=== PATIENT | female | born 1935 | race Hispanic/Latino ===

== ENCOUNTER 2017-03-16 18:03 | Inpatient (IN) | payer MEDICARE, OTHER ==
[2017-03-16 18:04] VITALS: BMI 24.4
[2017-03-16] MEDS ORDERED: Nitroglycerin 2% Ointment Foilpak UD TOP ONE (18:09)
[2017-03-16] MEDS ORDERED: Metoprolol 1 mg/ml Inj IVP ONE ×2 (18:09→18:30)
--- NOTE | 2017-03-16 18:29 | CT ---
PROCEDURE: CT HEAD WITHOUT CONTRAST. HISTORY: Code Stroke. Possible CVA COMPARISON: 01/23/2015. TECHNIQUE: Axial computed tomography images were obtained through the head/brain without intravenous contrast. Radiation dose: Total exam DLP = 317.14 mGy-cm. This CT exam was performed using one or more of the following dose reduction techniques: Automated exposure control, adjustment of the mA and/or kV according to patient size, and/or use of iterative reconstruction technique. FINDINGS: HEMORRHAGE: Left temporal hemorrhage. The hemorrhagic component measure approximately 4.2 cm. Adjacent subarachnoid hemorrhage. Modest effacement of cortical sulci in the vicinity of the hemorrhage. No midline shift. BRAIN: Acute hemorrhagic process represents a new finding compared to the prior CT 01/23/2015. VENTRICLES: No evidence of midline shift. 3rd and 4th ventricles, lateral ventricles are unremarkable. CALVARIUM: Unremarkable. PARANASAL SINUSES: Unremarkable as visualized. No significant inflammatory changes. MASTOID AIR CELLS: Unremarkable as visualized. No inflammatory changes. OTHER FINDINGS: None. IMPRESSION: Acute left temporal lobe hemorrhage and adjacent subarachnoid hemorrhage. Code stroke protocol: Study completed 18:23. Results conveyed verbally at 18:25. Findings discussed directly with attending physician in the emergency department Dr. Munson Interpretation finalized and available for review 18:27. March 16, 2017.
--- NOTE | 2017-03-16 18:51 | C.PDOC ---
History Of Present Illness 81 y/o female brought to ED by EMS for sudden change of mental status and right facial droop at 5:15 PM, patient arrives to ER at 6:00 PM. Patient with PMHx of atrial fibrillation. Patient was asked to stopped blood thinner 2 days ago due to nose bleeds and rectal bleeding. Otherwise, denies extremity weakness or numbness, headache, chest pain, shortness of breath, nausea, vomiting, fever, chills. Patient noted to be hypertensive and tachycardic in the field as per EMS. Time Seen by Provider: 03/16/17 18:08 Chief Complaint (Nursing): Weakness/Neurological Deficit History Per: Patient History/Exam Limitations: no limitations Onset/Duration Of Symptoms: Sudden Onset (@ 17:15) Current Symptoms Are (Timing): Still Present Fall Associated With With Symptoms: No Recent travel outside of the [place]: No Past Medical History Reviewed: Historical Data, Nursing Documentation, Vital Signs Vital Signs: Last Vital Signs Temp 98.1 F 03/16/17 18:15 Pulse 61 03/16/17 20:25 Resp 17 03/16/17 20:25 BP 139/75 03/16/17 20:25 Pulse Ox 100 03/16/17 20:25 - Medical History PMH: Arthritis, Asthma, Atrial Fibrillation, Cardia Arrhythmia (A-FIB), COPD, Deep Vein Thrombosis (Right Leg), Fractures (L Hip ORIF 2013), HTN, Hypercholesterolemia, Osteoporosis Denies: Chronic Kidney Disease - [facility] Procedures ENDO RECTUM POLYPECTOMY (02/04/15) ENDOSC POLYPECTOMY OF LG INTEST (02/04/15) OPEN REDUC-INT FIX FEMUR (08/17/14) SUTURE OF LIP LACERATION (08/17/14) TETANUS TOXOID ADMINIST (08/17/14) Family History: States: Unknown Family Hx - Social History Hx Tobacco Use: No Hx Alcohol Use: No Hx Substance Use: No - Immunization History Hx Tetanus Toxoid Vaccination: Yes Hx Influenza Vaccination: Yes Hx Pneumococcal Vaccination: Yes Review Of Systems Except As Marked, All Systems Reviewed And Found Negative. Constitutional: Negative for: Fever, Chills Cardiovascular: Negative for: Chest Pain, Palpitations Respiratory: Negative for: Cough, Shortness of Breath, Wheezing Gastrointestinal: Negative for: Nausea, Vomiting Neurological: Positive for: Weakness (left facial droop), Confusion. Negative for: Headache Physical Exam - Physical Exam Appears: Non-toxic, Confused, Other (disoriented, nonsensical speech, few words) Skin: Warm, Dry Head: Atraumatic, Normacephalic Eye(s): bilateral: Normal Inspection Chest: Symmetrical Cardiovascular: Rhythm Regular Respiratory: Normal Breath Sounds, No Rales, No Rhonchi, No Wheezing Gastrointestinal/Abdominal: Soft, No Tenderness Back: Normal Inspection Extremity: Normal ROM, Other (moving all extremities purposefully ) Other Neurological Findings: Facial Palsy (right facial droop) Extremity: Right: No Drift, Left: No Drift, Upper: No Drift, Lower: No Drift ED Course And Treatment - Laboratory Results Result Diagrams: 03/16/17 18:51 03/16/17 18:51 Lab Interpretation: Normal (TROP neg, INR 1.2) ECG: Interpreted By [place] ECG Rhythm: Atrial Fibrillation (112) ECG Interpretation: No Changes From Prior, Abnormal Rate From EC O2 Sat by Pulse Oximetry: 98 Pulse Ox Interpretation: Normal - Radiology CXR: Interpreted by [place] CXR Interpretation: Yes: No Acute Disease - CT Scan/US CT Head Code Stroke Other Rad Studies (CT/US): Radiology Report Reviewed CT/US Interpretation: IMPRESSION: Acute left temporal lobe hemorrhage and adjacent subarachnoid hemorrhage. Progress Note: CT Head ordered. CxR, EKG, bloodwork, urinalysis. Treated with nitro paste, cardizem bolus and drip. 18:10 - Paged Dr. Monsalve. 18:30 - Discussed with Dr. Morrell. Case discussed with ICU and PMD Dr. Park. 2030: Dr. Jaramillo, ICU, @ bedside, approves of treatment. diagnosis and Code status d/w family @ bedside- INR form completed. Reevaluation Time: 20:35 Reassessment Condition: Improved (during bose placement, pt fighting off nurses with normal verbage and coordinate purposeful movement of both arms and legs.) Critical Care Time - Critical Care Note Total Time (in mins): 90 Documented critical care: time excludes all time spent performing seperately billable procedures. NIHSS Stroke Scale - Date/Time Evaluation Performed Date Performed: 03/16/17 Time Performed: 18:00 - How Severe is the Stoke Level of Consciousness: 1=Drowsy LOC to Questions: 2=Neither correct LOC to commands: 2=Neither correct Best Gaze: 0=Normal Visual: 0=No visual loss Facial: 2=Partial (lower face paralysis) (R facial droop) Motor Arm - Left: 0=No drift Motor Arm - Right: 0=No drift Motor Leg - Left: 0=No drift Motor Leg - Right: 0=No drift Limb Ataxia: 0=Absent Sensory: 0=Normal Best Language: 3=Mute Dysarthia: 2=Severe, near unintelligible or worse Extinction & Inattention (Neglect): 0=Normal, no object Score: 12 Severity Of Stroke: 5-15= Moderate Stroke rTPA Inclusion/Exclusion - Refusal of Treatment Patient Refused Treatment: No - Inclusion Criteria for Altepase Patient is 18 years or Older: Yes The Clinical Diagnosis of Ischemic Stroke That is Causing a Potentially Disabling Neurological Deficit: Yes Time of Onset is Well Established to be Less Than 270 Minute Before Treatment Would Begin: Yes Risk/Benefit Discussed With Patient/Family Member Present: Yes - Exclusion Criteria for Altepase Uncontrolled Hypertension at Time of Treatment (Systolic BP above 185 or Diastolic BP above 110 mmHg): Yes Active Internal Bleeding: No Known Bleeding Diathesis Including but Not Limited to: Platelets Below 100,000/ mm,PTT Above 40 sec After Heparin Use, Current Use of Oral Anitcoagulant With INR Greater Than 1.7 or PT Greater Than 15 secs: Yes Evidence of an Intracranial Hemorrhage: Yes Evidence of Major Acute Infarct With Signs Greater Than 1/3 MCA Territory: No Suspicion of Subarachnoid Hemorrhage on Pretreatment Evaluation Even if CT Head Negative For Hemorrhage: No - Warning to TPA With Conditions Condition: Age Greater Than 75 years (intracranial bleed) Medical Decision Making Medical Decision Making: acute L temporal hemispheric bleed, pt formerly on Coumadin which was d/c'd for epistaxis and lower GI bleed, Daily ASA 81 may offer some platelet dysfunction but plt count normal Disposition Doctor Will See Patient In The: Hospital Counseled Patient/Family Regarding: Studies Performed, Diagnosis - Disposition Disposition: HOSPITALIZED Disposition Time: 20:37 Condition: GUARDED - POA Core Measure Indicators: Code Stroke - Clinical Impression Clinical Impression: Intracranial bleed - Scribe Statement The provider has reviewed the documentation as recorded by the Bertha Sim Provider Scribe Attestation: All medical record entries made by the Bertha were at my direction and personally dictated by me. I have reviewed the chart and agree that the record accurately reflects my personal performance of the history, physical exam, medical decision making, and the department course for this patient. I have also personally directed, reviewed, and agree with the discharge instructions and disposition.
[2017-03-16 18:57] LABS: BASO # 0.1 K/uL (0.0-0.2); BASO % 0.8 % (0.0-2.0); EOS # 0.2 K/uL (0.0-0.7); EOS % 3.4 % (0.0-4.0); HEMATOCRIT 42.7 % (34.0-47.0); LYMPH # 1.4 K/uL (1.0-4.3); LYMPH % 21.3 % (20.0-40.0); MEAN CELL VOLUME 90.3 fL (81.0-99.0); MEAN CORPUSCULAR HEMOGLOBIN 29.6 pg (27.0-31.0); MEAN CORPUSCULAR HGB CONC 32.8 g/dL (33.0-37.0); MEAN PLATELET VOLUME 6.7 fL (7.2-11.7); MONO # 0.7 K/uL (0.0-0.8); NRBC % 0.1 % (0.0-2.0); RED CELL DISTRIBUTION WIDTH 13.7 % (11.5-14.5); WHITE BLOOD COUNT 6.6 K/uL (4.8-10.8)
[2017-03-16 19:05] LABS: CHLORIDE 101 mmol/L (98-107); SODIUM 142 mmol/L (132-148)
[2017-03-16 19:06] LABS: INR 1.2; POTASSIUM 3.4 mmol/L (3.6-5.2)
[2017-03-16 19:07] LABS: CHOLESTEROL 149 mg/dL (0-199)
[2017-03-16 19:08] LABS: ALB/GLOB RATIO 1.4 (1.0-2.1); ALKALINE PHOSPHATASE 83 U/L (38-126); ALT/SGPT 24 U/L (9-52); AST/SGOT 42 U/L (14-36); BILIRUBIN,TOTAL 1.1 mg/dL (0.2-1.3); BLOOD UREA NITROGEN 13 mg/dL (7-17); CALCIUM 9.1 mg/dl (8.6-10.4); CARBON DIOXIDE 26 mmol/L (22-30); GFR AFRICAN-AMERICAN > 60; GLUCOSE,RANDOM 82 mg/dL (65-105); TOTAL PROTEIN 6.8 g/dL (6.3-8.3)
--- NOTE | 2017-03-16 19:11 | CP.PCM.HP ---
History of Present Illness - History of Present Illness History of Present Illness: 81 years old with PMH Hypertension AFib Chronic Hypokalemia s/p work up years ago Patient was fine until few hours before admission,s when patient was noted to have changes in mental status- talking differently , family called 911 and brought to ER - iIn ER , ct scan of the head showed left temporal hemorrhage and patient was admitted for further evaluation and management . While in ER_ family signed DNR /DNI as per patient's wish ROS - no recent fever no cough no other complaint Recently- patient was placed on coumadin for AFIB- but due to noted blood in stool, , coumadin was held- PMH AFIB Hypertension COPD Gen Arthritis Chronic HypokalemiaHistry of leg fracture years ago Scoliosis Retinal DEtachment Cholelithiasis meds losartan 100 lasix 20 prn potassium combivent metoprolol 50 bid off warfarin due to bleeding Immunization completed pneumonia social non smoker non ETOH Present on Admission - Present on Admission Any Indicators Present on Admission: No History of DVT/PE: No History of Uncontrolled Diabetes: No Urinary Catheter: No Decubitus Ulcer Present: No Review of Systems - Review of Systems Systems not reviewed;Unavailable: Altered Mental Status - Constitutional Constitutional: Other (as per family ). absent: Chills, Fever, Night Sweats - EENT Eyes: absent: Other Visual Disturbances Ears: absent: Dizziness Nose/Mouth/Throat: absent: Nasal Congestion, Sore Throat - Cardiovascular Cardiovascular: absent: Chest Pain, Pedal Edema - Respiratory Respiratory: absent: Cough, Chest Congestion - Gastrointestinal Gastrointestinal: absent: Abdominal Pain, Hematemesis, Vomiting - Genitourinary Genitourinary: absent: Difficulty Urinating, Hematuria - Integumentary Integumentary: absent: Rash, Sores - Neurological Neurological: Abnormal Speech - Psychiatric Psychiatric: Confusion - Hematologic/Lymphatic Hematologic: Other (weeks ago- rectal blood ) Past Patient History - Infectious Disease Hx of Infectious Diseases: None - Past Medical History & Family History Past Medical History?: Yes - Past Social History Smoking Status: Former Smoker - CARDIAC Hx Atrial Fibrillation: Yes Hx Cardia Arrhythmia: Yes (A-FIB) Hx Hypercholesterolemia: Yes Hx Hypertension: Yes - PULMONARY Hx Asthma: Yes Hx Chronic Obstructive Pulmonary Disease (COPD): Yes - NEUROLOGICAL Hx Neurological Disorder: No HX Cerebrovascular Accident: Yes (01/2015) - HEENT Hx HEENT Problems: No Hx Cataracts: Yes (Rock Lens Implant) - RENAL Hx Chronic Kidney Disease: No - ENDOCRINE/METABOLIC Hx Endocrine Disorders: No - HEMATOLOGICAL/ONCOLOGICAL Hx Blood Disorders: No - INTEGUMENTARY Hx Dermatological Problems: No - MUSCULOSKELETAL/RHEUMATOLOGICAL Hx Arthritis: Yes Hx Fractures: Yes (L Hip ORIF 2013) Hx Osteoporosis: Yes - GASTROINTESTINAL Hx Gastrointestinal Disorders: No Other/Comment: DENIES ANY RECTAL BLEEDING OR ANY SYMPTOMS - GENITOURINARY/GYNECOLOGICAL Hx Genitourinary Disorders: Yes Hx Incontinence: Yes - PSYCHIATRIC Hx Substance Use: No - SURGICAL HISTORY Hx Surgeries: Yes Hx Cataract Extraction: Yes Hx Eye Surgery: Yes (CATARACTS) Hx Hysterectomy: Yes (1979) Hx Open Reduction Internal Fixation: Yes (LEFT HIP REPLACEMENT WITH RODS) Hx Orthopedic Surgery: Yes (L Hip ORIF) Other/Comment: Rock retinal surgery done 2x - ANESTHESIA Hx Anesthesia: Yes Hx Anesthesia Reactions: No Hx Malignant Hyperthermia: No Meds Allergies/Adverse Reactions: Allergies Allergy/AdvReac Type Severity Reaction Status Date / Time azithromycin [From Zithromax] Allergy Verified 03/16/17 18:12 iodine Allergy Verified 03/16/17 18:12 Penicillins Allergy Verified 03/16/17 18:12 Sulfa (Sulfonamide Allergy Verified 03/16/17 18:12 Antibiotics) seafood Allergy Uncoded 03/16/17 18:12 Physical Exam - Constitutional Appears: Non-toxic - Head Exam Head Exam: ATRAUMATIC, NORMOCEPHALIC - Eye Exam Eye Exam: Normal appearance. absent: Periorbital swelling - ENT Exam ENT Exam: Mucous Membranes Moist - Neck Exam Neck exam: Positive for: Full Rom. Negative for: Meningismus - Respiratory Exam Respiratory Exam: Clear to Auscultation Bilateral, NORMAL BREATHING PATTERN - Cardiovascular Exam Cardiovascular Exam: Irregular Rhythm - GI/Abdominal Exam GI & Abdominal Exam: Normal Bowel Sounds, Soft. absent: Distended - Neurological Exam Neurological exam: Altered - Skin Skin Exam: Intact, Normal Color Results - Vital Signs Recent Vital Signs: Last Vital Signs Temp 98.1 F 03/16/17 18:15 Pulse 105 H 03/16/17 18:29 Resp 18 03/16/17 18:29 BP 156/97 H 03/16/17 18:29 Pulse Ox 98 03/16/17 19:02 - Labs Result Diagrams: 03/17/17 06:06 03/17/17 06:06 Assessment & Plan - Assessment and Plan (Free Text) Assessment: Patient with hypertension AFIB admitted for Left temporal hemorrhagic stroke, to ICU, neru/neurosurgeon consultation supportive A fib- medications willnotify her cardio Hypokalemia, for supplementation GI prophylaxis no dvt prophylaxis due to hemorrhagic stroke -
--- NOTE | 2017-03-16 22:06 | CP.PCM.CON ---
History of Present Illness - History of Present Illness History of Present Illness: CCM 81 yo female with hx A-fib /HTN /HLD /DVT /COPD /Osteoporosis /L hip ORIF /to ED after family noted altered MS and R facial droop this afternoon. Pt recently had epistaxis and rectal bleed and coumadin was d/c'd. Pt speech is incomprehensible and unable to give hx. In ED pt in rapid A-fib treated with cardizem and metoprolol. Rate controlled on monitor when seen in ED. CT showed large left temproal bleed and Neurosurgery said no inteervention. ROS- as noted All- PCN /Iodine /Azithromycin Social- ex-tob/ no etoh or drugs Meds- reviewed FH- Unknown PE T- 98.1 P-78 R-17 BP-129/78 Perrl Neck- o jvdlungs- bilat bs Heart-irreg irreg Abd- benign ext- bipedal edema Neuro- moves all ext, RUE weakness,Aphasia, Dysarthria Labs, ekg, [id number] A&P Left Temporal Bleed A-fib HTN HLD COPD Arthritis Hx DVT Osteoporosis Admit to ICU neuro checks Neurology eval Repeat CT Brain as per Neurosurgery cont rate control speech and swallow PT eval SCD's & GI prophylaxis Maintain optimal lytes ECHO Past Patient History - Infectious Disease Hx of Infectious Diseases: None - Past Medical History & Family History Past Medical History?: Yes - Past Social History Smoking Status: Former Smoker - CARDIAC Hx Atrial Fibrillation: Yes Hx Cardia Arrhythmia: Yes (A-FIB) Hx Hypercholesterolemia: Yes Hx Hypertension: Yes - PULMONARY Hx Asthma: Yes Hx Chronic Obstructive Pulmonary Disease (COPD): Yes - NEUROLOGICAL Hx Neurological Disorder: No HX Cerebrovascular Accident: Yes (01/2015) - HEENT Hx HEENT Problems: No Hx Cataracts: Yes (Rock Lens Implant) - RENAL Hx Chronic Kidney Disease: No - ENDOCRINE/METABOLIC Hx Endocrine Disorders: No - HEMATOLOGICAL/ONCOLOGICAL Hx Blood Disorders: No - INTEGUMENTARY Hx Dermatological Problems: No - MUSCULOSKELETAL/RHEUMATOLOGICAL Hx Arthritis: Yes Hx Fractures: Yes (L Hip ORIF 2013) Hx Osteoporosis: Yes - GASTROINTESTINAL Hx Gastrointestinal Disorders: No Other/Comment: DENIES ANY RECTAL BLEEDING OR ANY SYMPTOMS - GENITOURINARY/GYNECOLOGICAL Hx Genitourinary Disorders: Yes Hx Incontinence: Yes - PSYCHIATRIC Hx Substance Use: No - SURGICAL HISTORY Hx Surgeries: Yes Hx Cataract Extraction: Yes Hx Eye Surgery: Yes (CATARACTS) Hx Hysterectomy: Yes (1979) Hx Open Reduction Internal Fixation: Yes (LEFT HIP REPLACEMENT WITH RODS) Hx Orthopedic Surgery: Yes (L Hip ORIF) Other/Comment: Rock retinal surgery done 2x - ANESTHESIA Hx Anesthesia: Yes Hx Anesthesia Reactions: No Hx Malignant Hyperthermia: No Meds Allergies/Adverse Reactions: Allergies Allergy/AdvReac Type Severity Reaction Status Date / Time azithromycin [From Zithromax] Allergy Verified 03/16/17 18:12 iodine Allergy Verified 03/16/17 18:12 Penicillins Allergy Verified 03/16/17 18:12 Sulfa (Sulfonamide Allergy Verified 03/16/17 18:12 Antibiotics) seafood Allergy Uncoded 03/16/17 18:12 - Medications Medications: Current Medications Diltiazem HCl 125 mg/ Sodium (Chloride) 125 mls @ 10 mls/hr IV .[id number] EMILIE PRN Reason: 10 MG/HR Last Admin: 03/16/17 21:07 Dose: 10 mls/hr Results - Vital Signs Recent Vital Signs: Last Vital Signs Temp 98.1 F 03/16/17 18:15 Pulse 78 03/16/17 21:06 Resp 17 03/16/17 21:06 BP 129/78 03/16/17 21:06 Pulse Ox 98 03/16/17 21:56 - Labs Result Diagrams: 03/16/17 18:51 03/16/17 18:51 Labs: Laboratory Results - last 24 hr 03/16/17 03/16/17 19:28 21:02 Digoxin < 0.4 L Blood Type B NEGATIVE Antibody Screen Negative Assessment & Plan (1) Intracranial bleed Status: Acute (2) A-fib Status: Acute (3) Hypertension Status: Chronic (4) COPD (chronic obstructive pulmonary disease) Status: Chronic Priority: Low
--- NOTE | 2017-03-16 23:14 | RAD ---
HISTORY: code stroke COMPARISON: Chest x-ray performed 01/23/15 TECHNIQUE: Chest, one view. FINDINGS: Examination limited by patient obliquity and habitus. LUNGS: No focal consolidation. Scattered probable granulomas. Please note that chest x-ray has limited sensitivity for the detection of pulmonary masses. PLEURA: No significant pleural effusion identified. No definite pneumothorax . CARDIOVASCULAR: Cardiomegaly. OSSEOUS STRUCTURES: Scoliosis. Osseous demineralization. Degenerative changes of the spine and shoulders. VISUALIZED UPPER ABDOMEN: Elevation of the left hemidiaphragm. OTHER FINDINGS: None. IMPRESSION: Cardiomegaly. Evidence of prior granulomatous infection.
[2017-03-16] MEDS ORDERED: Sodium Chloride 0.9% 1,000 ML IV SCH (23:30)
--- NOTE | 2017-03-17 00:23 | CON ---
DATE: 03/16/2017 This patient is a 81-year-old lady with a known history of multi-infarct dementia and atrial fibrilla tion, was on some type of anticoagulant and to be determined by the family. Was brought in with acut e onset of dysarthria. Was found to have an intraparenchymal hemorrhage. Neurosurgical evaluation w as requested. Reviewing the CT scan, there is a rather large, mostly frontal, mildly temporal, intraparenchymal hem atoma. Already has some surrounding edema, which would indicate that it is not very acute. In any c ase, because of her atrophy, there is very minimal mass effect. In any case, the patient has been on anticoagulation. There is obviously no intervention to be done. In any case, I would not advocate evacuating this hematoma as I do not believe her neurological sta tus can be determined. Obviously, with a preexisting history of multi-infarct dementia, previous str okes, and this new dominant frontotemporal hemorrhage, her prognosis for significant recovery is quit e poor. William Morrell MD cc: 131 TT: 03/17/2017 00:22:44 Confirmation # [id number] Dictation # [id number] christian
[2017-03-17] MEDS ORDERED: Phytonadione 10 mg/ml Inj (Adult) IV STA (06:02)
[2017-03-17 06:13] LABS: BASO # 0.1 K/uL (0.0-0.2); BASO % 1.3 % (0.0-2.0); EOS % 0.1 % (0.0-4.0); HEMATOCRIT 42.2 % (34.0-47.0); LYMPH # 0.5 K/uL (1.0-4.3); LYMPH % 6.3 % (20.0-40.0); MEAN CELL VOLUME 90.7 fL (81.0-99.0); MEAN CORPUSCULAR HEMOGLOBIN 29.7 pg (27.0-31.0); MEAN CORPUSCULAR HGB CONC 32.8 g/dL (33.0-37.0); MEAN PLATELET VOLUME 6.6 fL (7.2-11.7); MONO # 0.3 K/uL (0.0-0.8); MONO % 3.9 % (0.0-10.0); PLATELET COUNT 276 K/uL (130-400); RED CELL DISTRIBUTION WIDTH 13.5 % (11.5-14.5); WHITE BLOOD COUNT 8.5 K/uL (4.8-10.8)
[2017-03-17 06:23] LABS: INR 1.3
[2017-03-17 06:26] LABS: CHLORIDE 101 mmol/L (98-107); POTASSIUM 3.4 mmol/L (3.6-5.2); SODIUM 138 mmol/L (132-148)
[2017-03-17 06:28] LABS: AST/SGOT 40 U/L (14-36); BILIRUBIN,TOTAL 1.2 mg/dL (0.2-1.3); CARBON DIOXIDE 25 mmol/L (22-30); GFR AFRICAN-AMERICAN > 60
[2017-03-17 06:29] LABS: ALB/GLOB RATIO 1.4 (1.0-2.1); ALKALINE PHOSPHATASE 79 U/L (38-126); ALT/SGPT 36 U/L (9-52); BLOOD UREA NITROGEN 8 mg/dL (7-17); CALCIUM 8.5 mg/dl (8.6-10.4); GLUCOSE,RANDOM 115 mg/dL (65-105); TOTAL PROTEIN 6.7 g/dL (6.3-8.3)
--- NOTE | 2017-03-17 08:32 | CP.PCM.CON ---
History of Present Illness - History of Present Illness History of Present Illness: stable this am eyes open l gaze pref r facial sever g;lobal dysphasia actually fairly surprising strenth on r f/u ct today prog guarded d/w family at bedside Past Patient History - Infectious Disease Hx of Infectious Diseases: None - Past Medical History & Family History Past Medical History?: Yes - Past Social History Smoking Status: Never Smoked - CARDIAC Hx Atrial Fibrillation: Yes Hx Cardia Arrhythmia: Yes (A-FIB) Hx Hypercholesterolemia: Yes Hx Hypertension: Yes Hx Peripheral Edema: Yes - PULMONARY Hx Asthma: Yes Hx Chronic Obstructive Pulmonary Disease (COPD): Yes - NEUROLOGICAL Hx Neurological Disorder: No HX Cerebrovascular Accident: Yes (01/2015) - HEENT Hx HEENT Problems: No Hx Cataracts: Yes (Rock Lens Implant) - RENAL Hx Chronic Kidney Disease: No - ENDOCRINE/METABOLIC Hx Endocrine Disorders: No - HEMATOLOGICAL/ONCOLOGICAL Hx Blood Disorders: No - INTEGUMENTARY Hx Dermatological Problems: No - MUSCULOSKELETAL/RHEUMATOLOGICAL Hx Falls: Yes - GASTROINTESTINAL Hx Gastrointestinal Disorders: No Other/Comment: DENIES ANY RECTAL BLEEDING OR ANY SYMPTOMS - GENITOURINARY/GYNECOLOGICAL Hx Genitourinary Disorders: Yes Hx Incontinence: Yes - PSYCHIATRIC Hx Substance Use: No - SURGICAL HISTORY Hx Surgeries: Yes Hx Cataract Extraction: Yes Hx Eye Surgery: Yes (CATARACTS) Hx Hysterectomy: Yes (1979) Hx Open Reduction Internal Fixation: Yes (LEFT HIP REPLACEMENT WITH RODS) Hx Orthopedic Surgery: Yes (L Hip ORIF) Other/Comment: Rock retinal surgery done 2x - ANESTHESIA Hx Anesthesia: Yes Hx Anesthesia Reactions: No Hx Malignant Hyperthermia: No Meds Allergies/Adverse Reactions: Allergies Allergy/AdvReac Type Severity Reaction Status Date / Time azithromycin [From Zithromax] Allergy Verified 03/16/17 18:12 iodine Allergy Verified 03/16/17 18:12 Penicillins Allergy Verified 03/16/17 18:12 Sulfa (Sulfonamide Allergy Verified 03/16/17 18:12 Antibiotics) seafood Allergy Uncoded 03/16/17 18:12 - Medications Medications: Current Medications Digoxin (Lanoxin) 0.125 mg IVP Q24H EMILIE Famotidine (Pepcid) 20 mg IVP DAILY EMILIE Diltiazem HCl 125 mg/ Sodium (Chloride) 125 mls @ 10 mls/hr IV .[id number] EMILIE PRN Reason: 10 MG/HR Last Admin: 03/16/17 21:07 Dose: 10 mls/hr Potassium Chloride 10 meq/ (Sodium Chloride) 1,005 mls @ 125 mls/hr IV .[id number] EMILIE Last Admin: 03/17/17 04:30 Dose: 125 mls/hr Results - Vital Signs Recent Vital Signs: Last Vital Signs Temp 98.4 F 03/17/17 00:00 Pulse 89 03/17/17 00:00 Resp 15 03/17/17 00:00 BP 129/76 03/17/17 00:00 Pulse Ox 95 03/17/17 00:00 - Labs Result Diagrams: 03/17/17 06:06 03/17/17 06:06 Labs: Laboratory Results - last 24 hr 03/16/17 03/16/17 03/16/17 19:28 21:02 22:28 WBC RBC Hgb Hct MCV MCH MCHC RDW Plt Count MPV Neut % (Auto) Lymph % (Auto) [place] % (Auto) Eos % (Auto) Baso % (Auto) Neut # Lymph # [place] # Eos # Baso # PT INR APTT Sodium Potassium Chloride Carbon Dioxide Anion Gap BUN Creatinine Est GFR ( Amer) Est GFR (Non-Af Amer) POC Glucose (mg/dL) 131 H Random Glucose Calcium Total Bilirubin AST ALT Alkaline Phosphatase Total Protein Albumin Globulin Albumin/Globulin Ratio Digoxin < 0.4 L Blood Type B NEGATIVE Antibody Screen Negative 03/17/17 03/17/17 03/17/17 06:06 06:06 06:06 WBC 8.5 RBC 4.65 Hgb 13.8 Hct 42.2 MCV 90.7 MCH 29.7 MCHC 32.8 L RDW 13.5 Plt Count 276 MPV 6.6 L Neut % (Auto) 88.4 H Lymph % (Auto) 6.3 L [place] % (Auto) 3.9 Eos % (Auto) 0.1 Baso % (Auto) 1.3 Neut # 7.5 H Lymph # 0.5 L [place] # 0.3 Eos # 0.0 Baso # 0.1 PT 14.1 H INR 1.3 APTT 31 Sodium 138 Potassium 3.4 L Chloride 101 Carbon Dioxide 25 Anion Gap 15 BUN 8 Creatinine 0.4 L Est GFR ( Amer) > 60 Est GFR (Non-Af Amer) > 60 POC Glucose (mg/dL) Random Glucose 115 H Calcium 8.5 L Total Bilirubin 1.2 AST 40 H ALT 36 Alkaline Phosphatase 79 Total Protein 6.7 Albumin 3.9 Globulin 2.7 Albumin/Globulin Ratio 1.4 Digoxin Blood Type Antibody Screen 03/17/17 07:26 WBC RBC Hgb Hct MCV MCH MCHC RDW Plt Count MPV Neut % (Auto) Lymph % (Auto) [place] % (Auto) Eos % (Auto) Baso % (Auto) Neut # Lymph # [place] # Eos # Baso # PT INR APTT Sodium Potassium Chloride Carbon Dioxide Anion Gap BUN Creatinine Est GFR ( Amer) Est GFR (Non-Af Amer) POC Glucose (mg/dL) 112 H Random Glucose Calcium Total Bilirubin AST ALT Alkaline Phosphatase Total Protein Albumin Globulin Albumin/Globulin Ratio Digoxin Blood Type Antibody Screen
[2017-03-17 08:43] LABS: NEUTROPHIL 91 % (50-75); TOTAL CELLS COUNTED 100
--- NOTE | 2017-03-17 09:57 | CT ---
PROCEDURE: CT HEAD WITHOUT CONTRAST. HISTORY: f/u ICB COMPARISON: None available. TECHNIQUE: Axial computed tomography images were obtained through the head/brain without intravenous contrast. Radiation dose: Total exam DLP = 1142.32 mGy-cm. This CT exam was performed using one or more of the following dose reduction techniques: Automated exposure control, adjustment of the mA and/or kV according to patient size, and/or use of iterative reconstruction technique. FINDINGS: HEMORRHAGE: Previously noted large hematoma, the epicenter of which is located in the left temporal lobe extending posteriorly and superiorly into the left parietal operculum and left superior parietal lobe has increased in size measuring approximately 7 cm AP x 4.7 cm trans. The hematoma surrounded by a rim of low-attenuation edema or necrotic brain tissue. Edema also seen extending along the white matter tracts of the left basal ganglia. The hematoma and attendant surrounding edema exert considerable mass effect with compression of the left lateral ventricle and overlying sulcal effacement. The temporal horns also markedly compressed and displaced medially. There is mild [id number] midline shift with septum pellucidum approximately 2.3 cm to the right of midline. BRAIN: Mild pre-existing chronic periventricular white matter ischemic changes are also felt to be present. In addition, there are chronic appearing bilateral basal nuclei lacunar type infarcts. Note made of a few tiny bubbles of air within the region of the right cavernous sinus. VENTRICLES: Unremarkable. No hydrocephalus. CALVARIUM: Unremarkable. PARANASAL SINUSES: Mild mucosal thickening left maxillary antrum and right chamber of the sphenoid sinus MASTOID AIR CELLS: Unremarkable as visualized. No inflammatory changes. OTHER FINDINGS: Again noted is a elliptical shaped radiopaque density abutting the medial aspect left orbit. Patient is status post bilateral cataract surgery. . IMPRESSION: Increase size large left temporal and parietal hematoma as detailed above. In addition, there is marked increased mass effect with compression of the left lateral ventricle particularly the left temporal horn and shift of the septum pellucidum from left to right. Overlying sulcal effacement. See above discussion for additional findings and details.
--- NOTE | 2017-03-17 12:16 | CON ---
DATE: 03/17/2017 LOCATION: The patient is in ICU bed 8. REASON FOR CONSULTATION: Abnormal change in mental status with abnormal CT scan. CHIEF COMPLAINT: The patient was brought in to [facility] by her daughter with a history of new change in mental status with right facial droop since yesterday 5:15 p.m. The patient was brought into [facility] for further evaluation. From neurological point of view, I was called in to evaluate her because of her abnormal workup while she was in the Emergency Room. HISTORY OF PRESENT ILLNESS: The patient is a 81-year-old right-handed female who is known to me from her previous stroke associating with intracerebral bleed secondary to her cardiac arrhythmias. She was stable, been started back on anticoagulation. She was stable for almost a year or so. Recently seen by me, when she was stable from neurologically. She had a followup visit with her primary physician because of rectal bleed as well as a nosebleed. Her Coumadin was on hold because of her symptoms. Yesterday, her daughter noticed her change in mental status with right nasolabial fold flattening, with speech impairment. Immediately she was brought into [facility] for further evaluation. PAST MEDICAL HISTORY: She is hypertensive, stroke, and atrial fibrillation. ALLERGIES: AZITHROMYCIN, IODINE, PENICILLIN, SULFA, AND SEAFOOD. PERSONAL HISTORY: Denies smoking or alcohol use. MEDICATIONS AT HOME: Metoprolol, furosemide, losartan, and digoxin. REVIEW OF SYSTEMS: As per H and P. PHYSICAL EXAMINATION: VITAL SIGNS: Blood pressure 121/88, with mean arterial pressure of 99, respiratory rate is 16, temperature afebrile. Pulse rate runs between 90-110. GENERAL: The patient is examined in the presence of her daughter. She is awake but confused. NECK: Supple. No carotid bruit. HEART: Sounds are regular, but tachycardia. EXTREMITIES: Seems to be weak on her right side. NEUROLOGIC EXAMINATION: MENTAL STATUS EXAMINATION: She is awake. She was not able to recognize me. Good visual cue mostly on her left side. Pupils are reactive to light. Decreased visual threat on her right side. Significant facial asymmetry manifesting as a flattening of the right nasolabial fold. Hearing seems to be intact. Her speech is not understandable presenting with a sensory aphasia, apparently Wernicke's aphasia. Tongue moist. Gag was not able to evaluate. MOTOR: She moves left side more than the right side. Right leg is externally rotated. Tone is slightly increased on the right compared with the left side. DEEP TENDON REFLEXES: Trace on either side. Plantars are upgoing on both sides. SENSORY EXAMINATION: Significantly decreased to pain on the right side to compare with the left side. COORDINATION AND GAIT: Deferred at this time because the patient is not cooperative. CONCLUSION: Upon reviewing her history and neurological examination, the patient is presenting with dominant hemispheric temporal parietal dysfunction, presenting with change in mental status with Wernicke's aphasia, right hemiparesis, with right possible superior quadrantanopsia. Considering her history of anticoagulation due to her cardiac arrhythmia, probably the cause. Considering her age, other possible causes including amyloid angiopathy should be considered. WORKUP: CT of the head reviewed by me showed a 4.6 cm lobar hemorrhage with mild mass effect without any shift noted on her left side. BLOOD WORKUP: WBC 8.5, hemoglobin 13.8, hematocrit 42.2, platelet 276. PT 14.1 , INR 1.3, PTT 31. Sodium 138, potassium 3.4, chloride 101, bicarbonate 25. GFR more than 60, glucose 112, calcium 8.5. AST 40. Triglyceride 89, cholesterol 149, LDL 50, HDL 86 with a digoxin level 0.4. RECOMMENDATIONS: 1. Repeat CT of the head today to assess for progression of the bleed. 2. Head in elevation. Continue Schofield catheterization. 3. Stop all antiplatelet as well as anticoagulation. 4. Sequential RAMONA stockings. 5. Keep the blood pressure mean arterial pressure around 100. When medically stable, the patient definitely needs MRI of the brain. The patient had intracerebral bleed with normal coagulation profile. I think the patient may have amyloid angiopathy. No need any neurosurgical intervention at present. Continue the present management in the ICU. The patient's condition has been discussed with her doctor, and explained her prognosis, of her acute problem, as well as the progression of her issues. Nelson Gaffney MD cc: [id number] TT: 03/17/2017 12:15:27 Confirmation # [id number] Dictation # [id number]
--- NOTE | 2017-03-17 12:29 | CP.CCUPN ---
CCU Subjective - Physician Review Events Since Last Encounter (Free Text): 03/17/17 12:13 patient is alert but not following commands. CCU Objective - Vital Signs / Intake & Output Intake and Output (Last 8hrs): Intake & Output 03/16/17 03/17/17 03/17/17 22:59 06:59 14:59 Intake Total 10 1040 125 Output Total 0 950 350 Balance 10 90 -225 Intake: Intake, IV Amount 10 1040 125 Left Hand 10 1040 125 Right Antecubital 0 Oral 0 0 0 Output: Urine 0 950 350 Urethral (Bose) 0 950 350 Stool 0 0 Other: Voiding Method Indwelling Catheter - Physical Exam Physical Exam Limitations: Positive for: Altered Mental Status Head: Positive for: Atraumatic, Normocephalic Pupils: Positive for: PERRL Mouth: Positive for: Moist Mucous Membranes Respiratory/Chest: Positive for: Clear to Auscultation, Good Air Exchange Cardiovascular: Positive for: Regular Rate and Rhythm Abdomen: Positive for: Normal Bowel Sounds. Negative for: Tenderness, Distention Psychiatric: Positive for: Alert Other physical findings (Free Text): not following commands. Making some purposeful movements. - Medications Active Medications: Active Medications Generic Name Dose Route Start Last Admin Trade Name Freq PRN Reason Stop Dose Admin Digoxin 0.125 mg 03/17/17 18:00 Lanoxin IVP Q24H EMILIE Famotidine 20 mg 03/17/17 10:00 03/17/17 09:49 Pepcid IVP 20 mg DAILY EMILIE Administration Diltiazem HCl 125 mg/ Sodium 125 mls @ 10 mls/hr 03/16/17 21:03 03/16/17 21: 07 Chloride IV 10 mls/hr .[id number] EMILIE Administration 10 MG/HR Potassium Chloride 10 meq/ 1,005 mls @ 125 mls/hr 03/17/17 01:45 03/17/17 04: 30 Sodium Chloride IV 125 mls/hr .Q8H3M EMILIE Administration - Patient Studies Lab Studies: Lab Studies 03/17/17 03/17/17 03/17/17 Range/Units 11:45 07:26 06:06 WBC (4.8-10.8) K/uL RBC (3.80-5.20) Mil/uL Hgb (11.0-16.0) g/dL Hct (34.0-47.0) % MCV (81.0-99.0) fL MCH (27.0-31.0) pg MCHC (33.0-37.0) g/dL RDW (11.5-14.5) % Plt Count (130-400) K/uL MPV (7.2-11.7) fL Neut % (Auto) (50.0-75.0) % Lymph % (Auto) (20.0-40.0) % [place] % (Auto) (0.0-10.0) % Eos % (Auto) (0.0-4.0) % Baso % (Auto) (0.0-2.0) % Neut # (1.8-7.0) K/uL Lymph # (1.0-4.3) K/uL [place] # (0.0-0.8) K/uL Eos # (0.0-0.7) K/uL Baso # (0.0-0.2) K/uL Neutrophils % (Manual) (50-75) % Lymphocytes % (Manual) (20-40) % Monocytes % (Manual) (0-10) % Platelet Estimate (NORMAL) RBC Morphology PT (9.7-12.2) SECONDS INR APTT (21-34) SECONDS Sodium 138 (132-148) mmol/L Potassium 3.4 L (3.6-5.2) mmol/L Chloride 101 (98-107) mmol/L Carbon Dioxide 25 (22-30) mmol/L Anion Gap 15 (10-20) BUN 8 (7-17) mg/dL Creatinine 0.4 L (0.7-1.2) MG/DL Est GFR ( Amer) > 60 Est GFR (Non-Af Amer) > 60 POC Glucose (mg/dL) 100 112 H (65-110) mg/dL Random Glucose 115 H (65-105) mg/dL Calcium 8.5 L (8.6-10.4) mg/dl Total Bilirubin 1.2 (0.2-1.3) mg/dL AST 40 H (14-36) U/L ALT 36 (9-52) U/L Alkaline Phosphatase 79 (38-126) U/L Total Protein 6.7 (6.3-8.3) g/dL Albumin 3.9 (3.5-5.0) g/dL Globulin 2.7 (2.2-3.9) gm/dL Albumin/Globulin Ratio 1.4 (1.0-2.1) Digoxin (0.8-2.0) ng/mL Blood Type Antibody Screen 03/17/17 03/17/17 03/16/17 Range/Units 06:06 06:06 22:28 WBC 8.5 (4.8-10.8) K/uL RBC 4.65 (3.80-5.20) Mil/uL Hgb 13.8 (11.0-16.0) g/dL Hct 42.2 (34.0-47.0) % MCV 90.7 (81.0-99.0) fL MCH 29.7 (27.0-31.0) pg MCHC 32.8 L (33.0-37.0) g/dL RDW 13.5 (11.5-14.5) % Plt Count 276 (130-400) K/uL MPV 6.6 L (7.2-11.7) fL Neut % (Auto) 88.4 H (50.0-75.0) % Lymph % (Auto) 6.3 L (20.0-40.0) % [place] % (Auto) 3.9 (0.0-10.0) % Eos % (Auto) 0.1 (0.0-4.0) % Baso % (Auto) 1.3 (0.0-2.0) % Neut # 7.5 H (1.8-7.0) K/uL Lymph # 0.5 L (1.0-4.3) K/uL [place] # 0.3 (0.0-0.8) K/uL Eos # 0.0 (0.0-0.7) K/uL Baso # 0.1 (0.0-0.2) K/uL Neutrophils % (Manual) 91 H (50-75) % Lymphocytes % (Manual) 7 L (20-40) % Monocytes % (Manual) 2 (0-10) % Platelet Estimate Normal (NORMAL) RBC Morphology Normal PT 14.1 H (9.7-12.2) SECONDS INR 1.3 APTT 31 (21-34) SECONDS Sodium (132-148) mmol/L Potassium (3.6-5.2) mmol/L Chloride (98-107) mmol/L Carbon Dioxide (22-30) mmol/L Anion Gap (10-20) BUN (7-17) mg/dL Creatinine (0.7-1.2) MG/DL Est GFR ( Amer) Est GFR (Non-Af Amer) POC Glucose (mg/dL) 131 H (65-110) mg/dL Random Glucose (65-105) mg/dL Calcium (8.6-10.4) mg/dl Total Bilirubin (0.2-1.3) mg/dL AST (14-36) U/L ALT (9-52) U/L Alkaline Phosphatase (38-126) U/L Total Protein (6.3-8.3) g/dL Albumin (3.5-5.0) g/dL Globulin (2.2-3.9) gm/dL Albumin/Globulin Ratio (1.0-2.1) Digoxin (0.8-2.0) ng/mL Blood Type Antibody Screen 03/16/17 03/16/17 Range/Units 21:02 19:28 WBC (4.8-10.8) K/uL RBC (3.80-5.20) Mil/uL Hgb (11.0-16.0) g/dL Hct (34.0-47.0) % MCV (81.0-99.0) fL MCH (27.0-31.0) pg MCHC (33.0-37.0) g/dL RDW (11.5-14.5) % Plt Count (130-400) K/uL MPV (7.2-11.7) fL Neut % (Auto) (50.0-75.0) % Lymph % (Auto) (20.0-40.0) % [place] % (Auto) (0.0-10.0) % Eos % (Auto) (0.0-4.0) % Baso % (Auto) (0.0-2.0) % Neut # (1.8-7.0) K/uL Lymph # (1.0-4.3) K/uL [place] # (0.0-0.8) K/uL Eos # (0.0-0.7) K/uL Baso # (0.0-0.2) K/uL Neutrophils % (Manual) (50-75) % Lymphocytes % (Manual) (20-40) % Monocytes % (Manual) (0-10) % Platelet Estimate (NORMAL) RBC Morphology PT (9.7-12.2) SECONDS INR APTT (21-34) SECONDS Sodium (132-148) mmol/L Potassium (3.6-5.2) mmol/L Chloride (98-107) mmol/L Carbon Dioxide (22-30) mmol/L Anion Gap (10-20) BUN (7-17) mg/dL Creatinine (0.7-1.2) MG/DL Est GFR ( Amer) Est GFR (Non-Af Amer) POC Glucose (mg/dL) (65-110) mg/dL Random Glucose (65-105) mg/dL Calcium (8.6-10.4) mg/dl Total Bilirubin (0.2-1.3) mg/dL AST (14-36) U/L ALT (9-52) U/L Alkaline Phosphatase (38-126) U/L Total Protein (6.3-8.3) g/dL Albumin (3.5-5.0) g/dL Globulin (2.2-3.9) gm/dL Albumin/Globulin Ratio (1.0-2.1) Digoxin < 0.4 L (0.8-2.0) ng/mL Blood Type B NEGATIVE Antibody Screen Negative Laboratory Results - last 24 hr 03/16/17 03/16/17 03/16/17 19:28 21:02 22:28 WBC RBC Hgb Hct MCV MCH MCHC RDW Plt Count MPV Neut % (Auto) Lymph % (Auto) [place] % (Auto) Eos % (Auto) Baso % (Auto) Neut # Lymph # [place] # Eos # Baso # Neutrophils % (Manual) Lymphocytes % (Manual) Monocytes % (Manual) Platelet Estimate RBC Morphology PT INR APTT Sodium Potassium Chloride Carbon Dioxide Anion Gap BUN Creatinine Est GFR ( Amer) Est GFR (Non-Af Amer) POC Glucose (mg/dL) 131 H Random Glucose Calcium Total Bilirubin AST ALT Alkaline Phosphatase Total Protein Albumin Globulin Albumin/Globulin Ratio Digoxin < 0.4 L Blood Type B NEGATIVE Antibody Screen Negative 03/17/17 03/17/17 03/17/17 06:06 06:06 06:06 WBC 8.5 RBC 4.65 Hgb 13.8 Hct 42.2 MCV 90.7 MCH 29.7 MCHC 32.8 L RDW 13.5 Plt Count 276 MPV 6.6 L Neut % (Auto) 88.4 H Lymph % (Auto) 6.3 L [place] % (Auto) 3.9 Eos % (Auto) 0.1 Baso % (Auto) 1.3 Neut # 7.5 H Lymph # 0.5 L [place] # 0.3 Eos # 0.0 Baso # 0.1 Neutrophils % (Manual) 91 H Lymphocytes % (Manual) 7 L Monocytes % (Manual) 2 Platelet Estimate Normal RBC Morphology Normal PT 14.1 H INR 1.3 APTT 31 Sodium 138 Potassium 3.4 L Chloride 101 Carbon Dioxide 25 Anion Gap 15 BUN 8 Creatinine 0.4 L Est GFR ( Amer) > 60 Est GFR (Non-Af Amer) > 60 POC Glucose (mg/dL) Random Glucose 115 H Calcium 8.5 L Total Bilirubin 1.2 AST 40 H ALT 36 Alkaline Phosphatase 79 Total Protein 6.7 Albumin 3.9 Globulin 2.7 Albumin/Globulin Ratio 1.4 Digoxin Blood Type Antibody Screen 03/17/17 03/17/17 07:26 11:45 WBC RBC Hgb Hct MCV MCH MCHC RDW Plt Count MPV Neut % (Auto) Lymph % (Auto) [place] % (Auto) Eos % (Auto) Baso % (Auto) Neut # Lymph # [place] # Eos # Baso # Neutrophils % (Manual) Lymphocytes % (Manual) Monocytes % (Manual) Platelet Estimate RBC Morphology PT INR APTT Sodium Potassium Chloride Carbon Dioxide Anion Gap BUN Creatinine Est GFR ( Amer) Est GFR (Non-Af Amer) POC Glucose (mg/dL) 112 H 100 Random Glucose Calcium Total Bilirubin AST ALT Alkaline Phosphatase Total Protein Albumin Globulin Albumin/Globulin Ratio Digoxin Blood Type Antibody Screen EKG/Cardiology Studies: Cardiology / EKG Studies 03/16/17 22:30 ELECTROCARDIOGRAM DAILY Comment: Mode Of Transportation: PORTABLE Reason For Exam: a-fib Fingerstick Blood Sugar Results: 79 Review of Systems - Review of Systems Systems not reviewed;Unavailable: Altered Mental Status Assessment/Plan (1) Intracranial bleed Assessment and plan: 81 yo female with hx A-fib, HTN, HLD, DVT, COPD, Osteoporosis, L hip ORIF. presented to ED after family noted altered MS and Right facial droop this afternoon. Pt recently had epistaxis and rectal bleed and coumadin was d/c'd x 1 week. Pt speech is incomprehensible and unable to give hx. In ED pt in rapid A -fib treated with cardizem and metoprolol. Rate controlled on monitor when seen in ED. CT showed large left temporal bleed and Neurosurgery said no intervention. Neuro: Altered mental status secondary to intracerebral hemorrhage. Repeat head CT shows enlarging temporal bleed with edema and slight midline shift. Neurosurgery consult to, do not feel patient is a good candidate for any kind of surgical intervention. Currently using medical treatment with blood pressure control. Pulm: No acute issues, maintaining airway, breathing spontaneously on nasal cannula oxygen. CV: Hemodynamically stable, no need for antihypertensive medications currently. Hem: No coagulopathy, patient was off of Coumadin for 1 week. Renal: No acute issues, urine output within normal limits. Endo: No acute issues GI: Nothing by mouth with altered mental status. ID: No acute issues, patient is high risk for aspiration. DVT proph - no anticoagulation with current bleed, SCDs GI proph - Protonix bose for strict I/O's during acute illness Code status - DNR/DNI Crtical Care Time spent 35 minutes Multi-disciplinary rounds were performed with house staff, nursing, speech therapy, respiratory therapy, pharmacy and nutrition with integrated input from the primary team/attending and other consulting services. The documented time is cumulative and includes review of patient data/exams/labs/chart review and examination of the patient on rounds and throughout the day; time is exclusive of any procedures or teaching time. Current Visit: Yes Status: Acute
[2017-03-17] MEDS: niCARdipine IV 25 MG in Sodium Chloride 0.9% 240 ML IV SCH ×3 (14:44→21:37)
--- NOTE | 2017-03-17 17:01 | CP.PCM.PN ---
Subjective - Date & Time of Evaluation Date of Evaluation: 03/17/17 Time of Evaluation: 04:30 - Subjective Subjective: Patient see- in ICU bed- yue Heck by bedside- Patient was noted to be moving around in bed, with spontaneous movement of left side EU LE but not the right side, patient open eys to my call, utter some words but not understandable. there no active bleeding. Daughter aware of condition, other sister had discussion with neuro and neurosurgeon Objective - Vital Signs/Intake and Output Vital Signs (last 24 hours): Temp Pulse Resp BP Pulse Ox 99.1 F 86 21 131/77 96 03/17/17 16:00 03/17/17 16:00 03/17/17 16:00 03/17/17 16:00 03/17/17 16:00 Intake and Output: 03/17/17 03/17/17 06:59 18:59 Intake Total 1050 1350 Output Total 950 815 Balance 100 535 - Medications Medications: Current Medications Digoxin (Lanoxin) 0.125 mg IVP Q24H EMILIE Famotidine (Pepcid) 20 mg IVP DAILY EMILIE Last Admin: 03/17/17 09:49 Dose: 20 mg Diltiazem HCl 125 mg/ Sodium (Chloride) 125 mls @ 10 mls/hr IV .[id number] EMILIE PRN Reason: 10 MG/HR Last Admin: 03/16/17 21:07 Dose: 10 mls/hr Potassium Chloride 10 meq/ (Sodium Chloride) 1,005 mls @ 125 mls/hr IV .Q8H3M EMILIE Last Admin: 03/17/17 13:24 Dose: 125 mls/hr Nicardipine HCl 25 mg/ Sodium (Chloride) 250 mls @ 50 mls/hr IV .Q5H EMILIE; 5 MG/ HR PRN Reason: Protocol Last Admin: 03/17/17 14:44 Dose: 5 mg/hr, 50 mls/hr - Labs Labs: 03/17/17 06:06 03/17/17 06:06 PT 14.1 SECONDS (9.7-12.2) H 03/17/17 06:06 INR 1.3 03/17/17 06:06 APTT 31 SECONDS (21-34) 03/17/17 06:06 - Constitutional Appears: Other (alterd consiousness , opens eyes to call, but confused,) - Head Exam Head Exam: ATRAUMATIC, NORMOCEPHALIC - Eye Exam Eye Exam: Normal appearance. absent: Nystagmus - ENT Exam ENT Exam: Mucous Membranes Moist - Neck Exam Neck Exam: Full ROM - Respiratory Exam Respiratory Exam: Clear to Ausculation Bilateral, NORMAL BREATHING PATTERN - Cardiovascular Exam Cardiovascular Exam: Irregular Rhythm - GI/Abdominal Exam GI & Abdominal Exam: Soft, Normal Bowel Sounds - Extremities Exam Extremities Exam: absent: Joint Swelling, Pedal Edema - Back Exam Back Exam: absent: rash noted - Neurological Exam Neurological Exam: Altered Neuro motor strength exam: Left Upper Extremity: 5 (as observed by spontaneous movement ), Right Upper Extremity: 0 (limp ), Left Lower Extremity: 5 (as observed by spontaneous movement ), Right Lower Extremity: 0 (limp) - Skin Skin Exam: Intact, Normal Color Assessment and Plan - Assessment and Plan (Free Text) Assessment: Patient with hemorrhagic stroke , with repeat CT scan of with increased side left temporal and parietal hematoma with marked increased mass effect with compression of the left lateral ventricle patient has poor prognosis by history patient wishes DNR/DNI family is aware of condition and plan Supportive care
[2017-03-17] MEDS: Digoxin 500 mcg/2ml (0.5 mg/2ml) Inj IVP SCH (17:22)
--- NOTE | 2017-03-18 06:37 | CP.PCM.CON ---
History of Present Illness - History of Present Illness History of Present Illness: Patient seen and evaluated Admitted with Hemorhagic stroke H/O A Fib and HTN Poor prognosis Patient currently DNR/DNI Past Patient History - Infectious Disease Hx of Infectious Diseases: None - Past Medical History & Family History Past Medical History?: Yes - Past Social History Smoking Status: Former Smoker - CARDIAC Hx Atrial Fibrillation: Yes Hx Cardia Arrhythmia: Yes (A-FIB) Hx Hypercholesterolemia: Yes Hx Hypertension: Yes - PULMONARY Hx Asthma: Yes Hx Chronic Obstructive Pulmonary Disease (COPD): Yes - NEUROLOGICAL Hx Neurological Disorder: No HX Cerebrovascular Accident: Yes (01/2015) - HEENT Hx HEENT Problems: No Hx Cataracts: Yes (Rock Lens Implant) - RENAL Hx Chronic Kidney Disease: No - ENDOCRINE/METABOLIC Hx Endocrine Disorders: No - HEMATOLOGICAL/ONCOLOGICAL Hx Blood Disorders: No - INTEGUMENTARY Hx Dermatological Problems: No - MUSCULOSKELETAL/RHEUMATOLOGICAL Hx Arthritis: Yes Hx Fractures: Yes (L Hip ORIF 2013) Hx Osteoporosis: Yes - GASTROINTESTINAL Hx Gastrointestinal Disorders: No Other/Comment: DENIES ANY RECTAL BLEEDING OR ANY SYMPTOMS - GENITOURINARY/GYNECOLOGICAL Hx Genitourinary Disorders: Yes Hx Incontinence: Yes - PSYCHIATRIC Hx Substance Use: No - SURGICAL HISTORY Hx Surgeries: Yes Hx Cataract Extraction: Yes Hx Eye Surgery: Yes (CATARACTS) Hx Hysterectomy: Yes (1979) Hx Open Reduction Internal Fixation: Yes (LEFT HIP REPLACEMENT WITH RODS) Hx Orthopedic Surgery: Yes (L Hip ORIF) Other/Comment: Rock retinal surgery done 2x - ANESTHESIA Hx Anesthesia: Yes Hx Anesthesia Reactions: No Hx Malignant Hyperthermia: No Meds Allergies/Adverse Reactions: Allergies Allergy/AdvReac Type Severity Reaction Status Date / Time azithromycin [From Zithromax] Allergy Verified 03/16/17 18:12 iodine Allergy Verified 03/16/17 18:12 Penicillins Allergy Verified 03/16/17 18:12 Sulfa (Sulfonamide Allergy Verified 03/16/17 18:12 Antibiotics) seafood Allergy Uncoded 03/16/17 18:12 - Medications Medications: Current Medications Digoxin (Lanoxin) 0.125 mg IVP Q24H [facility] Last Admin: 03/17/17 17:22 Dose: 0.125 mg Famotidine (Pepcid) 20 mg IVP DAILY [facility] Last Admin: 03/17/17 09:49 Dose: 20 mg Potassium Chloride 10 meq/ (Sodium Chloride) 1,005 mls @ 125 mls/hr IV .Q8H3M EMILIE Last Admin: 03/18/17 05:19 Dose: 125 mls/hr Results - Vital Signs Recent Vital Signs: Last Vital Signs Temp 98.7 F 03/18/17 04:00 Pulse 74 03/18/17 06:00 Resp 18 03/18/17 06:00 BP 126/67 03/18/17 06:00 Pulse Ox 100 03/18/17 06:00 - Labs Result Diagrams: 03/17/17 06:06 03/17/17 06:06 Labs: Laboratory Results - last 24 hr 03/17/17 03/17/17 03/17/17 06:06 07:26 11:45 Neutrophils % (Manual) 91 H Lymphocytes % (Manual) 7 L Monocytes % (Manual) 2 Platelet Estimate Normal RBC Morphology Normal POC Glucose (mg/dL) 112 H 100 03/17/17 03/17/17 16:20 21:05 Neutrophils % (Manual) Lymphocytes % (Manual) Monocytes % (Manual) Platelet Estimate RBC Morphology POC Glucose (mg/dL) 116 H 127 H
[2017-03-18 06:57] LABS: BASO % 0.2 % (0.0-2.0); HEMATOCRIT 41.4 % (34.0-47.0); LYMPH # 0.7 K/uL (1.0-4.3); LYMPH % 5.8 % (20.0-40.0); MEAN CELL VOLUME 90.1 fL (81.0-99.0); MEAN CORPUSCULAR HEMOGLOBIN 29.6 pg (27.0-31.0); MEAN CORPUSCULAR HGB CONC 32.8 g/dL (33.0-37.0); MEAN PLATELET VOLUME 6.9 fL (7.2-11.7); MONO # 0.9 K/uL (0.0-0.8); MONO % 8.2 % (0.0-10.0); PLATELET COUNT 288 K/uL (130-400); RED CELL DISTRIBUTION WIDTH 13.4 % (11.5-14.5); WHITE BLOOD COUNT 11.5 K/uL (4.8-10.8)
[2017-03-18 07:10] LABS: CHLORIDE 101 mmol/L (98-107); POTASSIUM 3.2 mmol/L (3.6-5.2); SODIUM 137 mmol/L (132-148)
[2017-03-18 07:12] LABS: ALB/GLOB RATIO 1.4 (1.0-2.1); ALKALINE PHOSPHATASE 70 U/L (38-126); ALT/SGPT 31 U/L (9-52); AST/SGOT 43 U/L (14-36); BILIRUBIN,TOTAL 1.2 mg/dL (0.2-1.3); BLOOD UREA NITROGEN 8 mg/dL (7-17); CARBON DIOXIDE 24 mmol/L (22-30); GFR AFRICAN-AMERICAN > 60; TOTAL PROTEIN 6.3 g/dL (6.3-8.3)
[2017-03-18 07:13] LABS: CALCIUM 8.2 mg/dl (8.6-10.4); GLUCOSE,RANDOM 102 mg/dL (65-105)
[2017-03-18 08:53] LABS: NEUTROPHIL 91 % (50-75); TOTAL CELLS COUNTED 100
[2017-03-18] MEDS ORDERED: Potassium Chloride 20 mEq/15 ml LIQ UD PO ONE (09:15)
[2017-03-18] MEDS ORDERED: (Novolog) Insulin Aspart, Recombinant 100 u/ml 10 ml vial SC SCH ×2 (09:15→12:00)
[2017-03-18 10:18] LABS: RBC URINE 331 /hpf (0-3); URINE BACTERIA OCC (<OCC); URINE BILIRUBIN NEGATIVE (NEGATIVE); URINE BLOOD 3+ (NEGATIVE); URINE COLOR Yellow (YELLOW); URINE GLUCOSE (UA) NORMAL (Normal); URINE KETONE 1+ mg/dL (NEGATIVE); URINE LEUKOCYTE ESTERASE 1+ Leu/uL (Negative); URINE PROTEIN NEGATIVE (NEGATIVE); URINE UROBILINOGEN NORMAL mg/dL (0.2-1.0); WBC URINE 30 /hpf (0-5)
--- NOTE | 2017-03-18 11:04 | CP.PCM.PN ---
Subjective - Date & Time of Evaluation Date of Evaluation: 03/18/17 Time of Evaluation: 11:00 - Subjective Subjective: opens eyes to voice attempts to state name no command follwing L gaze pref actually improved will withdraw rue and le CT yest showed inc size hematoma still mild shift no comprimise of perimesencephalic cistern pt made dnr by family stable rec cont medical care Objective - Vital Signs/Intake and Output Vital Signs (last 24 hours): Temp Pulse Resp BP Pulse Ox 97.8 F 73 18 129/56 L 96 03/18/17 08:00 03/18/17 08:00 03/18/17 08:00 03/18/17 08:00 03/18/17 08:00 Intake and Output: 03/18/17 03/18/17 06:59 18:59 Intake Total 1900 375 Output Total 1260 275 Balance 640 100 - Medications Medications: Current Medications Digoxin (Lanoxin) 0.125 mg IVP Q24H [facility] Last Admin: 03/17/17 17:22 Dose: 0.125 mg Famotidine (Pepcid) 20 mg IVP DAILY [facility] Last Admin: 03/18/17 09:56 Dose: 20 mg Potassium Chloride 10 meq/ (Sodium Chloride) 1,005 mls @ 60 mls/hr IV .[id number] [facility] Insulin Aspart (Novolog) 0 unit SC Q6H [facility] PRN Reason: Protocol - Labs Labs: 03/18/17 06:53 03/18/17 06:53 PT 14.1 SECONDS (9.7-12.2) H 03/17/17 06:06 INR 1.3 03/17/17 06:06 APTT 31 SECONDS (21-34) 03/17/17 06:06
--- NOTE | 2017-03-18 12:27 | CP.PCM.PN ---
Subjective - Date & Time of Evaluation Date of Evaluation: 03/18/17 Time of Evaluation: 00:00 - Subjective Subjective: Patient seen. 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 Objective - Vital Signs/Intake and Output Vital Signs (last 24 hours): Temp Pulse Resp BP Pulse Ox 97.8 F 76 19 142/88 98 03/18/17 08:00 03/18/17 11:00 03/18/17 11:00 03/18/17 11:00 03/18/17 11:00 Intake and Output: 03/18/17 03/18/17 06:59 18:59 Intake Total 1900 375 Output Total 1260 275 Balance 640 100 - Medications Medications: Current Medications Digoxin (Lanoxin) 0.125 mg IVP Q24H [facility] Last Admin: 03/17/17 17:22 Dose: 0.125 mg Famotidine (Pepcid) 20 mg IVP DAILY [facility] Last Admin: 03/18/17 09:56 Dose: 20 mg Potassium Chloride 10 meq/ (Sodium Chloride) 1,005 mls @ 60 mls/hr IV .[id number] [facility] Insulin Aspart (Novolog) 0 unit SC Q6 [facility] PRN Reason: Protocol Last Admin: 03/18/17 12:15 Dose: Not Given - Labs Labs: 03/18/17 06:53 03/18/17 06:53 PT 14.1 SECONDS (9.7-12.2) H 03/17/17 06:06 INR 1.3 03/17/17 06:06 APTT 31 SECONDS (21-34) 03/17/17 06:06 - Constitutional Appears: Other ( with response to call, mumbles,,) - Head Exam Head Exam: ATRAUMATIC, NORMOCEPHALIC - Eye Exam Eye Exam: absent: Nystagmus - ENT Exam ENT Exam: Mucous Membranes Moist - Respiratory Exam Respiratory Exam: Clear to Ausculation Bilateral, NORMAL BREATHING PATTERN - Cardiovascular Exam Cardiovascular Exam: Irregular Rhythm - GI/Abdominal Exam GI & Abdominal Exam: Soft. absent: Distended - Extremities Exam Extremities Exam: absent: Joint Swelling, Pedal Edema - Neurological Exam Neurological Exam: Altered Assessment and Plan - Assessment and Plan (Free Text) Assessment: Patient with HYpertension history of TIA more than 10 years ago, with AFIB- despite off coumadin- had Intracerebral bleed/hematoma, that worsened, with altered consciousness, discussion with family and staff supportive care
--- NOTE | 2017-03-18 13:21 | CP.CCUPN ---
CCU Subjective - Physician Review Events Since Last Encounter (Free Text): 03/18/17 13:18 Patient is more alert today, following commands. CCU Objective - Vital Signs / Intake & Output Vital Signs (Last 4 hours): Vital Signs Pulse Resp BP Pulse Ox 03/18/17 11:00 76 19 142/88 98 03/18/17 10:00 83 20 138/93 H 95 Intake and Output (Last 8hrs): Intake & Output 03/17/17 03/18/17 03/18/17 22:59 06:59 14:59 Intake Total 1600 1000 375 Output Total 655 875 275 Balance 945 125 100 Weight 125 lb 6 oz Intake: IV 250 Intake, IV Amount 1350 1000 375 Left Hand 500 Lt hand #2 200 Right Antecubital 500 1000 125 Right Hand 250 Rt AC #2 150 0 Output: Urine 655 875 275 Urethral (Bose) 655 875 275 - Physical Exam Head: Positive for: Atraumatic, Normocephalic Pupils: Positive for: PERRL Mouth: Positive for: Moist Mucous Membranes Respiratory/Chest: Positive for: Clear to Auscultation, Good Air Exchange Cardiovascular: Positive for: Regular Rate and Rhythm Abdomen: Positive for: Normal Bowel Sounds. Negative for: Tenderness, Distention Neurological: Positive for: Other (right sided hemiparesis) Psychiatric: Positive for: Alert - Medications Active Medications: Active Medications Generic Name Dose Route Start Last Admin Trade Name Freq PRN Reason Stop Dose Admin Digoxin 0.125 mg 03/17/17 18:00 03/17/17 17:22 Lanoxin IVP 0.125 mg Q24H [facility] Administration Famotidine 20 mg 03/17/17 10:00 03/18/17 09:56 Pepcid IVP 20 mg DAILY [facility] Administration Potassium Chloride 10 meq/ 1,005 mls @ 60 mls/hr 03/18/17 09:11 Sodium Chloride IV .[id number] [facility] Insulin Aspart 0 unit 03/18/17 12:00 03/18/17 12:15 Novolog SC Not Given Q6 [facility] Protocol - Patient Studies Lab Studies: Lab Studies 03/18/17 03/18/17 03/18/17 Range/Units 11:42 09:59 07:22 WBC (4.8-10.8) K/uL RBC (3.80-5.20) Mil/uL Hgb (11.0-16.0) g/dL Hct (34.0-47.0) % MCV (81.0-99.0) fL MCH (27.0-31.0) pg MCHC (33.0-37.0) g/dL RDW (11.5-14.5) % Plt Count (130-400) K/uL MPV (7.2-11.7) fL Neut % (Auto) (50.0-75.0) % Lymph % (Auto) (20.0-40.0) % [place] % (Auto) (0.0-10.0) % Eos % (Auto) (0.0-4.0) % Baso % (Auto) (0.0-2.0) % Neut # (1.8-7.0) K/uL Lymph # (1.0-4.3) K/uL [place] # (0.0-0.8) K/uL Eos # (0.0-0.7) K/uL Baso # (0.0-0.2) K/uL Neutrophils % (Manual) (50-75) % Lymphocytes % (Manual) (20-40) % Monocytes % (Manual) (0-10) % Platelet Estimate (NORMAL) RBC Morphology Sodium (132-148) mmol/L Potassium (3.6-5.2) mmol/L Chloride (98-107) mmol/L Carbon Dioxide (22-30) mmol/L Anion Gap (10-20) BUN (7-17) mg/dL Creatinine (0.7-1.2) MG/DL Est GFR ( Amer) Est GFR (Non-Af Amer) POC Glucose (mg/dL) 113 H 111 H (65-110) mg/dL Random Glucose (65-105) mg/dL Calcium (8.6-10.4) mg/dl Total Bilirubin (0.2-1.3) mg/dL AST (14-36) U/L ALT (9-52) U/L Alkaline Phosphatase (38-126) U/L Total Protein (6.3-8.3) g/dL Albumin (3.5-5.0) g/dL Globulin (2.2-3.9) gm/dL Albumin/Globulin Ratio (1.0-2.1) Urine Color Yellow (YELLOW) Urine Clarity Hazy (Clear) Urine pH 6.0 (5.0-8.0) Ur Specific [place] 1.010 (1.003-1.030) Urine Protein Negative (NEGATIVE) mg/dL Urine Glucose (UA) Normal (Normal) mg/dL Urine Ketones 1+ H (NEGATIVE) mg/dL Urine Blood 3+ H (NEGATIVE) Urine Nitrate Negative (NEGATIVE) Urine Bilirubin Negative (NEGATIVE) Urine Urobilinogen Normal (0.2-1.0) mg/dL Ur Leukocyte Esterase 1+ H (Negative) [place]/uL Urine WBC (Auto) 30 H (0-5) /hpf Urine RBC (Auto) 331 H (0-3) /hpf Ur Squamous Epith Cells < 1 (0-5) /hpf Amorphous Sediment Rare H (<OCC) /ul Urine Bacteria Occ H (<OCC) 03/18/17 03/18/17 03/17/17 Range/Units 06:53 06:53 21:05 WBC 11.5 H (4.8-10.8) K/uL RBC 4.59 (3.80-5.20) Mil/uL Hgb 13.6 (11.0-16.0) g/dL Hct 41.4 (34.0-47.0) % MCV 90.1 (81.0-99.0) fL MCH 29.6 (27.0-31.0) pg MCHC 32.8 L (33.0-37.0) g/dL RDW 13.4 (11.5-14.5) % Plt Count 288 (130-400) K/uL MPV 6.9 L (7.2-11.7) fL Neut % (Auto) 85.8 H (50.0-75.0) % Lymph % (Auto) 5.8 L (20.0-40.0) % [place] % (Auto) 8.2 (0.0-10.0) % Eos % (Auto) 0.0 (0.0-4.0) % Baso % (Auto) 0.2 (0.0-2.0) % Neut # 9.9 H (1.8-7.0) K/uL Lymph # 0.7 L (1.0-4.3) K/uL [place] # 0.9 H (0.0-0.8) K/uL Eos # 0.0 (0.0-0.7) K/uL Baso # 0.0 (0.0-0.2) K/uL Neutrophils % (Manual) 91 H (50-75) % Lymphocytes % (Manual) 7 L (20-40) % Monocytes % (Manual) 2 (0-10) % Platelet Estimate Normal (NORMAL) RBC Morphology Normal Sodium 137 (132-148) mmol/L Potassium 3.2 L (3.6-5.2) mmol/L Chloride 101 (98-107) mmol/L Carbon Dioxide 24 (22-30) mmol/L Anion Gap 15 (10-20) BUN 8 (7-17) mg/dL Creatinine 0.4 L (0.7-1.2) MG/DL Est GFR ( Amer) > 60 Est GFR (Non-Af Amer) > 60 POC Glucose (mg/dL) 127 H (65-110) mg/dL Random Glucose 102 (65-105) mg/dL Calcium 8.2 L (8.6-10.4) mg/dl Total Bilirubin 1.2 (0.2-1.3) mg/dL AST 43 H (14-36) U/L ALT 31 (9-52) U/L Alkaline Phosphatase 70 (38-126) U/L Total Protein 6.3 (6.3-8.3) g/dL Albumin 3.7 (3.5-5.0) g/dL Globulin 2.6 (2.2-3.9) gm/dL Albumin/Globulin Ratio 1.4 (1.0-2.1) Urine Color (YELLOW) Urine Clarity (Clear) Urine pH (5.0-8.0) Ur Specific [place] (1.003-1.030) Urine Protein (NEGATIVE) mg/dL Urine Glucose (UA) (Normal) mg/dL Urine Ketones (NEGATIVE) mg/dL Urine Blood (NEGATIVE) Urine Nitrate (NEGATIVE) Urine Bilirubin (NEGATIVE) Urine Urobilinogen (0.2-1.0) mg/dL Ur Leukocyte Esterase (Negative) [place]/uL Urine WBC (Auto) (0-5) /hpf Urine RBC (Auto) (0-3) /hpf Ur Squamous Epith Cells (0-5) /hpf Amorphous Sediment (<OCC) /ul Urine Bacteria (<OCC) 03/17/17 Range/Units 16:20 WBC (4.8-10.8) K/uL RBC (3.80-5.20) Mil/uL Hgb (11.0-16.0) g/dL Hct (34.0-47.0) % MCV (81.0-99.0) fL MCH (27.0-31.0) pg MCHC (33.0-37.0) g/dL RDW (11.5-14.5) % Plt Count (130-400) K/uL MPV (7.2-11.7) fL Neut % (Auto) (50.0-75.0) % Lymph % (Auto) (20.0-40.0) % [place] % (Auto) (0.0-10.0) % Eos % (Auto) (0.0-4.0) % Baso % (Auto) (0.0-2.0) % Neut # (1.8-7.0) K/uL Lymph # (1.0-4.3) K/uL [place] # (0.0-0.8) K/uL Eos # (0.0-0.7) K/uL Baso # (0.0-0.2) K/uL Neutrophils % (Manual) (50-75) % Lymphocytes % (Manual) (20-40) % Monocytes % (Manual) (0-10) % Platelet Estimate (NORMAL) RBC Morphology Sodium (132-148) mmol/L Potassium (3.6-5.2) mmol/L Chloride (98-107) mmol/L Carbon Dioxide (22-30) mmol/L Anion Gap (10-20) BUN (7-17) mg/dL Creatinine (0.7-1.2) MG/DL Est GFR ( Amer) Est GFR (Non-Af Amer) POC Glucose (mg/dL) 116 H (65-110) mg/dL Random Glucose (65-105) mg/dL Calcium (8.6-10.4) mg/dl Total Bilirubin (0.2-1.3) mg/dL AST (14-36) U/L ALT (9-52) U/L Alkaline Phosphatase (38-126) U/L Total Protein (6.3-8.3) g/dL Albumin (3.5-5.0) g/dL Globulin (2.2-3.9) gm/dL Albumin/Globulin Ratio (1.0-2.1) Urine Color (YELLOW) Urine Clarity (Clear) Urine pH (5.0-8.0) Ur Specific [place] (1.003-1.030) Urine Protein (NEGATIVE) mg/dL Urine Glucose (UA) (Normal) mg/dL Urine Ketones (NEGATIVE) mg/dL Urine Blood (NEGATIVE) Urine Nitrate (NEGATIVE) Urine Bilirubin (NEGATIVE) Urine Urobilinogen (0.2-1.0) mg/dL Ur Leukocyte Esterase (Negative) [place]/uL Urine WBC (Auto) (0-5) /hpf Urine RBC (Auto) (0-3) /hpf Ur Squamous Epith Cells (0-5) /hpf Amorphous Sediment (<OCC) /ul Urine Bacteria (<OCC) Laboratory Results - last 24 hr 03/17/17 03/17/17 03/18/17 16:20 21:05 06:53 WBC 11.5 H RBC 4.59 Hgb 13.6 Hct 41.4 MCV 90.1 MCH 29.6 MCHC 32.8 L RDW 13.4 Plt Count 288 MPV 6.9 L Neut % (Auto) 85.8 H Lymph % (Auto) 5.8 L [place] % (Auto) 8.2 Eos % (Auto) 0.0 Baso % (Auto) 0.2 Neut # 9.9 H Lymph # 0.7 L [place] # 0.9 H Eos # 0.0 Baso # 0.0 Neutrophils % (Manual) 91 H Lymphocytes % (Manual) 7 L Monocytes % (Manual) 2 Platelet Estimate Normal RBC Morphology Normal Sodium Potassium Chloride Carbon Dioxide Anion Gap BUN Creatinine Est GFR ( Amer) Est GFR (Non-Af Amer) POC Glucose (mg/dL) 116 H 127 H Random Glucose Calcium Total Bilirubin AST ALT Alkaline Phosphatase Total Protein Albumin Globulin Albumin/Globulin Ratio Urine Color Urine Clarity Urine pH Ur Specific [place] Urine Protein Urine Glucose (UA) Urine Ketones Urine Blood Urine Nitrate Urine Bilirubin Urine Urobilinogen Ur Leukocyte Esterase Urine WBC (Auto) Urine RBC (Auto) Ur Squamous Epith Cells Amorphous Sediment Urine Bacteria 03/18/17 03/18/17 03/18/17 06:53 07:22 09:59 WBC RBC Hgb Hct MCV MCH MCHC RDW Plt Count MPV Neut % (Auto) Lymph % (Auto) [place] % (Auto) Eos % (Auto) Baso % (Auto) Neut # Lymph # [place] # Eos # Baso # Neutrophils % (Manual) Lymphocytes % (Manual) Monocytes % (Manual) Platelet Estimate RBC Morphology Sodium 137 Potassium 3.2 L Chloride 101 Carbon Dioxide 24 Anion Gap 15 BUN 8 Creatinine 0.4 L Est GFR ( Amer) > 60 Est GFR (Non-Af Amer) > 60 POC Glucose (mg/dL) 111 H Random Glucose 102 Calcium 8.2 L Total Bilirubin 1.2 AST 43 H ALT 31 Alkaline Phosphatase 70 Total Protein 6.3 Albumin 3.7 Globulin 2.6 Albumin/Globulin Ratio 1.4 Urine Color Yellow Urine Clarity Hazy Urine pH 6.0 Ur Specific [place] 1.010 Urine Protein Negative Urine Glucose (UA) Normal Urine Ketones 1+ H Urine Blood 3+ H Urine Nitrate Negative Urine Bilirubin Negative Urine Urobilinogen Normal Ur Leukocyte Esterase 1+ H Urine WBC (Auto) 30 H Urine RBC (Auto) 331 H Ur Squamous Epith Cells < 1 Amorphous Sediment Rare H Urine Bacteria Occ H 03/18/17 11:42 WBC RBC Hgb Hct MCV MCH MCHC RDW Plt Count MPV Neut % (Auto) Lymph % (Auto) [place] % (Auto) Eos % (Auto) Baso % (Auto) Neut # Lymph # [place] # Eos # Baso # Neutrophils % (Manual) Lymphocytes % (Manual) Monocytes % (Manual) Platelet Estimate RBC Morphology Sodium Potassium Chloride Carbon Dioxide Anion Gap BUN Creatinine Est GFR ( Amer) Est GFR (Non-Af Amer) POC Glucose (mg/dL) 113 H Random Glucose Calcium Total Bilirubin AST ALT Alkaline Phosphatase Total Protein Albumin Globulin Albumin/Globulin Ratio Urine Color Urine Clarity Urine pH Ur Specific [place] Urine Protein Urine Glucose (UA) Urine Ketones Urine Blood Urine Nitrate Urine Bilirubin Urine Urobilinogen Ur Leukocyte Esterase Urine WBC (Auto) Urine RBC (Auto) Ur Squamous Epith Cells Amorphous Sediment Urine Bacteria Fingerstick Blood Sugar Results: 111 Review of Systems - Review of Systems Systems not reviewed;Unavailable: Altered Mental Status Assessment/Plan (1) Intracranial bleed Assessment and plan: 81 yo female with hx A-fib, HTN, HLD, DVT, COPD, Osteoporosis, L hip ORIF. presented to ED after family noted altered MS and Right facial droop this afternoon. Pt recently had epistaxis and rectal bleed and coumadin was d/c'd x 1 week. Pt speech is incomprehensible and unable to give hx. In ED pt in rapid A -fib treated with cardizem and metoprolol. Rate controlled on monitor when seen in ED. CT showed large left temporal bleed and Neurosurgery said no intervention. Neuro: Altered mental status secondary to intracerebral hemorrhage. Repeat head CT shows enlarging temporal bleed with edema and slight midline shift. Neurosurgery consult to, do not feel patient is a good candidate for any kind of surgical intervention. Currently using medical treatment with blood pressure control. Pulm: No acute issues, maintaining airway, breathing spontaneously on nasal cannula oxygen. CV: Hemodynamically stable, patient was intermittently on cardene drip for blood pressure control. Hem: No coagulopathy, patient was off of Coumadin for 1 week. Renal: No acute issues, urine output within normal limits. Endo: No acute issues GI: Nothing by mouth with altered mental status. drop NGT to start tube feeds, isosource@20, goal TBD. ID: No acute issues, patient is high risk for aspiration. DVT proph - no anticoagulation with current bleed, SCDs GI proph - Protonix bose for strict I/O's during acute illness Code status - DNR/DNI Crtical Care Time spent 35 minutes Multi-disciplinary rounds were performed with house staff, nursing, speech therapy, respiratory therapy, pharmacy and nutrition with integrated input from the primary team/attending and other consulting services. The documented time is cumulative and includes review of patient data/exams/labs/chart review and examination of the patient on rounds and throughout the day; time is exclusive of any procedures or teaching time. Current Visit: Yes Status: Acute
[2017-03-18] MEDS: Digoxin 500 mcg/2ml (0.5 mg/2ml) Inj IVP SCH (17:19)
[2017-03-19 06:50] LABS: CHLORIDE 99 mmol/L (98-107); POTASSIUM 3.3 mmol/L (3.6-5.2); SODIUM 135 mmol/L (132-148)
[2017-03-19 06:52] LABS: ALKALINE PHOSPHATASE 84 U/L (38-126); AST/SGOT 34 U/L (14-36); BILIRUBIN,TOTAL 0.9 mg/dL (0.2-1.3); CARBON DIOXIDE 27 mmol/L (22-30); GFR AFRICAN-AMERICAN > 60
[2017-03-19 06:53] LABS: ALB/GLOB RATIO 1.2 (1.0-2.1); ALT/SGPT 25 U/L (9-52); BLOOD UREA NITROGEN 12 mg/dL (7-17); GLUCOSE,RANDOM 140 mg/dL (65-105); TOTAL PROTEIN 6.6 g/dL (6.3-8.3)
[2017-03-19 06:54] LABS: CALCIUM 8.1 mg/dl (8.6-10.4)
[2017-03-19 06:55] LABS: BASO % 0.3 % (0.0-2.0); EOS % 0.1 % (0.0-4.0); HEMATOCRIT 44.2 % (34.0-47.0); LYMPH # 0.8 K/uL (1.0-4.3); LYMPH % 6.2 % (20.0-40.0); MEAN CELL VOLUME 88.4 fL (81.0-99.0); MEAN CORPUSCULAR HEMOGLOBIN 29.8 pg (27.0-31.0); MEAN CORPUSCULAR HGB CONC 33.7 g/dL (33.0-37.0); MONO # 1.5 K/uL (0.0-0.8); MONO % 11.8 % (0.0-10.0); NRBC % 0.1 % (0.0-2.0); PLATELET COUNT 335 K/uL (130-400); RED CELL DISTRIBUTION WIDTH 13.2 % (11.5-14.5); WHITE BLOOD COUNT 12.7 K/uL (4.8-10.8)
--- NOTE | 2017-03-19 08:51 | CP.PCM.PN ---
Subjective - Date & Time of Evaluation Date of Evaluation: 03/19/17 Time of Evaluation: 08:50 - Subjective Subjective: Patient seen- neurologically worsened, less active- will have repat CT scan today family aware of condition and plan signed DNR DNI Objective - Vital Signs/Intake and Output Vital Signs (last 24 hours): Temp Pulse Resp BP Pulse Ox 98.1 F 64 17 139/87 100 03/19/17 04:00 03/19/17 06:00 03/19/17 06:00 03/19/17 06:00 03/19/17 06:00 Intake and Output: 03/19/17 03/19/17 06:59 18:59 Intake Total 1140 Output Total 1900 Balance -760 - Medications Medications: Current Medications Acetaminophen (Tylenol 325mg Tab) 650 mg PO Q6 PRN PRN Reason: Fever >100.4 F Last Admin: 03/18/17 16:50 Dose: 650 mg Digoxin (Lanoxin) 0.125 mg IVP Q24H [facility] Last Admin: 03/18/17 17:19 Dose: 0.125 mg Famotidine (Pepcid) 20 mg IVP DAILY [facility] Last Admin: 03/18/17 09:56 Dose: 20 mg Potassium Chloride 20 meq/ (Sodium Chloride) 1,010 mls @ 60 mls/hr IV .[id number] [facility] - Labs Labs: 03/19/17 06:32 03/19/17 06:33 PT 14.1 SECONDS (9.7-12.2) H 03/17/17 06:06 INR 1.3 03/17/17 06:06 APTT 31 SECONDS (21-34) 03/17/17 06:06 - Constitutional Appears: Non-toxic - Head Exam Head Exam: ATRAUMATIC, NORMOCEPHALIC - Eye Exam Eye Exam: absent: Nystagmus - ENT Exam ENT Exam: Mucous Membranes Moist - Neck Exam Neck Exam: absent: Meningismus - Respiratory Exam Respiratory Exam: Clear to Ausculation Bilateral, NORMAL BREATHING PATTERN - Cardiovascular Exam Cardiovascular Exam: Irregular Rhythm - GI/Abdominal Exam GI & Abdominal Exam: Soft. absent: Distended - Back Exam Back Exam: rash noted (sacral redness) - Neurological Exam Neurological Exam: Alert, Altered Neuro motor strength exam: Right Upper Extremity: 0, Right Lower Extremity: 0 - Skin Skin Exam: Normal Color. absent: Rash Assessment and Plan - Assessment and Plan (Free Text) Assessment: Patient with worsening Hemorrhagic stroke, Atrial Fibrillation, with Hypokalemia , continue supportive care Potassium supplementation Nutrition Family aware of condition, patient wishes DNR as discussed with family
[2017-03-19 09:11] LABS: NEUTROPHIL 85 % (50-75); TOTAL CELLS COUNTED 100
[2017-03-19] MEDS ORDERED: Potassium Chloride 20 mEq ER Tab PO ONE (10:00)
[2017-03-19] MEDS ORDERED: Albuterol-Ipratrop 3 mg / 0.5 (3 ml) UD INH STA (10:26)
[2017-03-19] MEDS ORDERED: Albuterol-Ipratrop 3 mg / 0.5 (3 ml) UD INH PRN (10:27)
--- NOTE | 2017-03-19 10:28 | CP.CCUPN ---
<Jeremy Rubio - Last Filed: 03/19/17 12:15> CCU Subjective - Physician Review Subjective (Free Text): 03/19/17 10:32 Pt seen and examined at bedside. Nursing reports NAEO. Pt opens eyes to speech and will follow speaker with eyes. She is presently unable to follow commands, and will respond 'yes' to every question. Right upper extremity remains flaccid on exam. ROS unable to be accurately completed due to pt status. Critical Care Time Spent (in minutes): 40 CCU Objective - Vital Signs / Intake & Output Vital Signs (Last 4 hours): Vital Signs Temp Pulse Resp BP Pulse Ox 03/19/17 09:00 82 18 135/78 97 03/19/17 08:00 98.1 F 79 20 139/84 98 03/19/17 07:00 85 18 137/82 97 Intake and Output (Last 8hrs): Intake & Output 03/18/17 03/19/17 03/19/17 22:59 06:59 14:59 Intake Total 780 780 380 Output Total 1550 1400 325 Balance -770 -620 55 Weight 125 lb 8 oz Intake: Intake, IV Amount 480 480 180 Right Hand 480 480 180 Oral 80 Tube Feeding 200 300 120 Other 100 Output: Urine 1550 1400 325 Urethral (Bose) 1550 1400 325 Other: # Bowel Movements 0 - Physical Exam Head: Positive for: Atraumatic, Normocephalic Pupils: Positive for: PERRL Mouth: Positive for: Moist Mucous Membranes Respiratory/Chest: Positive for: Clear to Auscultation, Good Air Exchange Cardiovascular: Positive for: Regular Rate and Rhythm Abdomen: Positive for: Normal Bowel Sounds. Negative for: Tenderness, Distention Upper Extremity: Negative for: Edema Lower Extremity: Negative for: Edema Neurological: Positive for: Other (RUE flaccid) Skin: Positive for: Warm, Dry Psychiatric: Positive for: Alert. Negative for: Oriented x 3, Normal Concentration - Medications Active Medications: Active Medications Generic Name Dose Route Start Last Admin Trade Name Freq PRN Reason Stop Dose Admin Acetaminophen 650 mg 03/18/17 16:13 03/18/17 16:50 Tylenol 325mg Tab PO 650 mg Q6 PRN Administration Fever >100.4 F Digoxin 0.125 mg 03/17/17 18:00 03/18/17 17:19 Lanoxin IVP 0.125 mg Q24H EMILIE Administration Famotidine 20 mg 03/17/17 10:00 03/18/17 09:56 Pepcid IVP 20 mg DAILY EMILIE Administration Potassium Chloride 20 meq/ 1,010 mls @ 60 mls/hr 03/19/17 08:44 Sodium Chloride IV .[id number] EMILIE - Patient Studies Lab Studies: Microbiology Studies 03/16/17 22:19 MRSA Culture (Admit) - Final Naris MRSA NOT DETECTED Lab Studies 03/19/17 03/19/17 03/19/17 Range/Units 06:33 06:32 06:32 WBC 12.7 H (4.8-10.8) K/uL RBC 5.00 (3.80-5.20) Mil/uL Hgb 14.9 (11.0-16.0) g/dL Hct 44.2 (34.0-47.0) % MCV 88.4 (81.0-99.0) fL MCH 29.8 (27.0-31.0) pg MCHC 33.7 (33.0-37.0) g/dL RDW 13.2 (11.5-14.5) % Plt Count 335 (130-400) K/uL MPV 7.0 L (7.2-11.7) fL Neut % (Auto) 81.6 H (50.0-75.0) % Lymph % (Auto) 6.2 L (20.0-40.0) % [place] % (Auto) 11.8 H (0.0-10.0) % Eos % (Auto) 0.1 (0.0-4.0) % Baso % (Auto) 0.3 (0.0-2.0) % Neut # 10.3 H (1.8-7.0) K/uL Lymph # 0.8 L (1.0-4.3) K/uL [place] # 1.5 H (0.0-0.8) K/uL Eos # 0.0 (0.0-0.7) K/uL Baso # 0.0 (0.0-0.2) K/uL Neutrophils % (Manual) 85 H (50-75) % Lymphocytes % (Manual) 7 L (20-40) % Monocytes % (Manual) 8 (0-10) % Platelet Estimate Normal (NORMAL) RBC Morphology Normal Sodium 135 (132-148) mmol/L Potassium 3.3 L (3.6-5.2) mmol/L Chloride 99 (98-107) mmol/L Carbon Dioxide 27 (22-30) mmol/L Anion Gap 12 (10-20) BUN 12 (7-17) mg/dL Creatinine 0.4 L (0.7-1.2) MG/DL Est GFR ( Amer) > 60 Est GFR (Non-Af Amer) > 60 POC Glucose (mg/dL) (65-110) mg/dL Random Glucose 140 H (65-105) mg/dL Hemoglobin A1c 5.5 (4.2-6.5) % Calcium 8.1 L (8.6-10.4) mg/dl Total Bilirubin 0.9 (0.2-1.3) mg/dL AST 34 (14-36) U/L ALT 25 (9-52) U/L Alkaline Phosphatase 84 (38-126) U/L Total Protein 6.6 (6.3-8.3) g/dL Albumin 3.5 (3.5-5.0) g/dL Globulin 3.1 (2.2-3.9) gm/dL Albumin/Globulin Ratio 1.2 (1.0-2.1) 03/18/17 Range/Units 11:42 WBC (4.8-10.8) K/uL RBC (3.80-5.20) Mil/uL Hgb (11.0-16.0) g/dL Hct (34.0-47.0) % MCV (81.0-99.0) fL MCH (27.0-31.0) pg MCHC (33.0-37.0) g/dL RDW (11.5-14.5) % Plt Count (130-400) K/uL MPV (7.2-11.7) fL Neut % (Auto) (50.0-75.0) % Lymph % (Auto) (20.0-40.0) % [place] % (Auto) (0.0-10.0) % Eos % (Auto) (0.0-4.0) % Baso % (Auto) (0.0-2.0) % Neut # (1.8-7.0) K/uL Lymph # (1.0-4.3) K/uL [place] # (0.0-0.8) K/uL Eos # (0.0-0.7) K/uL Baso # (0.0-0.2) K/uL Neutrophils % (Manual) (50-75) % Lymphocytes % (Manual) (20-40) % Monocytes % (Manual) (0-10) % Platelet Estimate (NORMAL) RBC Morphology Sodium (132-148) mmol/L Potassium (3.6-5.2) mmol/L Chloride (98-107) mmol/L Carbon Dioxide (22-30) mmol/L Anion Gap (10-20) BUN (7-17) mg/dL Creatinine (0.7-1.2) MG/DL Est GFR ( Amer) Est GFR (Non-Af Amer) POC Glucose (mg/dL) 113 H (65-110) mg/dL Random Glucose (65-105) mg/dL Hemoglobin A1c (4.2-6.5) % Calcium (8.6-10.4) mg/dl Total Bilirubin (0.2-1.3) mg/dL AST (14-36) U/L ALT (9-52) U/L Alkaline Phosphatase (38-126) U/L Total Protein (6.3-8.3) g/dL Albumin (3.5-5.0) g/dL Globulin (2.2-3.9) gm/dL Albumin/Globulin Ratio (1.0-2.1) Laboratory Results - last 24 hr 03/18/17 03/19/17 03/19/17 11:42 06:32 06:32 WBC 12.7 H RBC 5.00 Hgb 14.9 Hct 44.2 MCV 88.4 MCH 29.8 MCHC 33.7 RDW 13.2 Plt Count 335 MPV 7.0 L Neut % (Auto) 81.6 H Lymph % (Auto) 6.2 L [place] % (Auto) 11.8 H Eos % (Auto) 0.1 Baso % (Auto) 0.3 Neut # 10.3 H Lymph # 0.8 L [place] # 1.5 H Eos # 0.0 Baso # 0.0 Neutrophils % (Manual) 85 H Lymphocytes % (Manual) 7 L Monocytes % (Manual) 8 Platelet Estimate Normal RBC Morphology Normal Sodium Potassium Chloride Carbon Dioxide Anion Gap BUN Creatinine Est GFR ( Amer) Est GFR (Non-Af Amer) POC Glucose (mg/dL) 113 H Random Glucose Hemoglobin A1c 5.5 Calcium Total Bilirubin AST ALT Alkaline Phosphatase Total Protein Albumin Globulin Albumin/Globulin Ratio 03/19/17 06:33 WBC RBC Hgb Hct MCV MCH MCHC RDW Plt Count MPV Neut % (Auto) Lymph % (Auto) [place] % (Auto) Eos % (Auto) Baso % (Auto) Neut # Lymph # [place] # Eos # Baso # Neutrophils % (Manual) Lymphocytes % (Manual) Monocytes % (Manual) Platelet Estimate RBC Morphology Sodium 135 Potassium 3.3 L Chloride 99 Carbon Dioxide 27 Anion Gap 12 BUN 12 Creatinine 0.4 L Est GFR ( Amer) > 60 Est GFR (Non-Af Amer) > 60 POC Glucose (mg/dL) Random Glucose 140 H Hemoglobin A1c Calcium 8.1 L Total Bilirubin 0.9 AST 34 ALT 25 Alkaline Phosphatase 84 Total Protein 6.6 Albumin 3.5 Globulin 3.1 Albumin/Globulin Ratio 1.2 Fingerstick Blood Sugar Results: 111 Review of Systems - Review of Systems Systems not reviewed;Unavailable: Altered Mental Status Assessment/Plan - Assessment and Plan (Free Text) Assessment: 81 yo female with hx A-fib, HTN, HLD, DVT, COPD, Osteoporosis, L hip ORIF. presented to ED after family noted altered MS and Right facial droop this afternoon. Pt recently had epistaxis and rectal bleed and coumadin was d/c'd x 1 week. Pt speech is incomprehensible and unable to give hx. In ED pt in rapid A -fib treated with cardizem and metoprolol. Rate controlled on monitor when seen in ED. CT showed large left temporal bleed and Neurosurgery said no intervention. Plan: Pt Status: Admit to ICU, DNR/DNI Neuro: Altered mental status - secondary to intracerebral hemorrhage - CT Head (03/16/17): CODE STROKE: Acute left temporal lobe hemorrhage and adjacent subarachnoid hemorrhage. (see full report) - Repeat CT Head (03/17/17): Increased size of large left temporal and parietal hematoma. Marked increase of mass effect with compression of left lateral ventricle particularly the left temporal horn and shift of septum pellucidum from left to right. (see full report) - Repeat CT Head (03/19/17): f/u report Neurosurgery consult: Dr. Morrell/Tenzin, help appreciated - Patient is NOT a good candidate for any kind of surgical intervention. - Continue supportive care Neuro Consult: Dr. Gaffney, help appreciated - Elevate head, continue bose - stop anticoagulation, antiplatelet - MAP around 100 - When stable MRI Brain Pulm: No acute issues, maintaining airway, breathing spontaneously on nasal cannula oxygen. O2 sat: 98% on 3 L CV: Hemodynamically stable, patient was intermittently on cardene drip for blood pressure control. Cardiology consult: Dr. Ferguson, help appreciated - f/u reccs Hx of Afib - Continue Home Digoxin 0.125mg IV Daily -CHADs2-Vasc2: 6 pts (Criteria: >75: 2pts, Sex: Female +1 pt, HTN hx +1pt, Stroke +2pts) - Anticoagulation C/I due to current bleed -HAS-BLED: 4pts (Criteria: Stroke Hx +1pt, Age >65 +1pt, Medication usage predisposing to bleeding +1pt) - total: 3pts - consider alternative to anticoagulation Hypokalemia 3.3 on AM labs, repleted - KCl 20 meq in NS @ 60cc/hr IV ENDO: Hgb A1c: 5.5 Hem: Pt on Coumadin at home, but had stopped one week prior due to nose/rectal bleeding No coagulopathy at present Renal/: Urine output within normal limits. bose for strict I/O's during acute illness GI: NGT to start tube feeds - isosource@20, goal 40. Integumentary: sacral ulcer: Stage 1 Wound care consult - f/u reccs ID: Leukocytosis: 12.7 today, from 11.5 yesterday - Left shift, with no bands CXR (03/16/17): Cardiomegaly. Evidence of prior granulomatous infection. (see full report) Prophylaxis: DVT proph - no anticoagulation with current bleed, SCDs GI proph - Pepcid 20mg IV Daily <Godfrey Rowell - Last Filed: 03/19/17 18:52> CCU Objective - Vital Signs / Intake & Output Vital Signs (Last 4 hours): Vital Signs Temp Pulse Resp BP Pulse Ox 03/19/17 17:00 74 20 161/101 H 98 05/01/17 16:00 98.4 F 76 18 139/84 97 03/19/17 15:00 70 16 142/86 98 Intake and Output (Last 8hrs): Intake & Output 03/19/17 03/19/17 03/19/17 06:59 14:59 22:59 Intake Total 780 980 330 Output Total 1400 620 140 Balance -620 360 190 Weight 125 lb 8 oz Intake: Intake, IV Amount 480 480 180 Right Hand 480 480 180 Oral 180 30 Tube Feeding 300 320 120 Output: Urine 1400 620 140 Urethral (Bose) 1400 620 140 Other: # Bowel Movements 0 0 - Medications Active Medications: Active Medications Generic Name Dose Route Start Last Admin Trade Name Freq PRN Reason Stop Dose Admin Acetaminophen 650 mg 03/18/17 16:13 03/18/17 16:50 Tylenol 325mg Tab PO 650 mg Q6 PRN Administration Fever >100.4 F Digoxin 0.125 mg 03/17/17 18:00 03/19/17 18:12 Lanoxin IVP 0.125 mg Q24H EMILIE Administration Famotidine 20 mg 03/17/17 10:00 03/19/17 10:33 Pepcid IVP 20 mg DAILY EMILIE Administration Potassium Chloride 20 meq/ 1,010 mls @ 60 mls/hr 03/19/17 08:44 03/19/17 10: 28 Sodium Chloride IV 60 mls/hr .[id number] EMILIE Administration - Patient Studies Lab Studies: Lab Studies 03/19/17 03/19/17 03/19/17 Range/Units 06:33 06:32 06:32 WBC 12.7 H (4.8-10.8) K/uL RBC 5.00 (3.80-5.20) Mil/uL Hgb 14.9 (11.0-16.0) g/dL Hct 44.2 (34.0-47.0) % MCV 88.4 (81.0-99.0) fL MCH 29.8 (27.0-31.0) pg MCHC 33.7 (33.0-37.0) g/dL RDW 13.2 (11.5-14.5) % Plt Count 335 (130-400) K/uL MPV 7.0 L (7.2-11.7) fL Neut % (Auto) 81.6 H (50.0-75.0) % Lymph % (Auto) 6.2 L (20.0-40.0) % [place] % (Auto) 11.8 H (0.0-10.0) % Eos % (Auto) 0.1 (0.0-4.0) % Baso % (Auto) 0.3 (0.0-2.0) % Neut # 10.3 H (1.8-7.0) K/uL Lymph # 0.8 L (1.0-4.3) K/uL [place] # 1.5 H (0.0-0.8) K/uL Eos # 0.0 (0.0-0.7) K/uL Baso # 0.0 (0.0-0.2) K/uL Neutrophils % (Manual) 85 H (50-75) % Lymphocytes % (Manual) 7 L (20-40) % Monocytes % (Manual) 8 (0-10) % Platelet Estimate Normal (NORMAL) RBC Morphology Normal Sodium 135 (132-148) mmol/L Potassium 3.3 L (3.6-5.2) mmol/L Chloride 99 (98-107) mmol/L Carbon Dioxide 27 (22-30) mmol/L Anion Gap 12 (10-20) BUN 12 (7-17) mg/dL Creatinine 0.4 L (0.7-1.2) MG/DL Est GFR ( Amer) > 60 Est GFR (Non-Af Amer) > 60 Random Glucose 140 H (65-105) mg/dL Hemoglobin A1c 5.5 (4.2-6.5) % Calcium 8.1 L (8.6-10.4) mg/dl Total Bilirubin 0.9 (0.2-1.3) mg/dL AST 34 (14-36) U/L ALT 25 (9-52) U/L Alkaline Phosphatase 84 (38-126) U/L Total Protein 6.6 (6.3-8.3) g/dL Albumin 3.5 (3.5-5.0) g/dL Globulin 3.1 (2.2-3.9) gm/dL Albumin/Globulin Ratio 1.2 (1.0-2.1) Laboratory Results - last 24 hr 03/19/17 03/19/1703/19/17 06:32 06:32 06:33 WBC 12.7 H RBC 5.00 Hgb 14.9 Hct 44.2 MCV 88.4 MCH 29.8 MCHC 33.7 RDW 13.2 Plt Count 335 MPV 7.0 L Neut % (Auto) 81.6 H Lymph % (Auto) 6.2 L [place] % (Auto) 11.8 H Eos % (Auto) 0.1 Baso % (Auto) 0.3 Neut # 10.3 H Lymph # 0.8 L [place] # 1.5 H Eos # 0.0 Baso # 0.0 Neutrophils % (Manual) 85 H Lymphocytes % (Manual) 7 L Monocytes % (Manual) 8 Platelet Estimate Normal RBC Morphology Normal Sodium 135 Potassium 3.3 L Chloride 99 Carbon Dioxide 27 Anion Gap 12 BUN 12 Creatinine 0.4 L Est GFR ( Amer) > 60 Est GFR (Non-Af Amer) > 60 Random Glucose 140 H Hemoglobin A1c 5.5 Calcium 8.1 L Total Bilirubin 0.9 AST 34 ALT 25 Alkaline Phosphatase 84 Total Protein 6.6 Albumin 3.5 Globulin 3.1 Albumin/Globulin Ratio 1.2 Attending/Attestation - Attestation I have personally seen and examined this patient.: Yes I have fully participated in the care of the patient.: Yes I have reviewed all pertinent clinical information: Yes Notes (Text): 03/19/17 18:51 Patient seen and examined in the intensive care unit. Case discussed with staff in the morning rounds. Repeat CAT scan showed worsening midline shift Started on mannitol Seen by neurology Patient is DNR/DNI
[2017-03-19] MEDS ORDERED: Potassium Chloride 20 mEq/15 ml LIQ UD PO ONE (10:35)
--- NOTE | 2017-03-19 11:37 | CP.PCM.PN ---
Subjective - Date & Time of Evaluation Date of Evaluation: 03/19/17 Time of Evaluation: 11:35 - Subjective Subjective: CLINICALLY UNCHANGES MOANS TO PAIN LOCALIZE WITH LEFT SPACTIC WITH RIGHT PUPILS LARGE AND RECTIVE ct UNCHANGED FROM 03/17 STABLE NEUROLOGICALLY CONT SUPPORTICE CARE Objective - Vital Signs/Intake and Output Vital Signs (last 24 hours): Temp Pulse Resp BP Pulse Ox 98.1 F 75 18 150/84 97 03/19/17 08:00 03/19/17 11:00 03/19/17 11:00 03/19/17 11:00 03/19/17 11:00 Intake and Output: 03/19/17 03/19/17 06:59 18:59 Intake Total 1140 630 Output Total 1900 440 Balance -760 190 - Medications Medications: Current Medications Acetaminophen (Tylenol 325mg Tab) 650 mg PO Q6 PRN PRN Reason: Fever >100.4 F Last Admin: 03/18/17 16:50 Dose: 650 mg Digoxin (Lanoxin) 0.125 mg IVP Q24H [facility] Last Admin: 03/18/17 17:19 Dose: 0.125 mg Famotidine (Pepcid) 20 mg IVP DAILY [facility] Last Admin: 03/19/17 10:33 Dose: 20 mg Potassium Chloride 20 meq/ (Sodium Chloride) 1,010 mls @ 60 mls/hr IV .[id number] EMILIE Last Admin: 03/19/17 10:28 Dose: 60 mls/hr - Labs Labs: 03/19/17 06:32 03/19/17 06:33 PT 14.1 SECONDS (9.7-12.2) H 03/17/17 06:06 INR 1.3 03/17/17 06:06 APTT 31 SECONDS (21-34) 03/17/17 06:06
--- NOTE | 2017-03-19 13:11 | CT ---
PROCEDURE: CT HEAD WITHOUT CONTRAST. HISTORY: FOLLOW UP FOR ICH COMPARISON: Comparison is made to the previous study dated 03/17/2017 TECHNIQUE: Axial computed tomography images were obtained through the head/brain without intravenous contrast. Radiation dose: Total exam DLP = 981.8 mGy-cm. This CT exam was performed using one or more of the following dose reduction techniques: Automated exposure control, adjustment of the mA and/or kV according to patient size, and/or use of iterative reconstruction technique. FINDINGS: HEMORRHAGE: Again seen is large intraparenchymal heterogeneous hematoma at the left temporal and parietal lobe. BRAIN: Again seen is surrounding edema around the intraparenchymal hemorrhage in the left brain. The whole more itchy and the surrounding edema again resulting in moderate mass effect on the left lateral ventricle and approximately 8 millimeter [id number] midline shift. There is partial effacement of the left basilar cistern. Overlying effacement of the sulci in the left brain is also again noted. The surrounding edema and the mass effect have increased compared to the previous exam. VENTRICLES: There is almost complete assessment of the left lateral ventricle. CALVARIUM: Unremarkable. PARANASAL SINUSES: Mucosal thickening and air-fluid level seen in the left maxillary sinus. MASTOID AIR CELLS: Unremarkable as visualized. No inflammatory changes. OTHER FINDINGS: None. IMPRESSION: Re- demonstration of large heterogeneous intraparenchymal hemorrhage at the left temporal and parietal lobe. Interval further worsening of surrounding edema and mass effect as well as [id number] midline shift compared to the previous exam. Effacement of the left basilar cistern. Findings are concern for subfalcine and mild transtentorial herniation. Diffuse effacement of the sulci at the left brain.
[2017-03-19] MEDS ORDERED: Mannitol 12.5 gm/50 ml Inj IV ONE (15:25)
[2017-03-19] MEDS: Digoxin 500 mcg/2ml (0.5 mg/2ml) Inj IVP SCH (18:12)
--- NOTE | 2017-03-19 20:33 | PN ---
DATE: 03/19/2017 NEUROLOGICAL PROBLEM: Cerebral bleed affecting dominant left temporal lobe. NEUROLOGICAL EXAMINATION: The patient is awake, good visual contact. Speech, Wernicke aphasia which is not changed. Right hem iplegia. Plantars are upgoing on the right side. Spontaneous movement on the left side. She does n ot follow any commands at present. VITAL SIGNS: Pulse rate 85 irregular. Blood pressure 137/80, mean arterial pressure 100, respirator y rate 18. RECOMMENDATIONS: The patient is recommended to have a CT of the head. This could be followed for pr evious intracerebral bleed. Continue present management. Further recommendation will be given following the results of the CAT s can findings. Continue the present management. Nelson Gaffney MD cc: [id number] TT: 03/19/2017 20:32:32 Confirmation # [id number] Dictation # [id number] tianna
--- NOTE | 2017-03-20 00:14 | CP.PCM.PN ---
Subjective - Date & Time of Evaluation Date of Evaluation: 03/19/17 Time of Evaluation: 09:15 - Subjective Subjective: Patient seen and evaluated Hemorrhagic CVA Supportive care Objective - Vital Signs/Intake and Output Vital Signs (last 24 hours): Temp Pulse Resp BP Pulse Ox 98.9 F 79 18 152/95 H 100 03/19/17 20:00 03/19/17 23:40 03/19/17 23:40 03/19/17 23:11 03/19/17 23:40 Intake and Output: 03/19/17 03/20/17 18:59 06:59 Intake Total 1460 100 Output Total 1000 50 Balance 460 50 - Medications Medications: Current Medications Acetaminophen (Tylenol 325mg Tab) 650 mg PO Q6 PRN PRN Reason: Fever >100.4 F Last Admin: 03/18/17 16:50 Dose: 650 mg Digoxin (Lanoxin) 0.125 mg IVP Q24H [facility] Last Admin: 03/19/17 18:12 Dose: 0.125 mg Famotidine (Pepcid) 20 mg IVP DAILY [facility] Last Admin: 03/19/17 10:33 Dose: 20 mg Potassium Chloride 20 meq/ (Sodium Chloride) 1,010 mls @ 60 mls/hr IV .[id number] [facility] Last Admin: 03/19/17 10:28 Dose: 60 mls/hr - Labs Labs: 03/19/17 06:32 03/19/17 06:33 PT 14.1 SECONDS (9.7-12.2) H 03/17/17 06:06 INR 1.3 03/17/17 06:06 APTT 31 SECONDS (21-34) 03/17/17 06:06
[2017-03-20 06:43] LABS: BASO # 0.1 K/uL (0.0-0.2); BASO % 0.7 % (0.0-2.0); EOS % 0.1 % (0.0-4.0); HEMATOCRIT 44.9 % (34.0-47.0); LYMPH # 1.1 K/uL (1.0-4.3); LYMPH % 9.2 % (20.0-40.0); MEAN CELL VOLUME 90.1 fL (81.0-99.0); MEAN CORPUSCULAR HEMOGLOBIN 30.3 pg (27.0-31.0); MEAN CORPUSCULAR HGB CONC 33.6 g/dL (33.0-37.0); MEAN PLATELET VOLUME 6.9 fL (7.2-11.7); MONO # 1.4 K/uL (0.0-0.8); MONO % 11.5 % (0.0-10.0); PLATELET COUNT 301 K/uL (130-400); RED CELL DISTRIBUTION WIDTH 13.4 % (11.5-14.5); WHITE BLOOD COUNT 12.1 K/uL (4.8-10.8)
[2017-03-20 06:46] LABS: CHLORIDE 102 mmol/L (98-107)
[2017-03-20 06:47] LABS: POTASSIUM 4.1 mmol/L (3.6-5.2); SODIUM 139 mmol/L (132-148)
[2017-03-20 06:49] LABS: ALB/GLOB RATIO 1.2 (1.0-2.1); ALKALINE PHOSPHATASE 72 U/L (38-126); ALT/SGPT 30 U/L (9-52); AST/SGOT 38 U/L (14-36); BILIRUBIN,TOTAL 0.9 mg/dL (0.2-1.3); BLOOD UREA NITROGEN 13 mg/dL (7-17); CARBON DIOXIDE 28 mmol/L (22-30); GFR AFRICAN-AMERICAN > 60; TOTAL PROTEIN 6.5 g/dL (6.3-8.3)
[2017-03-20 06:50] LABS: CALCIUM 8.6 mg/dl (8.6-10.4); GLUCOSE,RANDOM 112 mg/dL (65-105); PHOSPHOROUS 2.3 mg/dL (2.5-4.5)
--- NOTE | 2017-03-20 07:19 | CP.PCM.PN ---
<Onesimo Payan - Last Filed: 03/20/17 18:26> Subjective - Date & Time of Evaluation Date of Evaluation: 03/20/17 Time of Evaluation: 07:13 - Subjective Subjective: Cardiology Progress Note Dr. Kelly (covering for Dr. Ferguson) Patient seen and examined at the bedside. No acute distress. No acute events overnight. Nursing staff reports no issues. The patient remains at baseline per discussion with the nursing staff and critical care team. Patient remains unable to follow commands. ROS unable to be obtained at this time. Objective - Vital Signs/Intake and Output Vital Signs (last 24 hours): Temp Pulse Resp BP Pulse Ox 98.4 F 94 H 15 133/84 99 03/20/17 04:00 03/20/17 05:20 03/20/17 05:20 03/20/17 05:14 03/20/17 05:20 Intake and Output: 03/20/17 03/20/17 06:59 18:59 Intake Total 860 Output Total 550 Balance 310 - Medications Medications: Current Medications Acetaminophen (Tylenol 325mg Tab) 650 mg PO Q6 PRN PRN Reason: Fever >100.4 F Last Admin: 03/18/17 16:50 Dose: 650 mg Digoxin (Lanoxin) 0.125 mg IVP Q24H [facility] Last Admin: 03/19/17 18:12 Dose: 0.125 mg Famotidine (Pepcid) 20 mg IVP DAILY [facility] Last Admin: 03/19/17 10:33 Dose: 20 mg Potassium Chloride 20 meq/ (Sodium Chloride) 1,010 mls @ 60 mls/hr IV .[id number] [facility] Last Admin: 03/20/17 06:12 Dose: 60 mls/hr - Labs Labs: 03/20/17 06:29 03/20/17 06:29 PT 14.1 SECONDS (9.7-12.2) H 03/17/17 06:06 INR 1.3 03/17/17 06:06 APTT 31 SECONDS (21-34) 03/17/17 06:06 - Constitutional Appears: Chronically Ill - Head Exam Head Exam: ATRAUMATIC, NORMAL INSPECTION, NORMOCEPHALIC - Eye Exam Eye Exam: absent: Nystagmus - ENT Exam ENT Exam: Mucous Membranes Moist, Normal Exam - Neck Exam Neck Exam: Normal Inspection - Respiratory Exam Respiratory Exam: Clear to Ausculation Bilateral, NORMAL BREATHING PATTERN. absent: Rales, Rhonchi, Wheezes, Stridor - Cardiovascular Exam Cardiovascular Exam: Tachycardia, Irregular Rhythm (irregularly), +S1, +S2. absent: Diastolic murmur, REGULAR RHYTHM, RRR, Murmur - GI/Abdominal Exam GI & Abdominal Exam: Soft, Normal Bowel Sounds. absent: Guarding, Rigid, Tenderness - Extremities Exam Extremities Exam: Normal Inspection - Neurological Exam Neurological Exam: Altered Neuro motor strength exam: Left Upper Extremity: 5, Right Upper Extremity: 0, Left Lower Extremity: 5, Right Lower Extremity: 0 - Skin Skin Exam: Dry, Intact, Normal Color, Warm Assessment and Plan (1) Hemorrhagic stroke Assessment & Plan: continue supportive care and medical management per ICU team Anticoagulation contraindicated 2/2 to worsening intracranial hemorrhage 03/19/17 CT Head- Re- demonstration of large heterogeneous intraparenchymal hemorrhage at the left temporal and parietal lobe. Interval further worsening of surrounding edema and mass effect as well as [id number] midline shift compared to the previous exam. Effacement of the left basilar cistern. Findings are concern for subfalcine and mild transtentorial herniation. Diffuse effacement of the sulci at the left brain. Status: Acute (2) A-fib Assessment & Plan: HAS-BLED: 3 (high risk for anticoagulation) [id number]: Score 8 hold anticoagulation 2/2 to hemorrhagic stroke continue rate control with digoxin 0.125mg IV daily 03/16/17 EKG- A-fib with RVR (112bpm), occasional PVC, normal QRS duration, prolonged QTc, left axis deviation, non specific ST/T wave changes 01/23/15 Echo- normal systolif (EF- 74%) and diastolic function, mild mitral regurgitation Status: Chronic <Juan Pablo Kelly A - Last Filed: 04/30/17 04:50> Objective - Vital Signs/Intake and Output Vital Signs (last 24 hours): Temp Pulse Resp BP Pulse Ox 98.4 F 90 20 126/77 97 03/29/17 15:41 03/29/17 15:41 03/29/17 15:41 03/29/17 15:41 03/29/17 15:41 - Labs Labs: 03/29/17 14:13 03/29/17 14:13 PT 14.8 SECONDS (9.7-12.2) H 03/27/17 11:54 INR 1.3 03/27/17 11:54 APTT 31 SECONDS (21-34) 03/17/17 06:06 Assessment and Plan (1) Hip fracture, left Status: Acute (2) Intracranial bleed Status: Acute Attending/Attestation - Attestation I have personally seen and examined this patient.: Yes I have fully participated in the care of the patient.: Yes I have reviewed all pertinent clinical information, including history, physical exam and plan: Yes Notes (Text): 04/30/17 04:50 continue digoxin
--- NOTE | 2017-03-20 07:36 | PN ---
DATE: 03/20/2017 TIME OF EVALUATION: 7:15 a.m. NEUROLOGICAL PROBLEM: Dominant hemispheric lobar hemorrhage manifesting with Wernicke's aphasia, rig ht hemiparesis and right homonymous hemianopsia. Repeat CT of the head showed increased swelling with shift left to the right ventricular effacement n oted. There is no new bleed noted . The patient was given IV mannitol yesterday with FFP yesterday after discussing with the rubber trimmer. The patient responsive to her name. Good visual cue on her left side. Eye movements are normal. No pupillary asymmetry. Speech Wernicke's aphasia. She was able to copy the signs. At times, she nod ded her head appropriately. She is on NG tube feeding. Motor examination: Dense right hemiplegia. Plantars are upgoing on the right. RECOMMENDATIONS: Continue the present management, keep the mean blood pressure around 100, aspiratio n precaution should be watched. Keep the head elevation. The patient should have an electroencephal ogram to assess the electrical activities of the brain, not to miss convulsive process. The patient seems to be improving neurologically. The patient will be followed closely with you. Nelson Gaffney MD cc: [id number] TT: 03/20/2017 07:36:10 Confirmation # [id number] Dictation # [id number] tn
[2017-03-20 08:37] LABS: BASOPHIL 1 % (0-2); NEUTROPHIL 75 % (50-75); TOTAL CELLS COUNTED 100
[2017-03-20] MEDS ORDERED: POLYETHYLENE GLYCOL 3350 17 GM/Dose PACKET PO ONE (08:45)
--- NOTE | 2017-03-20 08:51 | CP.CCUPN ---
<Jeremy Rubio - Last Filed: 03/20/17 14:16> CCU Subjective - Physician Review Subjective (Free Text): 03/20/17 10:32 Pt seen and examined at bedside. Nursing reports NAEO. Pt opens eyes to speech and will follow speaker with eyes. She is presently following simple commands, and will respond to her name, but will only nod yes when asked questions. Right upper extremity remains flaccid on exam. Pt receiving EEG this AM. ROS unable to be accurately completed due to pt status. Critical Care Time Spent (in minutes): 45 CCU Objective - Vital Signs / Intake & Output Vital Signs (Last 4 hours): Vital Signs Pulse Resp BP Pulse Ox 03/20/17 06:50 79 20 99 03/20/17 06:40 81 18 99 03/20/17 06:30 76 18 100 03/20/17 06:20 74 18 100 03/20/17 06:14 76 18 151/97 H 99 03/20/17 06:10 87 18 99 03/20/17 06:00 80 21 99 03/20/17 05:40 102 H 15 96 03/20/17 05:30 97 H 22 97 03/20/17 05:20 94 H 15 99 03/20/17 05:14 84 19 133/84 99 03/20/17 05:10 80 18 98 03/20/17 05:00 88 22 98 Intake and Output (Last 8hrs): Intake & Output 03/19/17 03/20/17 03/20/17 22:59 06:59 14:59 Intake Total 1040 800 100 Output Total 445 550 40 Balance 595 250 60 Weight 137 lb 12.8 oz Intake: Intake, IV Amount 470 480 60 Right Hand 470 480 60 Oral 30 Tube Feeding 320 320 40 Blood Product 220 Output: Urine 445 550 40 Urethral (Bose) 445 550 40 Other: # Bowel Movements 0 0 0 - Physical Exam Head: Positive for: Atraumatic, Normocephalic Pupils: Positive for: PERRL Mouth: Positive for: Moist Mucous Membranes Respiratory/Chest: Positive for: Clear to Auscultation, Good Air Exchange Cardiovascular: Positive for: Regular Rate and Rhythm Abdomen: Positive for: Normal Bowel Sounds. Negative for: Tenderness, Distention Upper Extremity: Positive for: Other (Flaccid RUE). Negative for: Edema Lower Extremity: Positive for: Other (Plantar upgoing on right). Negative for: Edema Neurological: Positive for: Other (RUE flaccid, able to follow commands, aphasia , weak RLE). Negative for: CN II-XII Intact, Speech Normal Skin: Positive for: Warm, Dry Psychiatric: Positive for: Alert. Negative for: Oriented x 3, Normal Concentration - Medications Active Medications: Active Medications Generic Name Dose Route Start Last Admin Trade Name Freq PRN Reason Stop Dose Admin Acetaminophen 650 mg 03/18/17 16:13 03/18/17 16:50 Tylenol 325mg Tab PO 650 mg Q6 PRN Administration Fever >100.4 F Digoxin 0.125 mg 03/17/17 18:00 03/19/17 18:12 Lanoxin IVP 0.125 mg Q24H EMILIE Administration Famotidine 20 mg 03/17/17 10:00 03/19/17 10:33 Pepcid IVP 20 mg DAILY EMILIE Administration Potassium Chloride 20 meq/ 1,010 mls @ 60 mls/hr 03/19/17 08:44 03/20/17 06: 12 Sodium Chloride IV 60 mls/hr .[id number] EMILIE Administration - Patient Studies Lab Studies: Lab Studies 03/20/17 03/20/17 03/19/17 Range/Units 06:29 06:29 06:32 WBC 12.1 H (4.8-10.8) K/uL RBC 4.98 (3.80-5.20) Mil/uL Hgb 15.1 (11.0-16.0) g/dL Hct 44.9 (34.0-47.0) % MCV 90.1 (81.0-99.0) fL MCH 30.3 (27.0-31.0) pg MCHC 33.6 (33.0-37.0) g/dL RDW 13.4 (11.5-14.5) % Plt Count 301 (130-400) K/uL MPV 6.9 L (7.2-11.7) fL Neut % (Auto) 78.5 H (50.0-75.0) % Lymph % (Auto) 9.2 L (20.0-40.0) % Thayer % (Auto) 11.5 H (0.0-10.0) % Eos % (Auto) 0.1 (0.0-4.0) % Baso % (Auto) 0.7 (0.0-2.0) % Neut # 9.5 H (1.8-7.0) K/uL Lymph # 1.1 (1.0-4.3) K/uL Thayer # 1.4 H (0.0-0.8) K/uL Eos # 0.0 (0.0-0.7) K/uL Baso # 0.1 (0.0-0.2) K/uL Neutrophils % (Manual) 75 85 H (50-75) % Lymphocytes % (Manual) 8 L 7 L (20-40) % Monocytes % (Manual) 16 H 8 (0-10) % Basophils % (Manual) 1 (0-2) % Platelet Estimate Normal Normal (NORMAL) RBC Morphology Normal Normal Sodium 139 (132-148) mmol/L Potassium 4.1 (3.6-5.2) mmol/L Chloride 102 (98-107) mmol/L Carbon Dioxide 28 (22-30) mmol/L Anion Gap 13 (10-20) BUN 13 (7-17) mg/dL Creatinine 0.4 L (0.7-1.2) MG/DL Est GFR ( Amer) > 60 Est GFR (Non-Af Amer) > 60 Random Glucose 112 H (65-105) mg/dL Calcium 8.6 (8.6-10.4) mg/dl Phosphorus 2.3 L (2.5-4.5) mg/dL Magnesium 2.0 (1.6-2.3) mg/dL Total Bilirubin 0.9 (0.2-1.3) mg/dL AST 38 H (14-36) U/L ALT 30 (9-52) U/L Alkaline Phosphatase 72 (38-126) U/L Total Protein 6.5 (6.3-8.3) g/dL Albumin 3.6 (3.5-5.0) g/dL Globulin 2.9 (2.2-3.9) gm/dL Albumin/Globulin Ratio 1.2 (1.0-2.1) Laboratory Results - last 24 hr 03/19/17 03/20/17 03/20/17 06:32 06:29 06:29 WBC 12.1 H RBC 4.98 Hgb 15.1 Hct 44.9 MCV 90.1 MCH 30.3 MCHC 33.6 RDW 13.4 Plt Count 301 MPV 6.9 L Neut % (Auto) 78.5 H Lymph % (Auto) 9.2 L Thayer % (Auto) 11.5 H Eos % (Auto) 0.1 Baso % (Auto) 0.7 Neut # 9.5 H Lymph # 1.1 Thayer # 1.4 H Eos # 0.0 Baso # 0.1 Neutrophils % (Manual) 85 H 75 Lymphocytes % (Manual) 7 L 8 L Monocytes % (Manual) 8 16 H Basophils % (Manual) 1 Platelet Estimate Normal Normal RBC Morphology Normal Normal Sodium 139 Potassium 4.1 Chloride 102 Carbon Dioxide 28 Anion Gap 13 BUN 13 Creatinine 0.4 L Est GFR ( Amer) > 60 Est GFR (Non-Af Amer) > 60 Random Glucose 112 H Calcium 8.6 Phosphorus 2.3 L Magnesium 2.0 Total Bilirubin 0.9 AST 38 H ALT 30 Alkaline Phosphatase 72 Total Protein 6.5 Albumin 3.6 Globulin 2.9 Albumin/Globulin Ratio 1.2 Fingerstick Blood Sugar Results: 111 Review of Systems - Review of Systems Systems not reviewed;Unavailable: Altered Mental Status Assessment/Plan - Assessment and Plan (Free Text) Assessment: 81 yo female with hx A-fib, HTN, HLD, DVT, COPD, Osteoporosis, L hip ORIF. presented to ED after family noted altered MS and Right facial droop this afternoon. Pt recently had epistaxis and rectal bleed and coumadin was d/c'd x 1 week. Pt speech is incomprehensible and unable to give hx. In ED pt in rapid A -fib treated with cardizem and metoprolol. Rate controlled on monitor when seen in ED. CT showed large left temporal bleed and Neurosurgery said no intervention. Plan: Pt Status: Admit to ICU, DNR/DNI Neuro: Altered mental status - secondary to intracerebral hemorrhage - CT Head (03/16/17): CODE STROKE: Acute left temporal lobe hemorrhage and adjacent subarachnoid hemorrhage. (see full report) - Repeat CT Head (03/17/17): Increased size of large left temporal and parietal hematoma. Marked increase of mass effect with compression of left lateral ventricle particularly the left temporal horn and shift of septum pellucidum from left to right. (see full report) - Repeat CT Head #2 (03/19/17): Redemonstration of large heterogenous intraparenchymal hemorrhage at left temporal and parietal lobe. Worsening of surrounding edema and mass effect as well as left to right midline shift compared to previous exam. Effacement of left basilar cistern. Concerning findings for subfalcine and mild transtentorial herniation. (see full report) Neurosurgery consult: Dr. Morrell/Tenzin, deb appreciated - Patient is NOT a good candidate for any kind of surgical intervention. - Continue supportive care Neuro Consult: Dr. Gaffney, help appreciated - After results of CT Head #2, give FFP and Mannitol once - stop anticoagulation, antiplatelet - MAP around 100 - When stable MRI Brain - f/u EEG Pulm: No acute issues, maintaining airway, breathing spontaneously on nasal cannula oxygen. O2 sat: 98% on 3 L CV: Hemodynamically stable, patient was intermittently on cardene drip for blood pressure control. Cardiology consult: Dr. Ferguson, deb appreciated - f/u ECHO Hx of Afib - Continue Home Digoxin 0.125mg IV Daily -CHADs2-Vasc2: 6 pts (Criteria: >75: 2pts, Sex: Female +1 pt, HTN hx +1pt, Stroke +2pts) - Anticoagulation C/I due to current bleed -HAS-BLED: 3pts (Criteria: Stroke Hx +1pt, Age >65 +1pt, Medication usage predisposing to bleeding +1pt) - total: 3pts - consider alternative to anticoagulation Hypokalemia - Resolved 4.1 on AM labs - KCl 20 meq in NS @ 60cc/hr IV ENDO: Hgb A1c: 5.5 Hem: Pt on Coumadin at home, but had stopped one week prior due to nose/rectal bleeding No coagulopathy at present Renal/: Urine output within normal limits. bose for strict I/O's during acute illness Hypophosphatemia - 2.3 on AM labs - Neutraphos GI: NGT to start tube feeds - isosource@20, goal 40 Constipation - per family, no BM x 5 days - Miralax ONCE MSKLTL: - RUE flaccid - US Venous Doppler B/l LE: negative b/l - f/u PT eval Integumentary: sacral ulcers: Stage 1, Stage 2 Wound care consult - Aloe vesta 3x daily to entire sacral region - reposition frequently ID: Leukocytosis: 12.1 today, from 12.7 yesterday - Left shift improving, with no bands CXR (03/16/17): Cardiomegaly. Evidence of prior granulomatous infection. (see full report) Prophylaxis: DVT proph - no anticoagulation with current bleed, SCDs GI proph - Pepcid 20mg IV Daily <Fatimah Hermosillo - Last Filed: 03/20/17 19:12> CCU Objective - Vital Signs / Intake & Output Vital Signs (Last 4 hours): Vital Signs Temp Pulse Resp BP Pulse Ox 03/20/17 18:15 92 H 22 131/84 99 03/20/17 18:10 81 21 100 03/20/17 18:00 85 21 100 03/20/17 17:50 87 24 100 03/20/17 17:40 80 21 100 03/20/17 17:30 72 17 100 03/20/17 17:20 74 18 100 03/20/17 17:14 82 20 125/83 100 03/20/17 17:10 85 17 98 03/20/17 17:00 82 20 99 03/20/17 16:50 98 H 24 99 03/20/17 16:40 102 H 25 H 99 03/20/17 16:30 83 20 99 03/20/17 16:20 87 23 99 03/20/17 16:14 96 H 24 130/85 99 03/20/17 16:10 100 H 25 H 98 03/20/17 16:00 98 F 79 20 100 03/20/17 15:50 85 21 100 03/20/17 15:40 82 22 100 03/20/17 15:30 83 22 100 03/20/17 15:20 87 20 100 03/20/17 15:14 67 19 131/92 H 99 Intake and Output (Last 8hrs): Intake & Output 03/20/17 03/20/17 03/20/17 06:59 14:59 22:59 Intake Total 800 960 400 Output Total 550 545 230 Balance 250 415 170 Weight 137 lb 12.8 oz Intake: Intake, IV Amount 480 600 240 Right Hand 480 600 240 Tube Feeding 320 360 160 Output: Urine 550 545 230 Urethral (Bose) 550 545 230 Other: # Bowel Movements 0 0 - Medications Active Medications: Active Medications Generic Name Dose Route Start Last Admin Trade Name Freq PRN Reason Stop Dose Admin Acetaminophen 650 mg 03/18/17 16:13 03/18/17 16:50 Tylenol 325mg Tab PO 650 mg Q6 PRN Administration Fever >100.4 F Digoxin 0.125 mg 03/17/17 18:00 03/20/17 17:19 Lanoxin IVP 0.125 mg Q24H EMILIE Administration Famotidine 20 mg 03/17/17 10:00 03/20/17 09:31 Pepcid IVP 20 mg DAILY EMILIE Administration Potassium Chloride 10 meq/ 1,005 mls @ 60 mls/hr 03/20/17 18:56 Sodium Chloride IV .[id number] EMILIE Potassium Phos/Sodium Phos 1 pkt 03/20/17 15:45 03/20/17 17:18 Neutra-Phos PO 1 pkt Q8 EMILIE Administration - Patient Studies Lab Studies: Lab Studies 03/20/17 03/20/17 Range/Units 06:29 06:29 WBC 12.1 H (4.8-10.8) K/uL RBC 4.98 (3.80-5.20) Mil/uL Hgb 15.1 (11.0-16.0) g/dL Hct 44.9 (34.0-47.0) % MCV 90.1 (81.0-99.0) fL MCH 30.3 (27.0-31.0) pg MCHC 33.6 (33.0-37.0) g/dL RDW 13.4 (11.5-14.5) % Plt Count 301 (130-400) K/uL MPV 6.9 L (7.2-11.7) fL Neut % (Auto) 78.5 H (50.0-75.0) % Lymph % (Auto) 9.2 L (20.0-40.0) % Thayer % (Auto) 11.5 H (0.0-10.0) % Eos % (Auto) 0.1 (0.0-4.0) % Baso % (Auto) 0.7 (0.0-2.0) % Neut # 9.5 H (1.8-7.0) K/uL Lymph # 1.1 (1.0-4.3) K/uL Thayer # 1.4 H (0.0-0.8) K/uL Eos # 0.0 (0.0-0.7) K/uL Baso # 0.1 (0.0-0.2) K/uL Neutrophils % (Manual) 75 (50-75) % Lymphocytes % (Manual) 8 L (20-40) % Monocytes % (Manual) 16 H (0-10) % Basophils % (Manual) 1 (0-2) % Platelet Estimate Normal (NORMAL) RBC Morphology Normal Sodium 139 (132-148) mmol/L Potassium 4.1 (3.6-5.2) mmol/L Chloride 102 (98-107) mmol/L Carbon Dioxide 28 (22-30) mmol/L Anion Gap 13 (10-20) BUN 13 (7-17) mg/dL Creatinine 0.4 L (0.7-1.2) MG/DL Est GFR ( Amer) > 60 Est GFR (Non-Af Amer) > 60 Random Glucose 112 H (65-105) mg/dL Calcium 8.6 (8.6-10.4) mg/dl Phosphorus 2.3 L (2.5-4.5) mg/dL Magnesium 2.0 (1.6-2.3) mg/dL Total Bilirubin 0.9 (0.2-1.3) mg/dL AST 38 H (14-36) U/L ALT 30 (9-52) U/L Alkaline Phosphatase 72 (38-126) U/L Total Protein 6.5 (6.3-8.3) g/dL Albumin 3.6 (3.5-5.0) g/dL Globulin 2.9 (2.2-3.9) gm/dL Albumin/Globulin Ratio 1.2 (1.0-2.1) Laboratory Results - last 24 hr 03/20/17 03/20/17 06:29 06:29 WBC 12.1 H RBC 4.98 Hgb 15.1 Hct 44.9 MCV 90.1 MCH 30.3 MCHC 33.6 RDW 13.4 Plt Count 301 MPV 6.9 L Neut % (Auto) 78.5 H Lymph % (Auto) 9.2 L Thayer % (Auto) 11.5 H Eos % (Auto) 0.1 Baso % (Auto) 0.7 Neut # 9.5 H Lymph # 1.1 Thayer # 1.4 H Eos # 0.0 Baso # 0.1 Neutrophils % (Manual) 75 Lymphocytes % (Manual) 8 L Monocytes % (Manual) 16 H Basophils % (Manual) 1 Platelet Estimate Normal RBC Morphology Normal Sodium 139 Potassium 4.1 Chloride 102 Carbon Dioxide 28 Anion Gap 13 BUN 13 Creatinine 0.4 L Est GFR ( Amer) > 60 Est GFR (Non-Af Amer) > 60 Random Glucose 112 H Calcium 8.6 Phosphorus 2.3 L Magnesium 2.0 Total Bilirubin 0.9 AST 38 H ALT 30 Alkaline Phosphatase 72 Total Protein 6.5 Albumin 3.6 Globulin 2.9 Albumin/Globulin Ratio 1.2 Attending/Attestation - Attestation I have personally seen and examined this patient.: Yes I have fully participated in the care of the patient.: Yes I have reviewed all pertinent clinical information: Yes Notes (Text): 03/20/17 19:12 Problems and assessment discussed during the rounds. Clinically patient is stable. Patient is DNR continue current treatment
--- NOTE | 2017-03-20 14:01 | VASCLAB ---
PROCEDURE: Lower Extremity Venous Duplex Exam. HISTORY: Leg swelling PRIORS: None. TECHNIQUE: Bilateral common femoral, femoral, popliteal and posterior tibial, peroneal and great saphenous veins were evaluated. Flow was assessed with color Doppler, compressibility, assessment of phasic flow and augmentation response. Report prepared by GABRIELA Fernandez, RVT FINDINGS: RIGHT: 1. Common Femoral Vein: 1.1. Compressibility - Fully compressible: Thrombus - None : Flow - Phasic: Augmentation -Normal: Reflux - None. 2. Femoral Vein: 2.1. Compressibility - Fully compressible: Thrombus - None : Flow - Phasic: Augmentation -Normal: Reflux - None. 3. Popliteal Vein: 3.1. Compressibility - Fully compressible: Thrombus - None : Flow - Phasic: Augmentation -Normal: Reflux - None. 4. Posterior Tibial Vein: 4.1. Compressibility - Fully compressible: Thrombus - None: Flow - Phasic: Augmentation -Normal: Reflux - None. 5. Peroneal Vein: 5.1. Compressibility - Fully compressible: Thrombus - None: Flow - Phasic: Augmentation -Normal: Reflux - None. 6. Great Saphenous Vein: 6.1. Compressibility - Fully compressible: Thrombus - None: Flow - Phasic: Augmentation - Normal: Reflux - None. LEFT: 1. Common Femoral Vein: 1.1. Compressibility - Fully compressible: Thrombus - None: Flow - Phasic: Augmentation -Normal: Reflux - None. 2. Femoral Vein: 2.1. Compressibility - Fully compressible: Thrombus - None: Flow - Phasic: Augmentation -Normal: Reflux - None. 3. Popliteal Vein: 3.1. Compressibility - Fully compressible: Thrombus - None : Flow - Phasic: Augmentation -Normal: Reflux - None. 4. Posterior Tibial Vein: 4.1. Compressibility - Fully compressible: Thrombus - None: Flow - Phasic: Augmentation -Normal: Reflux - None. 5. Peroneal Vein: 5.1. Compressibility - Fully compressible: Thrombus - None: Flow - Phasic: Augmentation -Normal: Reflux - None. 6. Great Saphenous Vein: 6.1. Compressibility - Fully compressible: Thrombus - None: Flow - Phasic: Augmentation - Normal: Reflux - None. OTHER FINDINGS: Right: None significant. Left: None significant. IMPRESSION: Right: No evidence of deep or superficial vein thrombosis of the right lower extremity. Normal valve function noted of the right side. Left: No evidence of deep or superficial vein thrombosis of the left lower extremity. Normal valve function noted of the left side.
[2017-03-20] MEDS: Potassium & Sodium Phosphate PO SCH ×2 (17:18→21:21)
[2017-03-20] MEDS: Digoxin 500 mcg/2ml (0.5 mg/2ml) Inj IVP SCH (17:19)
--- NOTE | 2017-03-20 19:03 | CP.PCM.PN ---
Subjective - Date & Time of Evaluation Date of Evaluation: 03/20/17 Time of Evaluation: 04:30 - Subjective Subjective: Patient seen- daughter by bedside, update taken from nurse ic= in charge- patient is more awake , , non verbal, does not follow command, turnes head and opens eys with call, with episodic movement noted on left side, right extremeties are limp Objective - Vital Signs/Intake and Output Vital Signs (last 24 hours): Temp Pulse Resp BP Pulse Ox 98 F 92 H 22 131/84 99 03/20/17 16:00 03/20/17 18:15 03/20/17 18:15 03/20/17 18:15 03/20/17 18:15 Intake and Output: 03/20/17 03/21/17 18:59 06:59 Intake Total 1360 Output Total 775 Balance 585 - Medications Medications: Current Medications Acetaminophen (Tylenol 325mg Tab) 650 mg PO Q6 PRN PRN Reason: Fever >100.4 F Last Admin: 03/18/17 16:50 Dose: 650 mg Digoxin (Lanoxin) 0.125 mg IVP Q24H PENDING [facility] TO [facility] Last Admin: 03/20/17 17:19 Dose: 0.125 mg Famotidine (Pepcid) 20 mg IVP DAILY [facility] TO [facility] Last Admin: 03/20/17 09:31 Dose: 20 mg Potassium Chloride 10 meq/ (Sodium Chloride) 1,005 mls @ 60 mls/hr IV .[id number] PENDING SALE TO [facility] Potassium Phos/Sodium Phos (Neutra-Phos) 1 pkt PO Q8 PEND[facility] S[facility] TO [facility] Last Admin: 03/20/17 17:18 Dose: 1 pkt - Labs Labs: 03/20/17 06:29 03/20/17 06:29 PT 14.1 SECONDS (9.7-12.2) H 03/17/17 06:06 INR 1.3 03/17/17 06:06 APTT 31 SECONDS (21-34) 03/17/17 06:06 - Constitutional Appears: Non-toxic, No Acute Distress, Confused - Head Exam Head Exam: ATRAUMATIC, NORMOCEPHALIC - Eye Exam Eye Exam: Normal appearance. absent: Nystagmus, Periorbital swelling - ENT Exam ENT Exam: Mucous Membranes Moist - Respiratory Exam Respiratory Exam: Clear to Ausculation Bilateral, NORMAL BREATHING PATTERN - Cardiovascular Exam Cardiovascular Exam: Irregular Rhythm - GI/Abdominal Exam GI & Abdominal Exam: Soft. absent: Distended - Extremities Exam Extremities Exam: absent: Joint Swelling, Pedal Edema - Back Exam Back Exam: rash noted (tiny sacral redness) - Neurological Exam Neurological Exam: Altered (awake, but is non verbal, does not follow command but turns head and opens eyes with call,) - Skin Skin Exam: Normal Color. absent: Rash Assessment and Plan - Assessment and Plan (Free Text) Assessment: Patient with AFIB- Hypertensison Chronic HYpokalemia, on monitoring for Cerebral hemorrhage, with slight improvement on wakefullness, repeat CT head with midline shift , guarded conditon, supportive care daughter Maria R aware of condition and plan Potassium improved, will keep supplementation, (history of Chronic Hypokalemia,
[2017-03-21] MEDS: Potassium & Sodium Phosphate PO SCH ×3 (06:30→21:41)
[2017-03-21 06:40] LABS: BASO # 0.1 K/uL (0.0-0.2); BASO % 0.6 % (0.0-2.0); EOS % 0.3 % (0.0-4.0); HEMATOCRIT 43.1 % (34.0-47.0); LYMPH # 0.7 K/uL (1.0-4.3); LYMPH % 5.4 % (20.0-40.0); MEAN CELL VOLUME 89.4 fL (81.0-99.0); MEAN CORPUSCULAR HGB CONC 33.6 g/dL (33.0-37.0); MONO # 1.2 K/uL (0.0-0.8); MONO % 9.5 % (0.0-10.0); PLATELET COUNT 303 K/uL (130-400); RED CELL DISTRIBUTION WIDTH 13.3 % (11.5-14.5); WHITE BLOOD COUNT 12.2 K/uL (4.8-10.8)
[2017-03-21 06:56] LABS: CHLORIDE 100 mmol/L (98-107); POTASSIUM 3.9 mmol/L (3.6-5.2); SODIUM 136 mmol/L (132-148)
[2017-03-21 06:58] LABS: GFR AFRICAN-AMERICAN > 60
[2017-03-21 06:59] LABS: ALB/GLOB RATIO 1.2 (1.0-2.1); ALKALINE PHOSPHATASE 73 U/L (38-126); ALT/SGPT 32 U/L (9-52); AST/SGOT 38 U/L (14-36); BLOOD UREA NITROGEN 14 mg/dL (7-17); CARBON DIOXIDE 28 mmol/L (22-30); GLUCOSE,RANDOM 117 mg/dL (65-105); TOTAL PROTEIN 6.4 g/dL (6.3-8.3)
[2017-03-21 07:00] LABS: CALCIUM 8.6 mg/dl (8.6-10.4)
--- NOTE | 2017-03-21 07:38 | PN ---
DATE: 03/21/2017 TIME OF EVALUATION: 7:19 a.m. NEUROLOGICAL PROBLEM: Status post dominant hemispheric temporal lobe hemorrhage manifesting with Wer nicke aphasia, right hemiplegia with homonymous hemianopsia of the right side. The patient's mental status is somewhat improved, is awake, good eye contact, mumbling her voice. Sh e tried to follow copying sign. Spontaneous movement on the left side, the examination which is unch anged to compare with yesterday's exam. RECOMMENDATIONS: 1. The patient did have an electroencephalogram that will be reviewed by me. 2. We will repeat CT of the head without contrast to assess the intracerebral bleed. For prison management, the patient can be benefited on giving her PEG to improve her nutritional st atus. If medically stable, the patient can be moved out of the unit if no progression of the bleed i n the head. The patient will be followed closely with you. Nelson Gaffney MD cc: [id number] TT: 03/21/2017 07:37:37 Confirmation # [id number] Dictation # [id number] tn
--- NOTE | 2017-03-21 08:04 | CP.CCUPN ---
<Jeremy Rubio - Last Filed: 03/21/17 11:31> CCU Subjective - Physician Review Subjective (Free Text): 03/21/17 08:04 Pt seen and examined at bedside. Nursing reports NAEO. Exam is same as yesterday , presently following simple commands, and will respond to her name, but will only nod yes when asked questions. Right upper extremity remains flaccid, with limited strength noted in RLE, on exam. ROS unable to be accurately completed due to pt status. Critical Care Time Spent (in minutes): 45 CCU Objective - Vital Signs / Intake & Output Vital Signs (Last 4 hours): Vital Signs Pulse Resp BP Pulse Ox 03/21/17 07:00 97 H 26 H 99 03/21/17 06:50 91 H 21 99 03/21/17 06:40 93 H 21 99 03/21/17 06:30 90 20 100 03/21/17 06:20 92 H 22 99 03/21/17 06:10 91 H 22 98 03/21/17 06:05 90 25 H 163/94 H 98 03/21/17 06:00 97 H 25 H 99 03/21/17 05:50 85 24 98 03/21/17 05:14 140/101 H 03/21/17 05:09 104 H 24 139/93 H 98 03/21/17 05:00 103 H 23 98 03/21/17 04:31 101 H 20 98 Intake and Output (Last 8hrs): Intake & Output 03/20/17 03/21/17 03/21/17 22:59 06:59 14:59 Intake Total 1000 900 100 Output Total 380 450 45 Balance 620 450 55 Weight 135 lb 12.8 oz Intake: Intake, IV Amount 480 480 60 Right Hand 480 480 60 Tube Feeding 320 320 40 Other 200 100 Output: Urine 380 450 45 Urethral (Bose) 380 450 45 Other: # Bowel Movements 0 0 0 - Physical Exam Head: Positive for: Atraumatic, Normocephalic Pupils: Positive for: PERRL Mouth: Positive for: Moist Mucous Membranes Respiratory/Chest: Positive for: Clear to Auscultation, Good Air Exchange Cardiovascular: Positive for: Irregular Rhythm Abdomen: Positive for: Normal Bowel Sounds. Negative for: Tenderness, Distention Upper Extremity: Positive for: Other (Flaccid RUE). Negative for: Edema Lower Extremity: Positive for: Capillary Refill < 2 s, Other (Plantar upgoing on right). Negative for: Edema Neurological: Positive for: Other (RUE flaccid, able to follow commands, aphasia , weak RLE). Negative for: GCS=15, CN II-XII Intact, Speech Normal Skin: Positive for: Warm, Dry Psychiatric: Positive for: Alert. Negative for: Oriented x 3, Normal Concentration - Medications Active Medications: Active Medications Generic Name Dose Route Start Last Admin Trade Name Freq PRN Reason Stop Dose Admin Acetaminophen 650 mg 03/18/17 16:13 03/18/17 16:50 Tylenol 325mg Tab PO 650 mg Q6 PRN Administration Fever >100.4 F Digoxin 0.125 mg 03/17/17 18:00 03/20/17 17:19 Lanoxin IVP 0.125 mg Q24H EMILIE Administration Famotidine 20 mg 03/17/17 10:00 03/20/17 09:31 Pepcid IVP 20 mg DAILY EMILIE Administration Potassium Chloride 10 meq/ 1,005 mls @ 60 mls/hr 03/20/17 18:56 03/20/17 21: 21 Sodium Chloride IV 60 mls/hr .[id number] EMILIE Administration Potassium Phos/Sodium Phos 1 pkt 03/20/17 15:45 03/21/17 06:30 Neutra-Phos PO 1 pkt Q8 EMILIE Administration - Patient Studies Lab Studies: Lab Studies 03/21/17 03/21/17 03/20/17 Range/Units 06:27 06:24 06:29 WBC 12.2 H (4.8-10.8) K/uL RBC 4.82 (3.80-5.20) Mil/uL Hgb 14.5 (11.0-16.0) g/dL Hct 43.1 (34.0-47.0) % MCV 89.4 (81.0-99.0) fL MCH 30.0 (27.0-31.0) pg MCHC 33.6 (33.0-37.0) g/dL RDW 13.3 (11.5-14.5) % Plt Count 303 (130-400) K/uL MPV 7.0 L (7.2-11.7) fL Neut % (Auto) 84.2 H (50.0-75.0) % Lymph % (Auto) 5.4 L (20.0-40.0) % [place] % (Auto) 9.5 (0.0-10.0) % Eos % (Auto) 0.3 (0.0-4.0) % Baso % (Auto) 0.6 (0.0-2.0) % Neut # 10.3 H (1.8-7.0) K/uL Lymph # 0.7 L (1.0-4.3) K/uL [place] # 1.2 H (0.0-0.8) K/uL Eos # 0.0 (0.0-0.7) K/uL Baso # 0.1 (0.0-0.2) K/uL Neutrophils % (Manual) 75 (50-75) % Lymphocytes % (Manual) 8 L (20-40) % Monocytes % (Manual) 16 H (0-10) % Basophils % (Manual) 1 (0-2) % Platelet Estimate Normal (NORMAL) RBC Morphology Normal Sodium 136 (132-148) mmol/L Potassium 3.9 (3.6-5.2) mmol/L Chloride 100 (98-107) mmol/L Carbon Dioxide 28 (22-30) mmol/L Anion Gap 13 (10-20) BUN 14 (7-17) mg/dL Creatinine 0.4 L (0.7-1.2) MG/DL Est GFR ( Amer) > 60 Est GFR (Non-Af Amer) > 60 Random Glucose 117 H (65-105) mg/dL Calcium 8.6 (8.6-10.4) mg/dl Phosphorus 4.0 (2.5-4.5) mg/dL Magnesium 2.0 (1.6-2.3) mg/dL Total Bilirubin 1.0 (0.2-1.3) mg/dL AST 38 H (14-36) U/L ALT 32 (9-52) U/L Alkaline Phosphatase 73 (38-126) U/L Total Protein 6.4 (6.3-8.3) g/dL Albumin 3.5 (3.5-5.0) g/dL Globulin 2.9 (2.2-3.9) gm/dL Albumin/Globulin Ratio 1.2 (1.0-2.1) Laboratory Results - last 24 hr 03/20/17 03/21/17 03/21/17 06:29 06:24 06:27 WBC 12.2 H RBC 4.82 Hgb 14.5 Hct 43.1 MCV 89.4 MCH 30.0 MCHC 33.6 RDW 13.3 Plt Count 303 MPV 7.0 L Neut % (Auto) 84.2 H Lymph % (Auto) 5.4 L [place] % (Auto) 9.5 Eos % (Auto) 0.3 Baso % (Auto) 0.6 Neut # 10.3 H Lymph # 0.7 L [place] # 1.2 H Eos # 0.0 Baso # 0.1 Neutrophils % (Manual) 75 Lymphocytes % (Manual) 8 L Monocytes % (Manual) 16 H Basophils % (Manual) 1 Platelet Estimate Normal RBC Morphology Normal Sodium 136 Potassium 3.9 Chloride 100 Carbon Dioxide 28 Anion Gap 13 BUN 14 Creatinine 0.4 L Est GFR ( Amer) > 60 Est GFR (Non-Af Amer) > 60 Random Glucose 117 H Calcium 8.6 Phosphorus 4.0 Magnesium 2.0 Total Bilirubin 1.0 AST 38 H ALT 32 Alkaline Phosphatase 73 Total Protein 6.4 Albumin 3.5 Globulin 2.9 Albumin/Globulin Ratio 1.2 Fingerstick Blood Sugar Results: 111 Review of Systems - Review of Systems Systems not reviewed;Unavailable: Altered Mental Status Assessment/Plan - Assessment and Plan (Free Text) Assessment: 81 yo female with hx A-fib, HTN, HLD, DVT, COPD, Osteoporosis, L hip ORIF. presented to ED after family noted altered MS and Right facial droop this afternoon. Pt recently had epistaxis and rectal bleed and coumadin was d/c'd x 1 week. Pt speech is incomprehensible and unable to give hx. In ED pt in rapid A -fib treated with cardizem and metoprolol. CT showed large left temporal bleed , with repeat showing worsening midline shift. Neurosurgery said no intervention. Plan: Pt Status: Transfer pt to med/surg, DNR/DNI Neuro: Altered mental status - secondary to intracerebral hemorrhage - CT Head (03/16/17): CODE STROKE: Acute left temporal lobe hemorrhage and adjacent subarachnoid hemorrhage. (see full report) - Repeat CT Head (03/17/17): Increased size of large left temporal and parietal hematoma. Marked increase of mass effect with compression of left lateral ventricle particularly the left temporal horn and shift of septum pellucidum from left to right. (see full report) - Repeat CT Head #2 (03/19/17): Redemonstration of large heterogenous intraparenchymal hemorrhage at left temporal and parietal lobe. Worsening of surrounding edema and mass effect as well as left to right midline shift compared to previous exam. Effacement of left basilar cistern. Concerning findings for subfalcine and mild transtentorial herniation. (see full report) Neurosurgery consult: Dr. Morrell/Tenzin, help appreciated - Patient is NOT a good candidate for any kind of surgical intervention. - Continue supportive care Neuro Consult: Dr. Gaffney, help appreciated - After results of CT Head #2, gave FFP and Mannitol once - MAP around 100 - Recommend PEG tube placement for long-term nutrition - f/u EEG, Repeat CT Head - Transfer pt to med/surg Pulm: No acute issues, maintaining airway, breathing spontaneously on nasal cannula oxygen. O2 sat: 98% on 3 L CV: Hemodynamically stable, patient was intermittently on cardene drip for blood pressure control. Cardiology consult: Dr. Ferguson, help appreciated - f/u ECHO Hx of Afib - Continue Home Digoxin 0.125mg IV Daily -CHADs2-Vasc2: 6 pts (Criteria: >75: 2pts, Sex: Female +1 pt, HTN hx +1pt, Stroke +2pts) - Anticoagulation C/I due to current bleed -HAS-BLED: 3pts (Criteria: Stroke Hx +1pt, Age >65 +1pt, Medication usage predisposing to bleeding +1pt) - total: 3pts - consider alternative to anticoagulation Hypokalemia - Resolved, 3.9 on AM labs - KCl 20 meq in NS @ 60cc/hr IV ENDO: Hgb A1c: 5.5 Hem: Pt on Coumadin at home, but had stopped one week prior due to nose/rectal bleeding No coagulopathy at present Renal/: Urine output within normal limits. bose for strict I/O's during acute illness Hypophosphatemia - Resolved, 4 on AM labs - Continue Neutraphos GI: NGT to start tube feeds - isosource@20, goal 40 Constipation - per family, no BM x 5 days - Miralax ONCE MSKLTL: - RUE flaccid, - US Venous Doppler B/l LE: negative b/l - f/u PT eval Integumentary: sacral ulcers: Stage 1, Stage 2 Wound care consult - Aloe vesta 3x daily to entire sacral region - reposition frequently ID: Leukocytosis: 12.1 today, from 12.7 yesterday - Left shift improving, with no bands CXR (03/16/17): Cardiomegaly. Evidence of prior granulomatous infection. (see full report) Prophylaxis: DVT proph - no anticoagulation with current bleed, SCDs GI proph - Pepcid 20mg IV Daily <Godfrey Rowell S - Last Filed: 03/21/17 18:25> CCU Subjective - Physician Review Critical Care Time Spent (in minutes): 30 CCU Objective - Vital Signs / Intake & Output Vital Signs (Last 4 hours): Vital Signs Temp Pulse Resp BP Pulse Ox 03/21/17 17:20 95 H 27 H 97 03/21/17 17:10 95 H 28 H 97 03/21/17 17:04 92 H 26 H 136/81 98 03/21/17 17:00 97 H 26 H 97 03/21/17 16:50 103 H 26 H 97 03/21/17 16:40 94 H 27 H 97 03/21/17 16:30 88 23 98 03/21/17 16:20 94 H 24 98 03/21/17 16:10 99 H 24 98 03/21/17 16:04 96 H 25 H 146/86 98 03/21/17 16:00 98.8 F 93 H 27 H 98 03/21/17 15:50 81 22 99 03/21/17 15:40 90 27 H 98 03/21/17 15:30 82 20 98 03/21/17 15:20 80 20 98 03/21/17 15:10 80 22 98 03/21/17 15:04 81 22 152/89 H 98 03/21/17 15:00 88 20 97 03/21/17 14:50 83 21 98 03/21/17 14:40 99 H 25 H 98 03/21/17 14:30 118 H 33 H 97 Intake and Output (Last 8hrs): Intake & Output 03/21/17 03/21/17 03/21/17 06:59 14:59 22:59 Intake Total 900 850 300 Output Total 450 620 140 Balance 450 230 160 Weight 135 lb 12.8 oz Intake: Intake, IV Amount 480 480 180 Right Hand 480 480 180 Tube Feeding 320 320 120 Other 100 50 Output: Urine 450 620 140 Urethral (Bose) 450 620 140 Other: # Bowel Movements 0 0 0 - Medications Active Medications: Active Medications Generic Name Dose Route Start Last Admin Trade Name Freq PRN Reason Stop Dose Admin Acetaminophen 650 mg 03/18/17 16:13 03/18/17 16:50 Tylenol 325mg Tab PO 650 mg Q6 PRN Administration Fever >100.4 F Digoxin 0.125 mg 03/17/17 18:00 03/21/17 17:06 Lanoxin IVP 0.125 mg Q24H EMILIE Administration Famotidine 20 mg 03/17/17 10:00 03/21/17 09:50 Pepcid IVP 20 mg DAILY EMILIE Administration Potassium Chloride 10 meq/ 1,005 mls @ 60 mls/hr 03/20/17 18:56 03/21/17 15: 07 Sodium Chloride IV 60 mls/hr .[id number] EMILIE Administration Potassium Phos/Sodium Phos 1 pkt 03/20/17 15:45 03/21/17 13:14 Neutra-Phos PO 1 pkt Q8 EMILIE Administration - Patient Studies Lab Studies: Lab Studies 03/21/17 03/21/17 03/21/17 Range/Units 08:48 06:27 06:24 WBC 12.2 H (4.8-10.8) K/uL RBC 4.82 (3.80-5.20) Mil/uL Hgb 14.5 (11.0-16.0) g/dL Hct 43.1 (34.0-47.0) % MCV 89.4 (81.0-99.0) fL MCH 30.0 (27.0-31.0) pg MCHC 33.6 (33.0-37.0) g/dL RDW 13.3 (11.5-14.5) % Plt Count 303 (130-400) K/uL MPV 7.0 L (7.2-11.7) fL Neut % (Auto) 84.2 H (50.0-75.0) % Lymph % (Auto) 5.4 L (20.0-40.0) % [place] % (Auto) 9.5 (0.0-10.0) % Eos % (Auto) 0.3 (0.0-4.0) % Baso % (Auto) 0.6 (0.0-2.0) % Neut # 10.3 H (1.8-7.0) K/uL Lymph # 0.7 L (1.0-4.3) K/uL [place] # 1.2 H (0.0-0.8) K/uL Eos # 0.0 (0.0-0.7) K/uL Baso # 0.1 (0.0-0.2) K/uL Neutrophils % (Manual) 84 H (50-75) % Lymphocytes % (Manual) 7 L (20-40) % Monocytes % (Manual) 8 (0-10) % Eosinophils % (Manual) 1 (0-4) % Platelet Estimate Normal (NORMAL) RBC Morphology Normal Sodium 136 (132-148) mmol/L Potassium 3.9 (3.6-5.2) mmol/L Chloride 100 (98-107) mmol/L Carbon Dioxide 28 (22-30) mmol/L Anion Gap 13 (10-20) BUN 14 (7-17) mg/dL Creatinine 0.4 L (0.7-1.2) MG/DL Est GFR ( Amer) > 60 Est GFR (Non-Af Amer) > 60 Random Glucose 117 H (65-105) mg/dL Calcium 8.6 (8.6-10.4) mg/dl Phosphorus 4.0 (2.5-4.5) mg/dL Magnesium 2.0 (1.6-2.3) mg/dL Total Bilirubin 1.0 (0.2-1.3) mg/dL AST 38 H (14-36) U/L ALT 32 (9-52) U/L Alkaline Phosphatase 73 (38-126) U/L Total Protein 6.4 (6.3-8.3) g/dL Albumin 3.5 (3.5-5.0) g/dL Globulin 2.9 (2.2-3.9) gm/dL Albumin/Globulin Ratio 1.2 (1.0-2.1) Urine Color Yellow (YELLOW) Urine Clarity Hazy (Clear) Urine pH 7.0 (5.0-8.0) Ur Specific [place] 1.017 (1.003-1.030) Urine Protein Negative (NEGATIVE) mg/dL Urine Glucose (UA) Normal (Normal) mg/dL Urine Ketones Negative (NEGATIVE) mg/dL Urine Blood 1+ H (NEGATIVE) Urine Nitrate Negative (NEGATIVE) Urine Bilirubin Negative (NEGATIVE) Urine Urobilinogen 4.0 H (0.2-1.0) mg/dL Ur Leukocyte Esterase Trace (Negative) [place]/uL Urine WBC (Auto) 9 H (0-5) /hpf Urine RBC (Auto) 35 H (0-3) /hpf Amorphous Sediment Rare H (<OCC) /ul Urine Bacteria Occ H (<OCC) Laboratory Results - last 24 hr 03/21/17 03/21/17 03/21/17 06:24 06:27 08:48 WBC 12.2 H RBC 4.82 Hgb 14.5 Hct 43.1 MCV 89.4 MCH 30.0 MCHC 33.6 RDW 13.3 Plt Count 303 MPV 7.0 L Neut % (Auto) 84.2 H Lymph % (Auto) 5.4 L [place] % (Auto) 9.5 Eos % (Auto) 0.3 Baso % (Auto) 0.6 Neut # 10.3 H Lymph # 0.7 L [place] # 1.2 H Eos # 0.0 Baso # 0.1 Neutrophils % (Manual) 84 H Lymphocytes % (Manual) 7 L Monocytes % (Manual) 8 Eosinophils % (Manual) 1 Platelet Estimate Normal RBC Morphology Normal Sodium 136 Potassium 3.9 Chloride 100 Carbon Dioxide 28 Anion Gap 13 BUN 14 Creatinine 0.4 L Est GFR ( Amer) > 60 Est GFR (Non-Af Amer) > 60 Random Glucose 117 H Calcium 8.6 Phosphorus 4.0 Magnesium 2.0 Total Bilirubin 1.0 AST 38 H ALT 32 Alkaline Phosphatase 73 Total Protein 6.4 Albumin 3.5 Globulin 2.9 Albumin/Globulin Ratio 1.2 Urine Color Yellow Urine Clarity Hazy Urine pH 7.0 Ur Specific [place] 1.017 Urine Protein Negative Urine Glucose (UA) Normal Urine Ketones Negative Urine Blood 1+ H Urine Nitrate Negative Urine Bilirubin Negative Urine Urobilinogen 4.0 H Ur Leukocyte Esterase Trace Urine WBC (Auto) 9 H Urine RBC (Auto) 35 H Amorphous Sediment Rare H Urine Bacteria Occ H Attending/Attestation - Attestation I have personally seen and examined this patient.: Yes I have fully participated in the care of the patient.: Yes I have reviewed all pertinent clinical information: Yes Notes (Text): 03/21/17 18:24 Patient seen and examined in the intensive care unit. Case discussed with house staff in the morning rounds. No change in mental status and repeat CAT scan of the head noted Case discussed with neurology No neurosurgical intervention Transfer to floor patient DNR/DNI
[2017-03-21 08:55] LABS: EOSINOPHIL 1 % (0-4); NEUTROPHIL 84 % (50-75); TOTAL CELLS COUNTED 100
--- NOTE | 2017-03-21 09:01 | CARD ---
APPROVED REPORT EKG Measurement Heart [id number] <Conclusion> Atrial fibrillation with rapid ventricular response with premature ventricular or aberrantly conducted complexes Left axis deviation Nonspecific ST and T wave abnormality Abnormal ECG
[2017-03-21 09:03] LABS: RBC URINE 35 /hpf (0-3); URINE BACTERIA OCC (<OCC); URINE BILIRUBIN NEGATIVE (NEGATIVE); URINE BLOOD 1+ (NEGATIVE); URINE COLOR Yellow (YELLOW); URINE GLUCOSE (UA) NORMAL (Normal); URINE KETONE NEGATIVE (NEGATIVE); URINE LEUKOCYTE ESTERASE TRACE Leu/uL (Negative); URINE PROTEIN NEGATIVE (NEGATIVE); WBC URINE 9 /hpf (0-5)
--- NOTE | 2017-03-21 10:17 | CP.PCM.PN ---
<Onesimo Payan - Last Filed: 03/21/17 10:15> Subjective - Date & Time of Evaluation Date of Evaluation: 03/21/17 Time of Evaluation: 10:15 - Subjective Subjective: Cardiology Progress Note Dr. Kelly (covering for Dr. Ferguson) Patient seen and examined at the bedside. No acute distress. No acute events overnight. Nursing staff reports no issues. The patient remains at baseline per discussion with the nursing staff and critical care team. No interval change from prior examination. EEG preformed at bedside yesterday 03/19/17. Patient remains unable to follow commands. ROS unable to be obtained at this time. Objective - Vital Signs/Intake and Output Vital Signs (last 24 hours): Temp Pulse Resp BP Pulse Ox 98 F 86 24 139/87 98 03/21/17 08:00 03/21/17 08:40 03/21/17 08:40 03/21/17 08:04 03/21/17 08:40 Intake and Output: 03/21/17 03/21/17 06:59 18:59 Intake Total 1500 200 Output Total 600 195 Balance 900 5 - Medications Medications: Current Medications Acetaminophen (Tylenol 325mg Tab) 650 mg PO Q6 PRN PRN Reason: Fever >100.4 F Last Admin: 03/18/17 16:50 Dose: 650 mg Digoxin (Lanoxin) 0.125 mg IVP Q24H [facility] Last Admin: 03/20/17 17:19 Dose: 0.125 mg Famotidine (Pepcid) 20 mg IVP DAILY [facility] Last Admin: 03/21/17 09:50 Dose: 20 mg Potassium Chloride 10 meq/ (Sodium Chloride) 1,005 mls @ 60 mls/hr IV .[id number] [facility] Last Admin: 03/20/17 21:21 Dose: 60 mls/hr Potassium Phos/Sodium Phos (Neutra-Phos) 1 pkt PO Q8 [facility] Last Admin: 03/21/17 06:30 Dose: 1 pkt - Labs Labs: 03/21/17 06:24 03/21/17 06:27 PT 14.1 SECONDS (9.7-12.2) H 03/17/17 06:06 INR 1.3 03/17/17 06:06 APTT 31 SECONDS (21-34) 03/17/17 06:06 - Additional Findings Additional findings: - Constitutional Appears: Chronically Ill - Head Exam Head Exam: ATRAUMATIC, NORMAL INSPECTION, NORMOCEPHALIC - Eye Exam Eye Exam: absent: Nystagmus - ENT Exam ENT Exam: Mucous Membranes Moist, Normal Exam - Neck Exam Neck Exam: Normal Inspection - Respiratory Exam Respiratory Exam: Clear to Ausculation Bilateral, NORMAL BREATHING PATTERN. absent: Rales, Rhonchi, Wheezes, Stridor - Cardiovascular Exam Cardiovascular Exam: Tachycardia, Irregular Rhythm (irregularly), +S1, +S2. absent: Diastolic murmur, REGULAR RHYTHM, RRR, Murmur - GI/Abdominal Exam GI & Abdominal Exam: Soft, Normal Bowel Sounds. absent: Guarding, Rigid, Tenderness - Extremities Exam Extremities Exam: Normal Inspection - Neurological Exam Neurological Exam: Altered Neuro motor strength exam: Left Upper Extremity: 5, Right Upper Extremity: 0, Left Lower Extremity: 5, Right Lower Extremity: 0 - Skin Skin Exam: Dry, Intact, Normal Color, Warm Assessment and Plan (1) Hemorrhagic stroke Assessment & Plan: continue supportive care and medical management per ICU team Anticoagulation contraindicated 2/2 to worsening intraparenchymal hemorrhage 03/19/17 CT Head- Re- demonstration of large heterogeneous intraparenchymal hemorrhage at the left temporal and parietal lobe. Interval further worsening of surrounding edema and mass effect as well as [id number] midline shift compared to the previous exam. Effacement of the left basilar cistern. Findings are concern for subfalcine and mild transtentorial herniation. Diffuse effacement of the sulci at the left brain. Status: Acute (2) A-fib Assessment & Plan: HAS-BLED: 3 (high risk for anticoagulation) [id number]: Score 8 hold anticoagulation 2/2 to hemorrhagic stroke continue rate control with digoxin 0.125mg IV daily 03/16/17 EKG- A-fib with RVR (112bpm), occasional PVC, normal QRS duration, prolonged QTc, left axis deviation, non specific ST/T wave changes 01/23/15 Echo- normal systolic (EF- 74%) and diastolic function, mild mitral regurgitation Status: Chronic <Juan Pablo Kelly A - Last Filed: 04/30/17 04:49> Objective - Vital Signs/Intake and Output Vital Signs (last 24 hours): Temp Pulse Resp BP Pulse Ox 98.4 F 90 20 126/77 97 03/29/17 15:41 03/29/17 15:41 03/29/17 15:41 03/29/17 15:41 03/29/17 15:41 - Labs Labs: 03/29/17 14:13 03/29/17 14:13 PT 14.8 SECONDS (9.7-12.2) H 03/27/17 11:54 INR 1.3 03/27/17 11:54 APTT 31 SECONDS (21-34) 03/17/17 06:06 Assessment and Plan (1) Hip fracture, left Status: Acute (2) Intracranial bleed Status: Acute Attending/Attestation - Attestation I have personally seen and examined this patient.: Yes I have fully participated in the care of the patient.: Yes I have reviewed all pertinent clinical information, including history, physical exam and plan: Yes Notes (Text): 04/30/17 04:49 unable to follow commands neuro following
--- NOTE | 2017-03-21 11:51 | CT ---
PROCEDURE: CT HEAD WITHOUT CONTRAST. HISTORY: to assess her ICH COMPARISON: Comparison is made to the previous study dated 03/19/2017 TECHNIQUE: Axial computed tomography images were obtained through the head/brain without intravenous contrast. Radiation dose: Total exam DLP = 784.95 mGy-cm. This CT exam was performed using one or more of the following dose reduction techniques: Automated exposure control, adjustment of the mA and/or kV according to patient size, and/or use of iterative reconstruction technique. FINDINGS: HEMORRHAGE: Again seen is intraparenchymal hemorrhage at the left temporal parietal lobes. No significant interval change in the size of the intraparenchymal hemorrhage since the previous exam. BRAIN: Again seen is surrounding edema around the intraparenchymal hemorrhage at the left brain. There is mass effect and midline shift is again noted measures approximately 9.5 millimeter. No significant interval change otherwise noted since the previous exam. VENTRICLES: There is a small amount of intraventricular hemorrhage at the left lateral ventricle again noted. No significant interval change in the size of the ventricles compared to the previous exam. The possibility of subfalcine herniation is again should be considered. CALVARIUM: Unremarkable. PARANASAL SINUSES: Jdsh-cl-wgyknrrc sinuses mucosal disease more prominent at the right sphenoid sinus is again noted. MASTOID AIR CELLS: Unremarkable as visualized. No inflammatory changes. OTHER FINDINGS: None. IMPRESSION: Stable left brain intraparenchymal hemorrhage surrounding with edema and resulting in mass effect on the lateral ventricles and approximately 9.5 millimeter [id number] midline shift . No significant interval change when compared to the previous exam.
--- NOTE | 2017-03-21 13:31 | CARD ---
APPROVED REPORT EXAM: Two-dimensional and M-mode echocardiogram with Doppler and color Doppler. Other Information Quality : GoodRhythm : NSR INDICATION CVA/TIA Atrial Fibrillation COPD RISK FACTORS Hypertension Hyperlipidemia M-Mode DIMENSIONS RVDd1.50 (2.1-3.2cm)Left Atrium (MM)4.36 (2.5-4.0cm) IVSd0.62 (0.7-1.1cm)Aortic Root2.83 (2.2-3.7cm) LVDd4.03 (4.0-5.6cm)Aortic Cusp Exc.2.02 (1.5-2.0cm) PWd0.78 (0.7-1.1cm)FS (%) 22 % LVDs3.16 (2.0-3.8cm)LVEF (%)45 (>50%) Mitral Valve MV E Hvpfmhvd60.1cm/sMV A Yvueuaed52.4cm/sE/A ratio1.9 TDI E/Lateral E'0.0E/Medial E'0.0 Tricuspid Valve TR Peak Evbzpsdc484sn/sTR Peak Gr.[id number] LEFT VENTRICLE The left ventricle is normal size. There is normal left ventricular wall thickness. visual estimation of The Ejection Fraction is 45-50%. moderately increased la volume index. pt appears to be in a.fib,with dilated la,increased la volume index & pulmonary hypertension is suggestive of moderate degree of lv diastolic dysfunciton. RIGHT VENTRICLE The right ventricle is mildly dilated. Systolic function is mildly reduced. ATRIA The left atrium is moderately dilated. The right atrium is mildly dilated. AORTIC VALVE aortic valve not well seen.appears sclerotic. No aortic regurgitation is present. MITRAL VALVE The mitral valve is normal in structure. Mitral regurgitation is mild. TRICUSPID VALVE The tricuspid valve is normal in structure. There is mild to moderate tricuspid regurgitation. There is mild to moderate tricuspid regurgitation. Right ventricular systolic pressure is estimated at 36 mmHg. There is mild pulmonary hypertension. PULMONIC VALVE The pulmonary valve is normal in structure. There is trace pulmonic valvular regurgitation. GREAT VESSELS The aortic root is normal size. The aortic root displays mild sclerocalcific changes of the aortic root. normal size ivc with poor inspiratory collapse.elevated ra pressures. PERICARDIAL EFFUSION There is no pericardial effusion. <Conclusion> moderately increased la volume index. pt appears to be in a.fib,with dilated la,increased la volume index & pulmonary hypertension is suggestive of moderate degree of lv diastolic dysfunciton. The right ventricle is mildly dilated. The right ventricle is mildly dilated. Systolic function is mildly reduced. The left atrium is moderately dilated. Mitral regurgitation is mild. There is mild to moderate tricuspid regurgitation. normal size ivc with poor inspiratory collapse.elevated ra pressures.
[2017-03-21] MEDS: Digoxin 500 mcg/2ml (0.5 mg/2ml) Inj IVP SCH (17:06)
--- NOTE | 2017-03-21 19:47 | CP.PCM.PN ---
Subjective - Date & Time of Evaluation Date of Evaluation: 03/21/17 Time of Evaluation: 08:30 - Subjective Subjective: Patient seen, in ICU - remained alert,responds to call some spontaneous movement of left side ,but non verbal, confused, but not in distress Objective - Vital Signs/Intake and Output Vital Signs (last 24 hours): Temp Pulse Resp BP Pulse Ox 98.8 F 84 21 130/93 H 99 03/21/17 16:00 03/21/17 19:20 03/21/17 19:20 03/21/17 19:04 03/21/17 19:20 Intake and Output: 03/21/17 03/22/17 18:59 06:59 Intake Total 1300 100 Output Total 830 70 Balance 470 30 - Medications Medications: Current Medications Acetaminophen (Tylenol 325mg Tab) 650 mg PO Q6 PRN PRN Reason: Fever >100.4 F Last Admin: 03/18/17 16:50 Dose: 650 mg Digoxin (Lanoxin) 0.125 mg IVP Q24H [facility] Last Admin: 03/21/17 17:06 Dose: 0.125 mg Famotidine (Pepcid) 20 mg IVP DAILY [facility] Last Admin: 03/21/17 09:50 Dose: 20 mg Potassium Chloride 10 meq/ (Sodium Chloride) 1,005 mls @ 60 mls/hr IV .[id number] [facility] Last Admin: 03/21/17 15:07 Dose: 60 mls/hr Potassium Phos/Sodium Phos (Neutra-Phos) 1 pkt PO Q8 [facility] Last Admin: 03/21/17 13:14 Dose: 1 pkt - Labs Labs: 03/21/17 06:24 03/21/17 06:27 PT 14.1 SECONDS (9.7-12.2) H 03/17/17 06:06 INR 1.3 03/17/17 06:06 APTT 31 SECONDS (21-34) 03/17/17 06:06 - Constitutional Appears: No Acute Distress, Other (responds to call but slow, non verbal, ) - Head Exam Head Exam: ATRAUMATIC, NORMOCEPHALIC - Eye Exam Eye Exam: Normal appearance. absent: Nystagmus - ENT Exam ENT Exam: Mucous Membranes Moist - Neck Exam Neck Exam: absent: Meningismus - Respiratory Exam Respiratory Exam: Clear to Ausculation Bilateral, NORMAL BREATHING PATTERN - Cardiovascular Exam Cardiovascular Exam: Irregular Rhythm - GI/Abdominal Exam GI & Abdominal Exam: Soft, Normal Bowel Sounds - Extremities Exam Extremities Exam: absent: Joint Swelling, Pedal Edema - Back Exam Back Exam: rash noted ( small rectal area) - Neurological Exam Neurological Exam: absent: Oriented x3 (does not follow command ) Neuro motor strength exam: Left Upper Extremity: 5 (spontaneous movement ), Right Upper Extremity: 0, Left Lower Extremity: 5 (spontaneous movement ), Right Lower Extremity: 0 - Skin Skin Exam: Intact (other than the sacral area ), Normal Color Assessment and Plan - Assessment and Plan (Free Text) Assessment: Patient with Hemorrhagic stroke - repeat Ct scan remained the same, but no sign of worsening, clinically patient is turns head to call, episodic movemnet of left extremeties, no distress awake but non verbal, does not follow commands, guarded conditon - family aware- not good candidate for surgery supportive care AFIB- Hypertension Medication ,Monitoring , Urinalysis-persistently abnormal- will try antibiotic ,afebrile, awaiting culture
[2017-03-21] MEDS: Ciprofloxacin 400mg/200ml D5W 400 MG/200 ML BAG IVPB SCH (21:41)
[2017-03-22] MEDS: Potassium & Sodium Phosphate PO SCH ×3 (06:25→22:28)
--- NOTE | 2017-03-22 07:23 | PN ---
DATE: 03/22/2017 NEUROLOGICAL PROBLEM: Dominant hemispheric left temporal lobe hemorrhage manifesting with Wernicke a phasia, right hemiplegia with right homonymous hemianopsia. The patient is more sleepy, arousable on tactile stimuli, forcibly opening the eyelid, pupil reactive to light. Roving conjugate gaze. Good corneal reflex. Spontaneous movement on the left side as no yony before. The rest of the examination is unchanged. Her electroencephalogram was reviewed, showed focal slowing over the dominant hemispheric region, par ticularly over the temporoparietal occipital region. There are no paroxysmal activities noted. The patient is getting IV fluids, no antiplatelets at present. On NG feeding. The patient can be benefited with PEG placement to improve her nutritional status. The patient will be started on modafinil to improve her wakefulness. The patient will be followed cl osely with you. Nelson Gaffney MD cc: [id number] TT: 03/22/2017 07:22:37 Confirmation # [id number] Dictation # [id number] tn
--- NOTE | 2017-03-22 09:23 | EEG ---
DATE: 03/20/2017 This is a 16-channel electroencephalogram of awake and confused adult. The study was performed at th e bedside in the unit. The resting electroencephalogram consists of 20-30 microvolts. Diffuse high theta activities noted a t the right parietooccipital leads. On her left side, the activities were somewhat decreased to form high delta activities noted on her left parietooccipital leads. Later, the study was showing high a mplitude delta activities, which are consistent with drowsiness. The photic stimulation did not evok e driving response noted at 2-20 Hz. IMPRESSION: This is an abnormal electroencephalogram because of persistent slowing throughout the re cord suggestive of bilateral cerebral dysfunction. This is probably secondary to metabolic vascular or degenerative process. Considering the history, the focal slowing over her left parietooccipital l keaton is consistent with a structural intracranial pathology (intracerebral bleed). During the study, no paroxysmal activities are noted. Nelson Gaffney MD cc: [id number] TT: 03/22/2017 09:23:06 Confirmation # [id number] Dictation # [id number] tianna
--- NOTE | 2017-03-22 10:09 | CP.PCM.PN ---
<Onesimo Payan - Last Filed: 03/22/17 10:07> Subjective - Date & Time of Evaluation Date of Evaluation: 03/22/17 Time of Evaluation: 10:07 - Subjective Subjective: Cardiology Progress Note Dr. Kelly (covering for Dr. Ferguson) Patient seen and examined at the bedside. No acute distress. No acute events overnight. Nursing staff reports no issues. The patient remains at baseline. No interval change from prior examination. Patient minimally able to follow commands. Patient is responding, although inappropriate to conversation. ROS unable to be obtained at this time due to AMS. Objective - Vital Signs/Intake and Output Vital Signs (last 24 hours): Temp Pulse Resp BP Pulse Ox 98.4 F 82 20 140/94 H 98 03/22/17 07:00 03/22/17 07:00 03/22/17 07:00 03/22/17 07:00 03/22/17 07:00 Intake and Output: 03/22/17 03/22/17 06:59 18:59 Intake Total 970 420 Output Total 1020 Balance -50 420 - Medications Medications: Current Medications Acetaminophen (Tylenol 325mg Tab) 650 mg PO Q6 PRN PRN Reason: Fever >100.4 F Last Admin: 03/18/17 16:50 Dose: 650 mg Digoxin (Lanoxin) 0.125 mg IVP Q24H [facility] Last Admin: 03/21/17 17:06 Dose: 0.125 mg Famotidine (Pepcid) 20 mg IVP DAILY [facility] Last Admin: 03/22/17 09:56 Dose: 20 mg Potassium Chloride 10 meq/ (Sodium Chloride) 1,005 mls @ 60 mls/hr IV .[id number] [facility] Last Admin: 03/22/17 04:26 Dose: Not Given Ciprofloxacin (Cipro 400mg/200ml Dsw) 400 mg in 200 mls @ 133 mls/hr IVPB DAILY @2200 [facility] Last Admin: 03/21/17 21:41 Dose: 133 mls/hr Modafinil (Provigil) 100 mg PO DAILY [facility] Last Admin: 03/22/17 09:56 Dose: 100 mg Potassium Phos/Sodium Phos (Neutra-Phos) 1 pkt PO Q8 [facility] Last Admin: 03/22/17 06:25 Dose: 1 pkt - Labs Labs: 03/21/17 06:24 03/21/17 06:27 PT 14.1 SECONDS (9.7-12.2) H 03/17/17 06:06 INR 1.3 03/17/17 06:06 APTT 31 SECONDS (21-34) 03/17/17 06:06 - Additional Findings Additional findings: - Constitutional Appears: Chronically Ill - Head Exam Head Exam: ATRAUMATIC, NORMAL INSPECTION, NORMOCEPHALIC - Eye Exam Eye Exam: absent: Nystagmus - ENT Exam ENT Exam: Mucous Membranes Moist, Normal Exam - Neck Exam Neck Exam: Normal Inspection - Respiratory Exam Respiratory Exam: Clear to Ausculation Bilateral, NORMAL BREATHING PATTERN. absent: Rales, Rhonchi, Wheezes, Stridor - Cardiovascular Exam Cardiovascular Exam: Tachycardia, Irregular Rhythm (irregularly), +S1, +S2. absent: Diastolic murmur, REGULAR RHYTHM, RRR, Murmur - GI/Abdominal Exam GI & Abdominal Exam: Soft, Normal Bowel Sounds. absent: Guarding, Rigid, Tenderness - Extremities Exam Extremities Exam: Normal Inspection - Neurological Exam Neurological Exam: Altered Neuro motor strength exam: Left Upper Extremity: 5, Right Upper Extremity: 0, Left Lower Extremity: 5, Right Lower Extremity: 0 - Skin Skin Exam: Dry, Intact, Normal Color, Warm Assessment and Plan (1) Hemorrhagic stroke Assessment & Plan: continue supportive care and medical management per ICU team Anticoagulation contraindicated 2/2 to worsening intraparenchymal hemorrhage 03/19/17 CT Head- Re- demonstration of large heterogeneous intraparenchymal hemorrhage at the left temporal and parietal lobe. Interval further worsening of surrounding edema and mass effect as well as [id number] midline shift compared to the previous exam. Effacement of the left basilar cistern. Findings are concern for subfalcine and mild transtentorial herniation. Diffuse effacement of the sulci at the left brain. Status: Acute (2) A-fib Assessment & Plan: HAS-BLED: 3 (high risk for anticoagulation) [id number]: Score 8 hold anticoagulation 2/2 to hemorrhagic stroke continue rate control with digoxin 0.125mg IV daily 03/16/17 EKG- A-fib with RVR (112bpm), occasional PVC, normal QRS duration, prolonged QTc, left axis deviation, non specific ST/T wave changes 01/23/15 Echo- normal systolic (EF- 74%) and diastolic function, mild mitral regurgitation Status: Chronic <Juan Pablo Kelly - Last Filed: 04/30/17 04:48> Objective - Vital Signs/Intake and Output Vital Signs (last 24 hours): Temp Pulse Resp BP Pulse Ox 98.4 F 90 20 126/77 97 03/29/17 15:41 03/29/17 15:41 03/29/17 15:41 03/29/17 15:41 03/29/17 15:41 - Labs Labs: 03/29/17 14:13 03/29/17 14:13 PT 14.8 SECONDS (9.7-12.2) H 03/27/17 11:54 INR 1.3 03/27/17 11:54 APTT 31 SECONDS (21-34) 03/17/17 06:06 Assessment and Plan (1) Hip fracture, left Status: Acute (2) Intracranial bleed Status: Acute Attending/Attestation - Attestation I have personally seen and examined this patient.: Yes I have fully participated in the care of the patient.: Yes I have reviewed all pertinent clinical information, including history, physical exam and plan: Yes Notes (Text): 04/30/17 04:48 hold a/c due to hemmoragic stroke ams
--- NOTE | 2017-03-22 12:25 | CP.PCM.PN ---
Subjective - Date & Time of Evaluation Date of Evaluation: 03/22/17 Time of Evaluation: 03:00 - Subjective Subjective: Patient seen in the floor, sleeping , arousable, non verbal does not comunicate , not following commands, no interaction but heads turn lef side e with spontaneous movement no acute events Objective - Vital Signs/Intake and Output Vital Signs (last 24 hours): Temp Pulse Resp BP Pulse Ox 98.4 F 82 20 140/94 H 98 03/22/17 07:00 03/22/17 07:00 03/22/17 07:00 03/22/17 07:00 03/22/17 07:00 Intake and Output: 03/22/17 03/22/17 06:59 18:59 Intake Total 970 420 Output Total 1020 Balance -50 420 - Medications Medications: Current Medications Acetaminophen (Tylenol 325mg Tab) 650 mg PO Q6 PRN PRN Reason: Fever >100.4 F Last Admin: 03/18/17 16:50 Dose: 650 mg Digoxin (Lanoxin) 0.125 mg IVP Q24H [facility] Last Admin: 03/21/17 17:06 Dose: 0.125 mg Famotidine (Pepcid) 20 mg IVP DAILY [facility] Last Admin: 03/22/17 09:56 Dose: 20 mg Potassium Chloride 10 meq/ (Sodium Chloride) 1,005 mls @ 60 mls/hr IV .[id number] [facility] Last Admin: 03/22/17 04:26 Dose: Not Given Ciprofloxacin (Cipro 400mg/200ml Dsw) 400 mg in 200 mls @ 133 mls/hr IVPB DAILY @2200 [facility] Last Admin: 03/21/17 21:41 Dose: 133 mls/hr Modafinil (Provigil) 100 mg PO DAILY [facility] Last Admin: 03/22/17 09:56 Dose: 100 mg Potassium Phos/Sodium Phos (Neutra-Phos) 1 pkt PO Q8 [facility] Last Admin: 03/22/17 06:25 Dose: 1 pkt - Labs Labs: 03/21/17 06:24 03/21/17 06:27 PT 14.1 SECONDS (9.7-12.2) H 03/17/17 06:06 INR 1.3 03/17/17 06:06 APTT 31 SECONDS (21-34) 03/17/17 06:06 - Constitutional Appears: Non-toxic - Head Exam Head Exam: ATRAUMATIC, NORMOCEPHALIC - Eye Exam Eye Exam: Normal appearance. absent: Nystagmus - ENT Exam ENT Exam: Mucous Membranes Moist - Neck Exam Neck Exam: absent: Meningismus - Respiratory Exam Respiratory Exam: Clear to Ausculation Bilateral, NORMAL BREATHING PATTERN - Cardiovascular Exam Cardiovascular Exam: Irregular Rhythm - GI/Abdominal Exam GI & Abdominal Exam: Soft. absent: Distended - Back Exam Back Exam: rash noted (sacal area small) - Neurological Exam Neuro motor strength exam: Left Upper Extremity: 0, Left Lower Extremity: 0 Assessment and Plan - Assessment and Plan (Free Text) Assessment: Patient with Intracerebral hemorrhage alert but with altered consciousness, follow up CT stable, Vitals stable- Hypertension monitoring Afib- on meds Nutrition- on NGT GI prophylaxis no dvt med prophylaxis due to ICH scdevice supportive care
[2017-03-22] MEDS: Digoxin 125 mcg (0.125 mg) Tab NG SCH (18:32)
[2017-03-22] MEDS: Ciprofloxacin 400mg/200ml D5W 400 MG/200 ML BAG IVPB SCH (22:27)
[2017-03-23] MEDS: Potassium & Sodium Phosphate PO SCH ×3 (07:34→21:33)
--- NOTE | 2017-03-23 07:45 | PN ---
DATE: 03/23/2017 NEUROLOGICAL PROBLEM: Possible aspiration pneumonia, secondary to her existing neurological illness. PHYSICAL EXAMINATION: VITAL SIGNS: Blood pressure 120/77, mean arterial pressure 91, respiratory rate 20, temperature 98.1 with a pulse rate of 91, regular. NEUROLOGIC: The patient seems to be awake. Responds to visual threat on the left side. Pupils reactive to light equally. Roving conjugate gaze. Good corneal reflex. Constantly coughing. The patient getting NG feeding at this time. The rest of the examination is unchanged. The patient tolerating Provigil, which was given yesterday. Probably, she is awake during the daytime as per the nurse. RECOMMENDATION: Keep the head in elevation to 45 degrees and I would like to do a chest x-ray to rule out aspiration pneumonia. As I requested, patient can be benefited with PEG insertion to improve her nutritional status for long run to avoid aspiration pneumonia near future. Nelson Gaffney MD cc: [id number] TT: 03/23/2017 07:44:30 Confirmation # [id number] Dictation # [id number] MTDD
--- NOTE | 2017-03-23 09:25 | CP.PCM.PN ---
Subjective - Date & Time of Evaluation Date of Evaluation: 03/23/17 Time of Evaluation: 08:30 - Subjective Subjective: Patient seen, in medical floor, bedridden , head up, with slow response to call , does not communicate, not in distress Objective - Vital Signs/Intake and Output Vital Signs (last 24 hours): Temp Pulse Resp BP Pulse Ox 98.8 F 86 20 126/81 97 03/23/17 07:00 03/23/17 07:00 03/23/17 07:00 03/23/17 07:00 03/23/17 07:00 Intake and Output: 03/23/17 03/23/17 06:59 18:59 Intake Total 640 Output Total 350 Balance 290 - Medications Medications: Current Medications Acetaminophen (Tylenol 325mg Tab) 650 mg PO Q6 PRN PRN Reason: Fever >100.4 F Last Admin: 03/22/17 18:32 Dose: 650 mg Digoxin (Lanoxin) 0.125 mg NG DAILY@1800 [facility] Last Admin: 03/22/17 18:32 Dose: 0.125 mg Famotidine (Pepcid) 20 mg IVP DAILY [facility] Last Admin: 03/22/17 09:56 Dose: 20 mg Potassium Chloride 10 meq/ (Sodium Chloride) 1,005 mls @ 60 mls/hr IV .[id number] [facility] Last Admin: 03/22/17 14:31 Dose: 60 mls/hr Ciprofloxacin (Cipro 400mg/200ml Dsw) 400 mg in 200 mls @ 133 mls/hr IVPB DAILY @2200 [facility] Last Admin: 03/22/17 22:27 Dose: 133 mls/hr Modafinil (Provigil) 100 mg PO DAILY [facility] Last Admin: 03/22/17 09:56 Dose: 100 mg Potassium Phos/Sodium Phos (Neutra-Phos) 1 pkt PO Q8 [facility] Last Admin: 03/23/17 07:34 Dose: 1 pkt - Labs Labs: 03/21/17 06:24 03/21/17 06:27 PT 14.1 SECONDS (9.7-12.2) H 03/17/17 06:06 INR 1.3 03/17/17 06:06 APTT 31 SECONDS (21-34) 03/17/17 06:06 - Constitutional Appears: No Acute Distress - Head Exam Head Exam: ATRAUMATIC, NORMOCEPHALIC - Eye Exam Eye Exam: Normal appearance. absent: Nystagmus - ENT Exam ENT Exam: Mucous Membranes Moist (ngt in place ) - Neck Exam Neck Exam: absent: Meningismus - Respiratory Exam Respiratory Exam: Clear to Ausculation Bilateral, NORMAL BREATHING PATTERN - Cardiovascular Exam Cardiovascular Exam: Irregular Rhythm - GI/Abdominal Exam GI & Abdominal Exam: Soft, Normal Bowel Sounds. absent: Distended - Neurological Exam Neurological Exam: Altered, Awake - Psychiatric Exam Psychiatric exam: Flat Affect - Skin Skin Exam: Normal Color Assessment and Plan - Assessment and Plan (Free Text) Assessment: Patient with hemorrhagic stroke,stable with latest CT , awake but has flat affect, non verbal does not follow command, bed ridden, will continue supportive care feeding - return to vendor recommendation noted aspiration precaution out of bed to chair trial PT Afib on digoxin E Coli UTI- on meds continue GI prophylaxis
--- NOTE | 2017-03-23 10:37 | CP.PCM.PN ---
<Onesimo Payan - Last Filed: 03/23/17 10:33> Subjective - Date & Time of Evaluation Date of Evaluation: 03/23/17 Time of Evaluation: 10:33 - Subjective Subjective: Cardiology Progress Note Dr. Kelly (covering for Dr. Ferguson) Patient seen and examined at the bedside. No acute distress. No acute events overnight. Nursing staff reports no issues. The patient remains at baseline. No interval change from prior examination. Patient minimally ability to follow commands. Patient's responses are inappropriate to conversation. ROS unable to be obtained at this time due to AMS. Objective - Vital Signs/Intake and Output Vital Signs (last 24 hours): Temp Pulse Resp BP Pulse Ox 98.8 F 86 20 126/81 97 03/23/17 07:00 03/23/17 07:00 03/23/17 07:00 03/23/17 07:00 03/23/17 07:00 Intake and Output: 03/23/17 03/23/17 06:59 18:59 Intake Total 640 Output Total 350 Balance 290 - Medications Medications: Current Medications Acetaminophen (Tylenol 325mg Tab) 650 mg PO Q6 PRN PRN Reason: Fever >100.4 F Last Admin: 03/22/17 18:32 Dose: 650 mg Digoxin (Lanoxin) 0.125 mg NG DAILY@1800 [facility] Last Admin: 03/22/17 18:32 Dose: 0.125 mg Famotidine (Pepcid) 20 mg IVP DAILY [facility] Last Admin: 03/23/17 09:48 Dose: 20 mg Potassium Chloride 10 meq/ (Sodium Chloride) 1,005 mls @ 60 mls/hr IV .[id number] [facility] Last Admin: 03/22/17 14:31 Dose: 60 mls/hr Ciprofloxacin (Cipro 400mg/200ml Dsw) 400 mg in 200 mls @ 133 mls/hr IVPB DAILY @2200 [facility] Last Admin: 03/22/17 22:27 Dose: 133 mls/hr Modafinil (Provigil) 100 mg PO DAILY [facility] Last Admin: 03/23/17 09:48 Dose: 100 mg Potassium Phos/Sodium Phos (Neutra-Phos) 1 pkt PO Q8 [facility] Last Admin: 03/23/17 07:34 Dose: 1 pkt - Labs Labs: 03/21/17 06:24 05/03/17 06:27 PT 14.1 SECONDS (9.7-12.2) H 03/17/17 06:06 INR 1.3 03/17/17 06:06 APTT 31 SECONDS (21-34) 03/17/17 06:06 - Additional Findings Additional findings: - Constitutional Appears: Chronically Ill - Head Exam Head Exam: ATRAUMATIC, NORMAL INSPECTION, NORMOCEPHALIC - Eye Exam Eye Exam: absent: Nystagmus - ENT Exam ENT Exam: Mucous Membranes Moist, Normal Exam - Neck Exam Neck Exam: Normal Inspection - Respiratory Exam Respiratory Exam: Clear to Ausculation Bilateral, NORMAL BREATHING PATTERN. absent: Rales, Rhonchi, Wheezes, Stridor - Cardiovascular Exam Cardiovascular Exam: Tachycardia, Irregular Rhythm (irregularly), +S1, +S2. absent: Diastolic murmur, REGULAR RHYTHM, RRR, Murmur - GI/Abdominal Exam GI & Abdominal Exam: Soft, Normal Bowel Sounds. absent: Guarding, Rigid, Tenderness - Extremities Exam Extremities Exam: Normal Inspection - Neurological Exam Neurological Exam: Altered Neuro motor strength exam: Left Upper Extremity: 5, Right Upper Extremity: 0, Left Lower Extremity: 5, Right Lower Extremity: 0 - Skin Skin Exam: Dry, Intact, Normal Color, Warm Assessment and Plan (1) Hemorrhagic stroke Assessment & Plan: continue supportive care and medical management per ICU team Anticoagulation contraindicated / to intraparenchymal hemorrhage 03/19/17 Venous Duplex- No evidence of superficial or DVT B/L 03/21/17 CT Head- Stable left brain intraparenchymal hemorrhage surrounding with edema and resulting in mass effect on the lateral ventricles and approximately 9.5 millimeter [id number] midline shift . No significant interval change when compared to the previous exam. 03/19/17 CT Head- Re- demonstration of large heterogeneous intraparenchymal hemorrhage at the left temporal and parietal lobe. Interval further worsening of surrounding edema and mass effect as well as [id number] midline shift compared to the previous exam. Effacement of the left basilar cistern. Findings are concern for subfalcine and mild transtentorial herniation. Diffuse effacement of the sulci at the left brain. 03/17/17 CT Head- Increase size large left temporal and parietal hematoma as detailed above. In addition, there is marked increased mass effect with compression of the left lateral ventricle particularly the left temporal horn and shift of the septum pellucidum from left to right. Overlying sulcal effacement. See above discussion for additional findings and details. 03/16/17 CT Head- Acute left temporal lobe hemorrhage and adjacent subarachnoid hemorrhage. Status: Acute (2) A-fib Assessment & Plan: HAS-BLED: 3 (high risk for anticoagulation) [id number]: Score 8 hold anticoagulation 2/2 to hemorrhagic stroke continue rate control with digoxin 0.125mg IV daily 03/16/17 EKG- A-fib with RVR (112bpm), occasional PVC, normal QRS duration, prolonged QTc, left axis deviation, non specific ST/T wave changes 01/23/15 Echo- normal systolic (EF- 74%) and diastolic function, mild mitral regurgitation Status: Chronic <Juan Pablo Kelly - Last Filed: 04/30/17 04:47> Objective - Vital Signs/Intake and Output Vital Signs (last 24 hours): Temp Pulse Resp BP Pulse Ox 98.4 F 90 20 126/77 97 03/29/17 15:41 03/29/17 15:41 03/29/17 15:41 03/29/17 15:41 03/29/17 15:41 - Labs Labs: 03/29/17 14:13 03/29/17 14:13 PT 14.8 SECONDS (9.7-12.2) H 03/27/17 11:54 INR 1.3 03/27/17 11:54 APTT 31 SECONDS (21-34) 03/17/17 06:06 Assessment and Plan (1) Hip fracture, left Status: Acute (2) Intracranial bleed Status: Acute Attending/Attestation - Attestation I have personally seen and examined this patient.: Yes I have fully participated in the care of the patient.: Yes I have reviewed all pertinent clinical information, including history, physical exam and plan: Yes Notes (Text): 04/30/17 04:47 no vt contiue bp control
--- NOTE | 2017-03-23 11:22 | RAD ---
HISTORY: Aspiration pneumonia. Portable study 07:45. COMPARISON: 03/16/2017. FINDINGS: LUNGS: No active pulmonary disease. PLEURA: No significant pleural effusion identified, no pneumothorax apparent. CARDIOVASCULAR: Cardiomegaly. No evidence of acute, significant cardiovascular disease. OSSEOUS STRUCTURES: No significant abnormalities. VISUALIZED UPPER ABDOMEN: Normal. OTHER FINDINGS: None. IMPRESSION: No active disease. No significant interval change compared to the prior examination(s).
--- NOTE | 2017-03-23 15:24 | CP.PCM.CON ---
History of Present Illness - History of Present Illness History of Present Illness: CC: Dysphagia S/P Intracranial bleed HPI: 81 year old woman was admitted March 16 with acute hemorrhagic stroke. She has been dependent on NG feeds since then, and is aphasic. We were contacted last night at 7:37 PM for PEG consult. I evaluated the patient, and discussed PEG with patient's daughter, and she does not wish to have PEG done at this point. Family is considering hospice. They wish to defer PEG and evaluate the patient's prognosis. Review of Systems - Review of Systems Systems not reviewed;Unavailable: Other (Aphasic) Past Patient History - Infectious Disease Hx of Infectious Diseases: None - Past Medical History & Family History Past Medical History?: Yes - Past Social History Smoking Status: Former Smoker - CARDIAC Hx Cardiac Disorders: Yes (A-fib) Hx Hypercholesterolemia: Yes Hx Hypertension: Yes - PULMONARY Hx Chronic Obstructive Pulmonary Disease (COPD): Yes - NEUROLOGICAL HX Cerebrovascular Accident: Yes (01/2015) - HEENT Hx HEENT Problems: No Hx Cataracts: Yes (Rock [employer]ens Implant) - RENAL Hx Chronic Kidney Disease: No - ENDOCRINE/METABOLIC Hx Endocrine Disorders: No - HEMATOLOGICAL/ONCOLOGICAL Hx Blood Disorders: No - INTEGUMENTARY Hx Dermatological Problems: No - MUSCULOSKELETAL/RHEUMATOLOGICAL Hx Arthritis: Yes - GASTROINTESTINAL Hx Gastrointestinal Disorders: No Other/Comment: DENIES ANY RECTAL BLEEDING OR ANY SYMPTOMS - GENITOURINARY/GYNECOLOGICAL Hx Genitourinary Disorders: Yes Hx Incontinence: Yes - PSYCHIATRIC Hx Substance Use: No - SURGICAL HISTORY Hx Surgeries: Yes Hx Cataract Extraction: Yes Hx Eye Surgery: Yes (CATARACTS) Hx Hysterectomy: Yes (1979) Hx Open Reduction Internal Fixation: Yes (LEFT HIP REPLACEMENT WITH RODS) Hx Orthopedic Surgery: Yes (L Hip ORIF) Other/Comment: Rock retinal surgery done 2x - ANESTHESIA Hx Anesthesia: Yes Hx Anesthesia Reactions: No Hx Malignant Hyperthermia: No Meds Allergies/Adverse Reactions: Allergies Allergy/AdvReac Type Severity Reaction Status Date / Time azithromycin [From Zithromax] Allergy Verified 03/16/17 18:12 iodine Allergy Verified 03/16/17 18:12 Penicillins Allergy Verified 03/16/17 18:12 Sulfa (Sulfonamide Allergy Verified 03/16/17 18:12 Antibiotics) seafood Allergy Uncoded 03/16/17 18:12 - Medications Medications: Current Medications Acetaminophen (Tylenol 325mg Tab) 650 mg PO Q6 PRN PRN Reason: Fever >100.4 F Last Admin: 03/22/17 18:32 Dose: 650 mg Digoxin (Lanoxin) 0.125 mg NG DAILY@1800 [facility] Last Admin: 03/22/17 18:32 Dose: 0.125 mg Famotidine (Pepcid) 20 mg IVP DAILY [facility] Last Admin: 03/23/17 09:48 Dose: 20 mg Potassium Chloride 10 meq/ (Sodium Chloride) 1,005 mls @ 60 mls/hr IV .[id number] [facility] Last Admin: 03/22/17 14:31 Dose: 60 mls/hr Ciprofloxacin (Cipro 400mg/200ml Dsw) 400 mg in 200 mls @ 133 mls/hr IVPB DAILY @2200 [facility] Last Admin: 03/22/17 22:27 Dose: 133 mls/hr Modafinil (Provigil) 100 mg PO DAILY [facility] Last Admin: 03/23/17 09:48 Dose: 100 mg Potassium Phos/Sodium Phos (Neutra-Phos) 1 pkt PO Q8 [facility] Last Admin: 03/23/17 07:34 Dose: 1 pkt Physical Exam - Constitutional Appears: Chronically Ill - Head Exam Head Exam: NORMOCEPHALIC - Eye Exam Eye Exam: absent: Scleral icterus - ENT Exam Additional comments: NG Tube - Respiratory Exam Respiratory Exam: NORMAL BREATHING PATTERN - Cardiovascular Exam Cardiovascular Exam: Irregular Rhythm - GI/Abdominal Exam GI & Abdominal Exam: Soft. absent: Tenderness - Neurological Exam Neurological exam: Alert (Expressive aphasia) Results - Vital Signs Recent Vital Signs: Last Vital Signs Temp 98.8 F 03/23/17 07:00 Pulse 86 03/23/17 07:00 Resp 20 03/23/17 07:00 BP 126/81 03/23/17 07:00 Pulse Ox 97 03/23/17 07:00 - Labs Result Diagrams: 03/21/17 06:24 03/21/17 06:27 Assessment & Plan (1) Hemorrhagic stroke Assessment and Plan: Can not swallow. Dependent on NG Tube for feedings Family is not agreeable to PEG at present. Let us know if they change their mind Status: Acute
[2017-03-23] MEDS: Digoxin 125 mcg (0.125 mg) Tab NG SCH (18:26)
[2017-03-23] MEDS: Ciprofloxacin 400mg/200ml D5W 400 MG/200 ML BAG IVPB SCH (21:33)
[2017-03-24] MEDS: Potassium & Sodium Phosphate PO SCH ×3 (06:16→22:15)
--- NOTE | 2017-03-24 07:55 | CP.PCM.PN ---
Subjective - Date & Time of Evaluation Date of Evaluation: 03/24/17 Time of Evaluation: 07:52 - Subjective Subjective: unchanged no events overnight Objective - Vital Signs/Intake and Output Vital Signs (last 24 hours): Temp Pulse Resp BP Pulse Ox 98.1 F 105 H 20 135/92 H 95 03/23/17 23:10 03/23/17 23:10 03/23/17 23:10 03/23/17 23:10 03/23/17 23:10 Intake and Output: 03/24/17 03/24/17 06:59 18:59 Intake Total 744 Output Total 900 Balance -156 - Medications Medications: Current Medications Acetaminophen (Tylenol 325mg Tab) 650 mg PO Q6 PRN PRN Reason: Fever >100.4 F Last Admin: 03/22/17 18:32 Dose: 650 mg Digoxin (Lanoxin) 0.125 mg NG DAILY@1800 [facility] Last Admin: 03/23/17 18:26 Dose: 0.125 mg Famotidine (Pepcid) 20 mg IVP DAILY [facility] Last Admin: 03/23/17 09:48 Dose: 20 mg Potassium Chloride 10 meq/ (Sodium Chloride) 1,005 mls @ 60 mls/hr IV .[id number] [facility] Last Admin: 03/24/17 01:11 Dose: 60 mls/hr Ciprofloxacin (Cipro 400mg/200ml Dsw) 400 mg in 200 mls @ 133 mls/hr IVPB DAILY @2200 [facility] Last Admin: 03/23/17 21:33 Dose: 133 mls/hr Modafinil (Provigil) 100 mg PO DAILY [facility] Last Admin: 03/23/17 09:48 Dose: 100 mg Potassium Phos/Sodium Phos (Neutra-Phos) 1 pkt PO Q8 [facility] Last Admin: 03/24/17 06:16 Dose: 1 pkt - Labs Labs: 03/21/17 06:24 03/21/17 06:27 PT 14.1 SECONDS (9.7-12.2) H 03/17/17 06:06 INR 1.3 03/17/17 06:06 APTT 31 SECONDS (21-34) 03/17/17 06:06 - Constitutional Appears: No Acute Distress - Head Exam Head Exam: ATRAUMATIC - Eye Exam Eye Exam: Normal appearance - ENT Exam ENT Exam: Mucous Membranes Moist - Respiratory Exam Respiratory Exam: Clear to Ausculation Bilateral - GI/Abdominal Exam GI & Abdominal Exam: Soft - Extremities Exam Extremities Exam: absent: Tenderness - Neurological Exam Neurological Exam: Awake - Psychiatric Exam Psychiatric exam: absent: Agitated - Skin Skin Exam: Dry Assessment and Plan (1) Hip fracture, left Assessment & Plan: continue digoxin no a/c Status: Acute (2) Intracranial bleed Status: Acute
--- NOTE | 2017-03-24 14:29 | CP.PCM.PN ---
Subjective - Date & Time of Evaluation Date of Evaluation: 03/24/17 Time of Evaluation: 08:30 - Subjective Subjective: Patient seen, update discussed with staff family not deciding for pEG - Discussion with [facility] evaluation Objective - Vital Signs/Intake and Output Vital Signs (last 24 hours): Temp Pulse Resp BP Pulse Ox 98.5 F 98 H 18 136/89 95 03/24/17 08:26 03/24/17 08:26 03/24/17 08:26 03/24/17 08:26 03/24/17 08:26 Intake and Output: 03/24/17 03/24/17 06:59 18:59 Intake Total 744 Output Total 900 Balance -156 - Medications Medications: Current Medications Acetaminophen (Tylenol 325mg Tab) 650 mg PO Q6 PRN PRN Reason: Fever >100.4 F Last Admin: 03/22/17 18:32 Dose: 650 mg Digoxin (Lanoxin) 0.125 mg NG DAILY@1800 [facility] Last Admin: 03/23/17 18:26 Dose: 0.125 mg Famotidine (Pepcid) 20 mg IVP DAILY [facility] Last Admin: 03/24/17 11:09 Dose: 20 mg Potassium Chloride 10 meq/ (Sodium Chloride) 1,005 mls @ 60 mls/hr IV .[id number] [facility] Last Admin: 03/24/17 01:11 Dose: 60 mls/hr Ciprofloxacin (Cipro 400mg/200ml Dsw) 400 mg in 200 mls @ 133 mls/hr IVPB DAILY @2200 [facility] Last Admin: 03/23/17 21:33 Dose: 133 mls/hr Modafinil (Provigil) 100 mg PO DAILY [facility] Last Admin: 03/24/17 11:09 Dose: 100 mg Potassium Phos/Sodium Phos (Neutra-Phos) 1 pkt PO Q8 [facility] Last Admin: 03/24/17 06:16 Dose: 1 pkt - Labs Labs: 03/21/17 06:24 03/21/17 06:27 PT 14.1 SECONDS (9.7-12.2) H 03/17/17 06:06 INR 1.3 03/17/17 06:06 APTT 31 SECONDS (21-34) 03/17/17 06:06 - Constitutional Appears: No Acute Distress - Head Exam Head Exam: ATRAUMATIC, NORMOCEPHALIC - Eye Exam Eye Exam: absent: Nystagmus - ENT Exam ENT Exam: Mucous Membranes Moist - Respiratory Exam Respiratory Exam: Clear to Ausculation Bilateral, NORMAL BREATHING PATTERN. absent: Wheezes - Cardiovascular Exam Cardiovascular Exam: Irregular Rhythm - GI/Abdominal Exam GI & Abdominal Exam: Soft, Normal Bowel Sounds. absent: Distended - Extremities Exam Extremities Exam: absent: Joint Swelling, Pedal Edema - Neurological Exam Neurological Exam: Altered, Awake Neuro motor strength exam: Right Upper Extremity: 0, Right Lower Extremity: 0 - Psychiatric Exam Psychiatric exam: Flat Affect. absent: Agitated - Skin Skin Exam: Normal Color Assessment and Plan - Assessment and Plan (Free Text) Assessment: Patient with hemorrhagic stroke with altered consciousness, with poor prognosis Supportive care discussed Hospice to discuss with family Continue Afib and UTI treatment
--- NOTE | 2017-03-24 14:36 | CP.PCM.PN ---
Subjective - Date & Time of Evaluation Date of Evaluation: 03/24/17 Time of Evaluation: 14:25 - Subjective Subjective: f/u dysphagia Pt seen with aids present. Denies abdom pain, fever, chills, CP, SOB, OSEGUERA, cough, hematuria Objective - Vital Signs/Intake and Output Vital Signs (last 24 hours): Temp Pulse Resp BP Pulse Ox 98.5 F 98 H 18 136/89 95 03/24/17 08:26 03/24/17 08:26 03/24/17 08:26 03/24/17 08:26 03/24/17 08:26 Intake and Output: 03/24/17 03/24/17 06:59 18:59 Intake Total 744 Output Total 900 Balance -156 - Medications Medications: Current Medications Acetaminophen (Tylenol 325mg Tab) 650 mg PO Q6 PRN PRN Reason: Fever >100.4 F Last Admin: 03/22/17 18:32 Dose: 650 mg Digoxin (Lanoxin) 0.125 mg NG DAILY@1800 [facility] Last Admin: 03/23/17 18:26 Dose: 0.125 mg Famotidine (Pepcid) 20 mg IVP DAILY [facility] Last Admin: 03/24/17 11:09 Dose: 20 mg Potassium Chloride 10 meq/ (Sodium Chloride) 1,005 mls @ 60 mls/hr IV .[id number] [facility] Last Admin: 03/24/17 01:11 Dose: 60 mls/hr Ciprofloxacin (Cipro 400mg/200ml Dsw) 400 mg in 200 mls @ 133 mls/hr IVPB DAILY @2200 [facility] Last Admin: 03/23/17 21:33 Dose: 133 mls/hr Modafinil (Provigil) 100 mg PO DAILY [facility] Last Admin: 03/24/17 11:09 Dose: 100 mg Potassium Phos/Sodium Phos (Neutra-Phos) 1 pkt PO Q8 [facility] Last Admin: 03/24/17 06:16 Dose: 1 pkt - Labs Labs: 03/21/17 06:24 03/21/17 06:27 PT 14.1 SECONDS (9.7-12.2) H 03/17/17 06:06 INR 1.3 03/17/17 06:06 APTT 31 SECONDS (21-34) 03/17/17 06:06 - Constitutional Appears: Non-toxic - Neck Exam Neck Exam: absent: Tenderness - Respiratory Exam Respiratory Exam: Clear to Ausculation Bilateral - Cardiovascular Exam Cardiovascular Exam: Irregular Rhythm - GI/Abdominal Exam GI & Abdominal Exam: Soft, Normal Bowel Sounds. absent: Tenderness - Extremities Exam Extremities Exam: absent: Calf Tenderness - Neurological Exam Neurological Exam: Alert, Awake. absent: Oriented x3 Assessment and Plan (1) Hemorrhagic stroke Status: Acute (2) A-fib Status: Chronic (3) COPD (chronic obstructive pulmonary disease) Status: Chronic (4) Hypertension Status: Chronic (5) Dysphagia Assessment & Plan: Family does not agree to PEG. Please let us know if that changes. Considering hospice. Status: Acute
[2017-03-24] MEDS: Digoxin 125 mcg (0.125 mg) Tab NG SCH (17:25)
[2017-03-24] MEDS: Ciprofloxacin 400mg/200ml D5W 400 MG/200 ML BAG IVPB SCH (21:53)
[2017-03-25] MEDS: Potassium & Sodium Phosphate PO SCH ×3 (05:02→21:19)
--- NOTE | 2017-03-25 07:26 | CP.PCM.PN ---
Subjective - Date & Time of Evaluation Date of Evaluation: 03/25/17 Time of Evaluation: 07:10 - Subjective Subjective: pt non verbal stable Objective - Vital Signs/Intake and Output Vital Signs (last 24 hours): Temp Pulse Resp BP Pulse Ox 98 F 95 H 20 143/86 96 03/24/17 23:32 03/24/17 23:32 03/24/17 23:32 03/24/17 23:32 03/24/17 23:32 Intake and Output: 03/25/17 03/25/17 06:59 18:59 Intake Total 880 Output Total 1150 Balance -270 - Medications Medications: Current Medications Acetaminophen (Tylenol 325mg Tab) 650 mg PO Q6 PRN PRN Reason: Fever >100.4 F Last Admin: 03/24/17 17:25 Dose: 650 mg Digoxin (Lanoxin) 0.125 mg NG DAILY@1800 [facility] Last Admin: 03/24/17 17:25 Dose: 0.125 mg Famotidine (Pepcid) 20 mg IVP DAILY [facility] Last Admin: 03/24/17 11:09 Dose: 20 mg Potassium Chloride 10 meq/ (Sodium Chloride) 1,005 mls @ 60 mls/hr IV .[id number] [facility] Last Admin: 03/24/17 23:41 Dose: Not Given Ciprofloxacin (Cipro 400mg/200ml Dsw) 400 mg in 200 mls @ 133 mls/hr IVPB DAILY @2200 [facility] Last Admin: 03/24/17 21:53 Dose: 133 mls/hr Modafinil (Provigil) 100 mg PO DAILY [facility] Last Admin: 03/24/17 11:09 Dose: 100 mg Potassium Phos/Sodium Phos (Neutra-Phos) 1 pkt PO Q8 [facility] Last Admin: 03/25/17 05:02 Dose: 1 pkt - Labs Labs: 03/21/17 06:24 03/21/17 06:27 PT 14.1 SECONDS (9.7-12.2) H 03/17/17 06:06 INR 1.3 03/17/17 06:06 APTT 31 SECONDS (21-34) 03/17/17 06:06 - Constitutional Appears: Non-toxic - Head Exam Head Exam: ATRAUMATIC - Eye Exam Eye Exam: Normal appearance - ENT Exam ENT Exam: Mucous Membranes Moist - Respiratory Exam Respiratory Exam: NORMAL BREATHING PATTERN - Cardiovascular Exam Cardiovascular Exam: Irregular Rhythm - GI/Abdominal Exam GI & Abdominal Exam: Normal Bowel Sounds - Exam External exam: absent: Lesions - Extremities Exam Extremities Exam: absent: Tenderness - Neurological Exam Neurological Exam: Awake. absent: Alert - Skin Skin Exam: Dry Assessment and Plan (1) Intracranial bleed Assessment & Plan: continue rate control and no a/c do to intracranial bleed Status: Acute (2) A-fib Status: Chronic
[2017-03-25] MEDS: Digoxin 125 mcg (0.125 mg) Tab NG SCH (17:50)
[2017-03-25] MEDS: Ciprofloxacin 400mg/200ml D5W 400 MG/200 ML BAG IVPB SCH (21:19)
--- NOTE | 2017-03-25 22:23 | CP.PCM.PN ---
Subjective - Date & Time of Evaluation Date of Evaluation: 03/25/17 Time of Evaluation: 09:00 - Subjective Subjective: patient seen- sleeping- hard to arouse, nurse update- nods to verbal conversation- no unusual event -, patient sits to chair for 2 hours daily discussion of long-term care presented to daughter-referral to social services analyst/ case assistant Objective - Vital Signs/Intake and Output Vital Signs (last 24 hours): Temp Pulse Resp BP Pulse Ox 98.1 F 88 20 137/86 96 03/25/17 15:34 03/25/17 15:34 03/25/17 15:34 03/25/17 15:34 03/25/17 15:34 Intake and Output: 03/25/17 03/26/17 18:59 06:59 Output Total 600 Balance -600 - Medications Medications: Current Medications Acetaminophen (Tylenol 325mg Tab) 650 mg PO Q6 PRN PRN Reason: Fever >100.4 F Last Admin: 03/24/17 17:25 Dose: 650 mg Digoxin (Lanoxin) 0.125 mg NG DAILY@1800 [facility] Last Admin: 03/25/17 17:50 Dose: 0.125 mg Famotidine (Pepcid) 20 mg IVP DAILY [facility] Last Admin: 03/25/17 09:41 Dose: 20 mg Potassium Chloride 10 meq/ (Sodium Chloride) 1,005 mls @ 60 mls/hr IV .[id number] [facility] Last Admin: 03/25/17 16:00 Dose: Not Given Ciprofloxacin (Cipro 400mg/200ml Dsw) 400 mg in 200 mls @ 133 mls/hr IVPB DAILY @2200 [facility] Last Admin: 03/25/17 21:19 Dose: 133 mls/hr Modafinil (Provigil) 100 mg PO DAILY [facility] Last Admin: 03/25/17 09:41 Dose: 100 mg Potassium Phos/Sodium Phos (Neutra-Phos) 1 pkt PO Q8 [facility] Last Admin: 03/25/17 21:19 Dose: 1 pkt - Labs Labs: 03/21/17 06:24 03/21/17 06:27 PT 14.1 SECONDS (9.7-12.2) H 03/17/17 06:06 INR 1.3 03/17/17 06:06 APTT 31 SECONDS (21-34) 03/17/17 06:06 - Constitutional Appears: Non-toxic, No Acute Distress - Head Exam Head Exam: ATRAUMATIC, NORMOCEPHALIC - Eye Exam Eye Exam: Normal appearance. absent: Periorbital tenderness - ENT Exam ENT Exam: Mucous Membranes Moist - Neck Exam Neck Exam: Full ROM (turns head no limitation of movement ) - Respiratory Exam Respiratory Exam: Clear to Ausculation Bilateral, NORMAL BREATHING PATTERN - Cardiovascular Exam Cardiovascular Exam: Irregular Rhythm - GI/Abdominal Exam GI & Abdominal Exam: Soft. 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
[2017-03-26] MEDS: Potassium & Sodium Phosphate PO SCH ×3 (05:49→21:22)
--- NOTE | 2017-03-26 07:52 | PN ---
DATE: 03/26/2017 TIME OF EVALUATION: 7:15 a.m. NEUROLOGICAL PROBLEM: Right-sided hemiplegia, right-sided homonymous hemianopsia, Wernicke's aphasia secondary to her left dominant hemispheric lobar hemorrhage. The patient's condition has been well discussed with her daughter over the phone last night as well a s on Sunday. This time, patient was examined with the family members including 2 daughters as well a s her granddaughter. The patient's examination as stated above. The patient is more awake with modafinil. Constant cough ing due to the irritation of the nasogastric tube versus possible aspiration pneumonia. The patient's neurological insult possible prognosis and cardiac problem related to a neurological di sease, all well discussed. The patient's family members aware of risk of stroke because of cardiac p roblem as well. However, they are aware of no anticoagulation can be placed because of her intracran ial hemorrhage. At this point, the family agreed to have a PEG placement to improve her nutritional status. By doing this, they are also aware of neurological status to take on its own course, though patient may not be getting 100% better the way she was in the past. They agreed for her to get a rosario sonable recovery by improving her nutritional status. The patient's family members also does not wan t to keep her nasogastric tube. It could be potential aspiration pneumonia and worsening her existin g problem. This was all discussed a reasonable time face to face as well as over the phone for more than 45 minutes. At this point, patient's family members agreed to have a PEG placement. Continue the present managem ent. I would like to do another CAT scan and a chest x-ray to rule out pneumonia and CAT scan for fo llowup of her intracranial bleed. Nelson Gaffney MD cc: [id number] TT: 03/26/2017 07:51:42 Confirmation # [id number] Dictation # [id number]
[2017-03-26 08:33] LABS: BASO # 0.1 K/uL (0.0-0.2); BASO % 0.8 % (0.0-2.0); EOS # 0.1 K/uL (0.0-0.7); EOS % 0.8 % (0.0-4.0); HEMATOCRIT 41.6 % (34.0-47.0); LYMPH # 0.6 K/uL (1.0-4.3); LYMPH % 4.7 % (20.0-40.0); MEAN CELL VOLUME 89.3 fL (81.0-99.0); MEAN CORPUSCULAR HEMOGLOBIN 30.1 pg (27.0-31.0); MEAN CORPUSCULAR HGB CONC 33.7 g/dL (33.0-37.0); MEAN PLATELET VOLUME 6.9 fL (7.2-11.7); MONO # 1.4 K/uL (0.0-0.8); MONO % 10.7 % (0.0-10.0); NRBC % 0.4 % (0.0-2.0); PLATELET COUNT 460 K/uL (130-400); RED CELL DISTRIBUTION WIDTH 12.9 % (11.5-14.5); WHITE BLOOD COUNT 13.2 K/uL (4.8-10.8)
--- NOTE | 2017-03-26 08:39 | RAD ---
HISTORY: aspiration pneumonia COMPARISON: 03/23/2017 FINDINGS: LUNGS: Mild bibasilar fibrotic changes. PLEURA: No significant pleural effusion identified, no pneumothorax apparent. CARDIOVASCULAR: Normal. OSSEOUS STRUCTURES: No significant abnormalities. VISUALIZED UPPER ABDOMEN: Normal. OTHER FINDINGS: None. IMPRESSION: Mild bibasilar fibrotic changes.
[2017-03-26 08:46] LABS: CHLORIDE 98 mmol/L (98-107); POTASSIUM 3.6 mmol/L (3.6-5.2); SODIUM 133 mmol/L (132-148)
[2017-03-26 08:48] LABS: GFR AFRICAN-AMERICAN > 60
[2017-03-26 08:49] LABS: ALB/GLOB RATIO 0.9 (1.0-2.1); ALKALINE PHOSPHATASE 85 U/L (38-126); ALT/SGPT 34 U/L (9-52); AST/SGOT 28 U/L (14-36); BILIRUBIN,TOTAL 0.5 mg/dL (0.2-1.3); BLOOD UREA NITROGEN 14 mg/dL (7-17); CALCIUM 8.6 mg/dl (8.6-10.4); CARBON DIOXIDE 27 mmol/L (22-30); GLUCOSE,RANDOM 147 mg/dL (65-105); TOTAL PROTEIN 6.3 g/dL (6.3-8.3)
--- NOTE | 2017-03-26 09:59 | CP.PCM.PN ---
Addendum entered and electronically signed by Will Barrow DO 03/28/17 10:21: Correction to physical exam portion: Neuro: Movement and retraction from pain only in left extremities, holding right extremities flaccidly Original Note: <Will Barrow - Last Filed: 03/26/17 16:22> Subjective - Date & Time of Evaluation Date of Evaluation: 03/26/17 Time of Evaluation: 07:40 - Subjective Subjective: Cardiology Progress Note Dr. Kelly (covering for Dr. Ferguson) Patient seen and examined at the bedside. No acute distress. No acute events overnight. The patient remains at baseline (minimally responsive to pain/loud verbal stimuli). No interval change from prior examination. Not following commands. ROS unable to be obtained at this time due to AMS. Objective - Vital Signs/Intake and Output Vital Signs (last 24 hours): Temp Pulse Resp BP Pulse Ox 98.1 F 110 H 18 158/78 H 96 03/26/17 07:00 03/26/17 07:00 03/26/17 07:00 03/26/17 07:00 03/26/17 07:00 Intake and Output: 03/26/17 03/26/17 06:59 18:59 Intake Total 2120 810 Output Total 800 Balance 1320 810 - Medications Medications: Current Medications Acetaminophen (Tylenol 325mg Tab) 650 mg PO Q6 PRN PRN Reason: Fever >100.4 F Last Admin: 03/24/17 17:25 Dose: 650 mg Digoxin (Lanoxin) 0.125 mg NG DAILY@1800 [facility] Last Admin: 03/25/17 17:50 Dose: 0.125 mg Famotidine (Pepcid) 20 mg IVP DAILY [facility] Last Admin: 03/25/17 09:41 Dose: 20 mg Potassium Chloride 10 meq/ (Sodium Chloride) 1,005 mls @ 60 mls/hr IV .[id number] [facility] Last Admin: 03/25/17 16:00 Dose: Not Given Ciprofloxacin (Cipro 400mg/200ml Dsw) 400 mg in 200 mls @ 133 mls/hr IVPB DAILY @2200 [facility] Last Admin: 03/25/17 21:19 Dose: 133 mls/hr Modafinil (Provigil) 100 mg PO DAILY [facility] Last Admin: 03/25/17 09:41 Dose: 100 mg Potassium Phos/Sodium Phos (Neutra-Phos) 1 pkt PO Q8 [facility] Last Admin: 03/26/17 05:49 Dose: 1 pkt - Labs Labs: 03/26/17 08:23 03/26/17 08:23 PT 14.1 SECONDS (9.7-12.2) H 03/17/17 06:06 INR 1.3 03/17/17 06:06 APTT 31 SECONDS (21-34) 03/17/17 06:06 - Constitutional Appears: Non-toxic, Chronically Ill - Head Exam Head Exam: ATRAUMATIC, NORMAL INSPECTION, NORMOCEPHALIC - Eye Exam Eye Exam: absent: Conjunctival injection, Scleral icterus Pupil Exam: PERRL. absent: Irregular, Unequal Additional comments: unable to assess EOMI as not following commands, able to move eyes to avoid direct light challenge for PERRL assessment - ENT Exam ENT Exam: Mucous Membranes Moist. absent: Mucous Membranes Dry - Neck Exam Neck Exam: absent: Full ROM Additional comments: no JVD - Respiratory Exam Respiratory Exam: Clear to Ausculation Bilateral, NORMAL BREATHING PATTERN. absent: Rales, Rhonchi, Wheezes, Respiratory Distress, Stridor - Cardiovascular Exam Cardiovascular Exam: Tachycardia, Irregular Rhythm, +S1, +S2. absent: Bradycardia, REGULAR RHYTHM, RRR - GI/Abdominal Exam GI & Abdominal Exam: Normal Bowel Sounds. absent: Distended - Extremities Exam Extremities Exam: Normal Inspection. absent: Pedal Edema - Neurological Exam Additional comments: Minimally responsive and not following commands, retracts from noxious pain stimuli, some response to loud verbal stimuli. Intermittently moaning but no corresponding to questions or noxious stimuli. Movement and retraction from pain only in left extremities, holding left extremities flaccidly - Skin Skin Exam: Dry, Intact, Normal Color, Warm Assessment and Plan (1) Hemorrhagic stroke Assessment & Plan: -continue supportive care and medical management per primary team -Anticoagulation contraindicated 2/2 to intraparenchymal hemorrhage 03/26/[address]: read pending 03/19/17 Venous Duplex- No evidence of superficial or DVT B/L 03/21/17 CT Head- Stable left brain intraparenchymal hemorrhage surrounding with edema and resulting in mass effect on the lateral ventricles and approximately 9.5 millimeter [id number] midline shift . No significant interval change when compared to the previous exam. 03/19/17 CT Head- Re- demonstration of large heterogeneous intraparenchymal hemorrhage at the left temporal and parietal lobe. Interval further worsening of surrounding edema and mass effect as well as [id number] midline shift compared to the previous exam. Effacement of the left basilar cistern. Findings are concern for subfalcine and mild transtentorial herniation. Diffuse effacement of the sulci at the left brain. 03/17/17 CT Head- Increase size large left temporal and parietal hematoma as detailed above. In addition, there is marked increased mass effect with compression of the left lateral ventricle particularly the left temporal horn and shift of the septum pellucidum from left to right. Overlying sulcal effacement. See above discussion for additional findings and details. 03/16/17 CT Head- Acute left temporal lobe hemorrhage and adjacent subarachnoid hemorrhage. Status: Acute (2) A-fib Assessment & Plan: -HAS-BLED: 3 (high risk for anticoagulation) -[id number]: Score 8 -hold anticoagulation / to hemorrhagic stroke -continue rate control with digoxin 0.125mg IV daily 03/20/17 Echo: LVEF 45%, pulm htn with mild LV diastolic dysfxn, dilated LA and RV , mildly reduced systolic fxn, mild to moderate TR, elevated RA pressures, normal size IVC with poor inspiratory collapse 03/16/17 EKG- A-fib with RVR (112bpm), occasional PVC, normal QRS duration, prolonged QTc, left axis deviation, non specific ST/T wave changes 01/23/15 Echo- normal systolic (EF- 74%) and diastolic function, mild mitral regurgitation Case discussed with Dr. Kelly Status: Chronic <Juan Pablo Kelly - Last Filed: 04/26/17 09:33> Objective - Vital Signs/Intake and Output Vital Signs (last 24 hours): Temp Pulse Resp BP Pulse Ox 98.4 F 90 20 126/77 97 03/29/17 15:41 03/29/17 15:41 03/29/17 15:41 03/29/17 15:41 03/29/17 15:41 - Labs Labs: 03/29/17 14:13 03/29/17 14:13 PT 14.8 SECONDS (9.7-12.2) H 03/27/17 11:54 INR 1.3 03/27/17 11:54 APTT 31 SECONDS (21-34) 03/17/17 06:06 Attending/Attestation - Attestation I have personally seen and examined this patient.: Yes I have fully participated in the care of the patient.: Yes I have reviewed all pertinent clinical information, including history, physical exam and plan: Yes Notes (Text): 04/26/17 09:33 hold a/c continue digoxin for rate control
[2017-03-26 10:19] LABS: EOSINOPHIL 1 % (0-4); NEUTROPHIL 87 % (50-75); TOTAL CELLS COUNTED 100
--- NOTE | 2017-03-26 11:37 | CP.PCM.CON ---
History of Present Illness - History of Present Illness History of Present Illness: Palliative consult requested by Xavier ZABALA Reason: Goals of care discussion Patient is a 81 yo lady admitted from home with new onset of AMS, right facial droop, nose and rectal bleed. Patient stopped blood thinners 2 days ago. Upon admission the CT head was significant for large left temporal hematoma. As per patient's granddaughter Adelia, who visits patient often, patient was at her normal behavior last . On Sunday Adelia went to lease picker her grandmother for dinner out, when patient already had a slurred speech. PMH: A fib, asthma, arthritis, COPD Soc. Hx: lives at home alone Fam. Hx: Unknown Review of Systems - Review of Systems Systems not reviewed;Unavailable: Altered Mental Status Past Patient History - Infectious Disease Hx of Infectious Diseases: None - Past Medical History & Family History Past Medical History?: Yes - Past Social History Smoking Status: Former Smoker - CARDIAC Hx Cardiac Disorders: Yes (A-fib) Hx Hypercholesterolemia: Yes Hx Hypertension: Yes - PULMONARY Hx Chronic Obstructive Pulmonary Disease (COPD): Yes - NEUROLOGICAL HX Cerebrovascular Accident: Yes (01/2015) - HEENT Hx HEENT Problems: No Hx Cataracts: Yes (Rock Lens Implant) - RENAL Hx Chronic Kidney Disease: No - ENDOCRINE/METABOLIC Hx Endocrine Disorders: No - HEMATOLOGICAL/ONCOLOGICAL Hx Blood Disorders: No - INTEGUMENTARY Hx Dermatological Problems: No - MUSCULOSKELETAL/RHEUMATOLOGICAL Hx Arthritis: Yes - GASTROINTESTINAL Hx Gastrointestinal Disorders: No Other/Comment: DENIES ANY RECTAL BLEEDING OR ANY SYMPTOMS - GENITOURINARY/GYNECOLOGICAL Hx Genitourinary Disorders: Yes Hx Incontinence: Yes - PSYCHIATRIC Hx Substance Use: No - SURGICAL HISTORY Hx Surgeries: Yes Hx Cataract Extraction: Yes Hx Eye Surgery: Yes (CATARACTS) Hx Hysterectomy: Yes (1979) Hx Open Reduction Internal Fixation: Yes (LEFT HIP REPLACEMENT WITH RODS) Hx Orthopedic Surgery: Yes (L Hip ORIF) Other/Comment: Rock retinal surgery done 2x - ANESTHESIA Hx Anesthesia: Yes Hx Anesthesia Reactions: No Hx Malignant Hyperthermia: No Meds Allergies/Adverse Reactions: Allergies Allergy/AdvReac Type Severity Reaction Status Date / Time azithromycin [From Zithromax] Allergy Verified 03/16/17 18:12 iodine Allergy Verified 03/16/17 18:12 Penicillins Allergy Verified 03/16/17 18:12 Sulfa (Sulfonamide Allergy Verified 03/16/17 18:12 Antibiotics) seafood Allergy Uncoded 03/16/17 18:12 - Medications Medications: Current Medications Acetaminophen (Tylenol 325mg Tab) 650 mg PO Q6 PRN PRN Reason: Fever >100.4 F Last Admin: 03/24/17 17:25 Dose: 650 mg Digoxin (Lanoxin) 0.125 mg NG DAILY@1800 [facility] Last Admin: 03/25/17 17:50 Dose: 0.125 mg Famotidine (Pepcid) 20 mg IVP DAILY [facility] Last Admin: 03/26/17 11:08 Dose: 20 mg Potassium Chloride 10 meq/ (Sodium Chloride) 1,005 mls @ 60 mls/hr IV .[id number] [facility] Last Admin: 03/25/17 16:00 Dose: Not Given Ciprofloxacin (Cipro 400mg/200ml Dsw) 400 mg in 200 mls @ 133 mls/hr IVPB DAILY @2200 [facility] Last Admin: 03/25/17 21:19 Dose: 133 mls/hr Modafinil (Provigil) 100 mg PO DAILY [facility] Last Admin: 03/26/17 11:08 Dose: 100 mg Potassium Phos/Sodium Phos (Neutra-Phos) 1 pkt PO Q8 [facility] Last Admin: 03/26/17 05:49 Dose: 1 pkt Physical Exam - Constitutional Appears: Chronically Ill - Head Exam Head Exam: ATRAUMATIC, NORMAL INSPECTION, NORMOCEPHALIC - Eye Exam Eye Exam: EOMI, Normal appearance, PERRL Pupil Exam: NORMAL ACCOMODATION, PERRL - ENT Exam ENT Exam: Mucous Membranes Dry Additional comments: NGT - Neck Exam Neck exam: Positive for: Normal Inspection - Respiratory Exam Respiratory Exam: Decreased Breath Sounds, NORMAL BREATHING PATTERN - Cardiovascular Exam Cardiovascular Exam: REGULAR RHYTHM - GI/Abdominal Exam GI & Abdominal Exam: Hypoactive Bowel Sounds - Rectal Exam Rectal Exam: Deferred - Extremities Exam Extremities exam: Positive for: normal inspection - Back Exam Back exam: NORMAL INSPECTION - Neurological Exam Neurological exam: Alert, Altered - Psychiatric Exam Psychiatric exam: Flat Affect - Skin Skin Exam: Pallor Results - Vital Signs Recent Vital Signs: Last Vital Signs Temp 98.1 F 03/26/17 07:00 Pulse 110 H 03/26/17 07:00 Resp 18 03/26/17 07:00 BP 158/78 H 03/26/17 07:00 Pulse Ox 96 03/26/17 07:00 - Labs Result Diagrams: 03/26/17 08:23 03/26/17 08:23 Labs: Laboratory Results - last 24 hr 03/26/17 03/26/17 08:23 08:23 WBC 13.2 H RBC 4.66 Hgb 14.0 Hct 41.6 MCV 89.3 MCH 30.1 MCHC 33.7 RDW 12.9 Plt Count 460 H D MPV 6.9 L Neut % (Auto) 83.0 H Lymph % (Auto) 4.7 L Price % (Auto) 10.7 H Eos % (Auto) 0.8 Baso % (Auto) 0.8 Neut # 11.0 H Lymph # 0.6 L Price # 1.4 H Eos # 0.1 Baso # 0.1 Neutrophils % (Manual) 87 H Band Neutrophils % 1 Lymphocytes % (Manual) 3 L Monocytes % (Manual) 8 Eosinophils % (Manual) 1 Platelet Estimate Normal RBC Morphology Normal Sodium 133 Potassium 3.6 Chloride 98 Carbon Dioxide 27 Anion Gap 11 BUN 14 Creatinine 0.4 L Est GFR ( Amer) > 60 Est GFR (Non-Af Amer) > 60 Random Glucose 147 H Calcium 8.6 Total Bilirubin 0.5 AST 28 ALT 34 Alkaline Phosphatase 85 Total Protein 6.3 Albumin 3.0 L Globulin 3.3 Albumin/Globulin Ratio 0.9 L Assessment & Plan - Assessment and Plan (Free Text) Assessment: Palliative consult Code status DNR/DNI, PPS 10%,ROS unobtainable due to AMS Chart and all diagnostic studies reviewed, patient examined in the bed, ROS obtained from granddaughter. Goals of care discussed with granddaughter at bedside. Patient is alert, lethargic, does not make aye contacts, is non verbal. Muscles are flaccid. Patient does not attempt to reposition in bed. NGT in place for nutrition. Moist cough noted. Ronchi on auscultation. O2Sat 96 % RA. As per previous notes, the PEG was discussed with family and agreed upon. patient was taken today for F[place] up CT head. No blood thinners were advised due to hemorrhagic CVA. The granddaughter states disbelief in the events of her grandmother's health, but is also very realistic. She understands that combination of advanced age and complex medical Hx was a big factor affecting her grandmother's condition. The family was well informed of patient's status . Family is not expecting miracles. They would want patient to be comfortable and transferred to care home facility after the PEG insertion. Impression * AMS secondary to hemorrhagic CVA * Aphasia * Dysphagia * Cough, possible post aspiration * Limited mobility Suggestion * Elevate head at 45 degrees to prevent aspiration * Monitor respiratory status, possible aspiration pneumonia * Agree with PEG * Promote skin condition * Discharge planing to LTC. Family prefers [facility]. * Palliative care will fallow patient on as needed basis. Until this point family is well aware of patient's condition and agreed with care plan. Thank you very much for including me in care of this patient.
--- NOTE | 2017-03-26 12:03 | CT ---
PROCEDURE: CT HEAD WITHOUT CONTRAST. HISTORY: follow up for ICH COMPARISON: 03/21/2017 TECHNIQUE: Axial computed tomography images were obtained through the head/brain without intravenous contrast. Radiation dose: Total exam DLP = 1281 mGy-cm. This CT exam was performed using one or more of the following dose reduction techniques: Automated exposure control, adjustment of the mA and/or kV according to patient size, and/or use of iterative reconstruction technique. FINDINGS: HEMORRHAGE: No significant interval change in a large left parietal temporal hemorrhage with severe mass effect upon the lateral ventricle midline shift. BRAIN: See above. No atrophy or chronic microvascular ischemic changes. VENTRICLES: Unremarkable. No hydrocephalus. CALVARIUM: Unremarkable. PARANASAL SINUSES: Unremarkable as visualized. No significant inflammatory changes. MASTOID AIR CELLS: Unremarkable as visualized. No inflammatory changes. OTHER FINDINGS: None. IMPRESSION: No significant interval change in a large left parietal temporal hemorrhage with severe mass effect upon the lateral ventricle midline shift.
--- NOTE | 2017-03-26 17:11 | CP.PCM.PN ---
Subjective - Date & Time of Evaluation Date of Evaluation: 03/26/17 Time of Evaluation: 17:08 - Subjective Subjective: CC: Unable to feed I was notified today by RN that family wishes to have PEG. 2 daughters present at bedside, discussed with them, and they wish to proceed with PEG. Patient alert but aphasic, unable to make needs known. Objective - Vital Signs/Intake and Output Vital Signs (last 24 hours): Temp Pulse Resp BP Pulse Ox 97.8 F 100 H 20 155/95 H 97 03/26/17 15:08 03/26/17 15:08 03/26/17 15:08 03/26/17 15:08 03/26/17 15:08 Intake and Output: 03/26/17 03/26/17 06:59 18:59 Intake Total 2120 810 Output Total 800 Balance 1320 810 - Medications Medications: Current Medications Acetaminophen (Tylenol 325mg Tab) 650 mg PO Q6 PRN PRN Reason: Fever >100.4 F Last Admin: 03/24/17 17:25 Dose: 650 mg Digoxin (Lanoxin) 0.125 mg NG DAILY@1800 [facility] Last Admin: 03/25/17 17:50 Dose: 0.125 mg Famotidine (Pepcid) 20 mg IVP DAILY [facility] Last Admin: 03/26/17 11:08 Dose: 20 mg Potassium Chloride 10 meq/ (Sodium Chloride) 1,005 mls @ 60 mls/hr IV .[id number] [facility] Last Admin: 03/26/17 14:44 Dose: 60 mls/hr Ciprofloxacin (Cipro 400mg/200ml Dsw) 400 mg in 200 mls @ 133 mls/hr IVPB DAILY @2200 [facility] Last Admin: 03/25/17 21:19 Dose: 133 mls/hr Modafinil (Provigil) 100 mg PO DAILY [facility] Last Admin: 03/26/17 11:08 Dose: 100 mg Potassium Phos/Sodium Phos (Neutra-Phos) 1 pkt PO Q8 [facility] Last Admin: 03/26/17 14:48 Dose: 1 pkt - Labs Labs: 03/26/17 08:23 03/26/17 08:23 PT 14.1 SECONDS (9.7-12.2) H 03/17/17 06:06 INR 1.3 03/17/17 06:06 APTT 31 SECONDS (21-34) 03/17/17 06:06 - Constitutional Appears: Chronically Ill - Head Exam Additional comments: NG Tube - Cardiovascular Exam Cardiovascular Exam: REGULAR RHYTHM - GI/Abdominal Exam GI & Abdominal Exam: Soft. absent: Tenderness Assessment and Plan (1) Hemorrhagic stroke Status: Acute (2) Dysphagia Assessment & Plan: Dependent on tube feedings Plan for PEG in AM Status: Acute
[2017-03-26] MEDS: Digoxin 125 mcg (0.125 mg) Tab NG SCH (17:27)
--- NOTE | 2017-03-26 18:33 | CP.PCM.PN ---
Subjective - Date & Time of Evaluation Date of Evaluation: 03/26/17 Time of Evaluation: 18:30 - Subjective Subjective: Patient seen, bedridden, NGT feeding , same condition aphasic, does not follow command, but turns head to verbal call, moves UE and LE spontaneously Discussion with Maria R, the daughter- they agreed with PEg and discuissed placement after the provedure if stable. family aware of plan Objective - Vital Signs/Intake and Output Vital Signs (last 24 hours): Temp Pulse Resp BP Pulse Ox 97.8 F 100 H 20 155/95 H 97 03/26/17 15:08 03/26/17 15:08 03/26/17 15:08 03/26/17 15:08 03/26/17 15:08 Intake and Output: 03/26/17 03/26/17 06:59 18:59 Intake Total 2120 810 Output Total 800 Balance 1320 810 - Medications Medications: Current Medications Acetaminophen (Tylenol 325mg Tab) 650 mg PO Q6 PRN PRN Reason: Fever >100.4 F Last Admin: 03/24/17 17:25 Dose: 650 mg Digoxin (Lanoxin) 0.125 mg NG DAILY@1800 [facility] Last Admin: 03/26/17 17:27 Dose: 0.125 mg Famotidine (Pepcid) 20 mg IVP DAILY [facility] Last Admin: 03/26/17 11:08 Dose: 20 mg Potassium Chloride 10 meq/ (Sodium Chloride) 1,005 mls @ 60 mls/hr IV .[id number] [facility] Last Admin: 03/26/17 14:44 Dose: 60 mls/hr Ciprofloxacin (Cipro 400mg/200ml Dsw) 400 mg in 200 mls @ 133 mls/hr IVPB DAILY @2200 [facility] Last Admin: 03/25/17 21:19 Dose: 133 mls/hr Modafinil (Provigil) 100 mg PO DAILY [facility] Last Admin: 03/26/17 11:08 Dose: 100 mg Potassium Phos/Sodium Phos (Neutra-Phos) 1 pkt PO Q8 [facility] Last Admin: 03/26/17 14:48 Dose: 1 pkt - Labs Labs: 03/26/17 08:23 03/26/17 08:23 PT 14.1 SECONDS (9.7-12.2) H 03/17/17 06:06 INR 1.3 03/17/17 06:06 APTT 31 SECONDS (21-34) 03/17/17 06:06 - Constitutional Appears: No Acute Distress, Chronically Ill - Head Exam Head Exam: ATRAUMATIC, NORMOCEPHALIC - Eye Exam Eye Exam: Normal appearance. absent: Nystagmus, Periorbital swelling - ENT Exam ENT Exam: Mucous Membranes Moist - Neck Exam Neck Exam: Full ROM. absent: Meningismus - Respiratory Exam Respiratory Exam: Clear to Ausculation Bilateral, NORMAL BREATHING PATTERN - Cardiovascular Exam Cardiovascular Exam: Irregular Rhythm - GI/Abdominal Exam GI & Abdominal Exam: Soft. absent: Distended - Extremities Exam Extremities Exam: absent: Joint Swelling, Pedal Edema - Neurological Exam Neurological Exam: Altered, Awake Neuro motor strength exam: Right Upper Extremity: 0, Right Lower Extremity: 0 - Psychiatric Exam Psychiatric exam: Flat Affect - Skin Skin Exam: Normal Color Assessment and Plan - Assessment and Plan (Free Text) Assessment: Patient with hemorrhagixc Stroke with AMS. right paresis, with repeat CT stable for PEG and for transfer to retirement famiy aware of conditon and Plan A Fib is controlled on Digoxin BP- variable= will continue monitoring UTI- meds afebrile , no unusual events supportive care
[2017-03-26] MEDS: Ciprofloxacin 400mg/200ml D5W 400 MG/200 ML BAG IVPB SCH (21:17)
[2017-03-27] MEDS: Potassium & Sodium Phosphate PO SCH ×3 (05:38→21:21)
[2017-03-27] MEDS ORDERED: Propofol 10 mg/ml Inj (20 ML) ONE (07:39)
--- NOTE | 2017-03-27 10:07 | CP.PCM.PN ---
<Will Barrow - Last Filed: 03/27/17 13:03> Subjective - Date & Time of Evaluation Date of Evaluation: 03/27/17 Time of Evaluation: 09:45 - Subjective Subjective: Cardiology Progress Note Dr. Kelly (covering for Dr. Ferguson) Patient seen and examined at the bedside. No acute distress. No acute events overnight per nursing. Went for PEG tube placement this AM. The patient remains at baseline (minimally responsive to pain/loud verbal stimuli). No interval change from prior examination. Not following commands. ROS unable to be obtained at this time due to AMS. Objective - Vital Signs/Intake and Output Vital Signs (last 24 hours): Temp Pulse Resp BP Pulse Ox 98.4 F 73 22 161/90 H 100 03/27/17 08:32 03/27/17 08:32 03/27/17 08:32 03/27/17 08:32 03/27/17 08:32 Intake and Output: 03/27/17 03/27/17 06:59 18:59 Intake Total 1680 150 Output Total 800 Balance 880 150 - Medications Medications: Current Medications Acetaminophen (Tylenol 325mg Tab) 650 mg PO Q6 PRN PRN Reason: Fever >100.4 F Last Admin: 03/24/17 17:25 Dose: 650 mg Digoxin (Lanoxin) 0.125 mg NG DAILY@1800 [facility] Last Admin: 03/26/17 17:27 Dose: 0.125 mg Famotidine (Pepcid) 20 mg IVP DAILY [facility] Last Admin: 03/26/17 11:08 Dose: 20 mg Potassium Chloride 10 meq/ (Sodium Chloride) 1,005 mls @ 60 mls/hr IV .[id number] [facility] Last Admin: 03/27/17 09:04 Dose: 60 mls/hr Ciprofloxacin (Cipro 400mg/200ml Dsw) 400 mg in 200 mls @ 133 mls/hr IVPB DAILY @2200 [facility] Last Admin: 03/26/17 21:17 Dose: 133 mls/hr Modafinil (Provigil) 100 mg PO DAILY [facility] Last Admin: 03/26/17 11:08 Dose: 100 mg Potassium Phos/Sodium Phos (Neutra-Phos) 1 pkt PO Q8 [facility] Last Admin: 03/27/17 05:38 Dose: Not Given - Labs Labs: 03/26/17 08:23 03/26/17 08:23 PT 14.1 SECONDS (9.7-12.2) H 03/17/17 06:06 INR 1.3 03/17/17 06:06 APTT 31 SECONDS (21-34) 03/17/17 06:06 - Additional Findings Additional findings: - Constitutional Appears: Non-toxic, Chronically Ill - Head Exam Head Exam: ATRAUMATIC, NORMAL INSPECTION, NORMOCEPHALIC - Eye Exam Eye Exam: absent: Conjunctival injection, Scleral icterus Pupil Exam: PERRL. absent: Irregular, Unequal Additional comments: unable to assess EOMI as not following commands, able to move eyes to avoid direct light challenge for PERRL assessment - ENT Exam ENT Exam: Mucous Membranes Moist. absent: Mucous Membranes Dry - Neck Exam Neck Exam: Passive ROM intact. absent: JVD - Respiratory Exam Respiratory Exam: Clear to Ausculation Bilateral, NORMAL BREATHING PATTERN. absent: Rales, Rhonchi, Wheezes, Respiratory Distress, Stridor - Cardiovascular Exam Cardiovascular Exam: Tachycardia, Irregular Rhythm, +S1, +S2. absent: Bradycardia, REGULAR RHYTHM, RRR - GI/Abdominal Exam GI & Abdominal Exam: Normal Bowel Sounds. absent: Distended - Extremities Exam Extremities Exam: Normal Inspection. absent: Pedal Edema - Neurological Exam Additional comments: Minimally responsive and not following commands, retracts from noxious pain stimuli, some response to loud verbal stimuli. Intermittently moaning but no corresponding to questions or noxious stimuli. Movement and retraction from pain only in left extremities, holding left extremities flaccidly - Skin Skin Exam: Dry, Intact, Normal Color, Warm Assessment and Plan (1) Hemorrhagic stroke Assessment & Plan: 03/26/[address]: no significant interval change in large L parietal temporal hemorrhage with severe mass effect on lateral ventricle midline shift 03/19/17 Venous Duplex- No evidence of superficial or DVT B/L 03/21/17 CT Head- Stable left brain intraparenchymal hemorrhage surrounding with edema and resulting in mass effect on the lateral ventricles and approximately 9.5 millimeter [id number] midline shift . No significant interval change when compared to the previous exam. 03/19/17 CT Head- Re- demonstration of large heterogeneous intraparenchymal hemorrhage at the left temporal and parietal lobe. Interval further worsening of surrounding edema and mass effect as well as [id number] midline shift compared to the previous exam. Effacement of the left basilar cistern. Findings are concern for subfalcine and mild transtentorial herniation. Diffuse effacement of the sulci at the left brain. 03/17/17 CT Head- Increase size large left temporal and parietal hematoma as detailed above. In addition, there is marked increased mass effect with compression of the left lateral ventricle particularly the left temporal horn and shift of the septum pellucidum from left to right. Overlying sulcal effacement. See above discussion for additional findings and details. 03/16/17 CT Head- Acute left temporal lobe hemorrhage and adjacent subarachnoid hemorrhage. -continue supportive care and medical management per primary team -Anticoagulation contraindicated 2/2 to intraparenchymal hemorrhage Status: Acute (2) A-fib Assessment & Plan: -HAS-BLED: 3 (high risk for anticoagulation) -[id number]: Score 8 -hold anticoagulation 2/2 to hemorrhagic stroke -continue rate control with digoxin 0.125mg IV daily 03/20/17 Echo: LVEF 45%, pulm htn with mild LV diastolic dysfxn, dilated LA and RV , mildly reduced systolic fxn, mild to moderate TR, elevated RA pressures, normal size IVC with poor inspiratory collapse 01/23/15 Echo- normal systolic (EF- 74%) and diastolic function, mild mitral regurgitation 03/16/17 EKG- A-fib with RVR (112bpm), occasional PVC, normal QRS duration, prolonged QTc, left axis deviation, non specific ST/T wave changes Case discussed with Dr. Kelly Status: Chronic <Juan Pablo Kelly - Last Filed: 04/26/17 09:32> Objective - Vital Signs/Intake and Output Vital Signs (last 24 hours): Temp Pulse Resp BP Pulse Ox 98.4 F 90 20 126/77 97 03/29/17 15:41 03/29/17 15:41 03/29/17 15:41 03/29/17 15:41 03/29/17 15:41 - Labs Labs: 03/29/17 14:13 03/29/17 14:13 PT 14.8 SECONDS (9.7-12.2) H 03/27/17 11:54 INR 1.3 03/27/17 11:54 APTT 31 SECONDS (21-34) 03/17/17 06:06 Attending/Attestation - Attestation I have personally seen and examined this patient.: Yes I have fully participated in the care of the patient.: Yes I have reviewed all pertinent clinical information, including history, physical exam and plan: Yes Notes (Text): 04/26/17 09:32 no response to pain AMS
[2017-03-27 12:04] LABS: INR 1.3
[2017-03-27 12:09] LABS: HEMATOCRIT 43.6 % (34.0-47.0); MEAN CELL VOLUME 88.8 fL (81.0-99.0); MEAN CORPUSCULAR HEMOGLOBIN 29.6 pg (27.0-31.0); MEAN CORPUSCULAR HGB CONC 33.3 g/dL (33.0-37.0); RED CELL DISTRIBUTION WIDTH 12.9 % (11.5-14.5); WHITE BLOOD COUNT 14.5 K/uL (4.8-10.8)
--- NOTE | 2017-03-27 12:43 | CP.PCM.PN ---
Subjective - Date & Time of Evaluation Date of Evaluation: 03/27/17 Time of Evaluation: 12:40 - Subjective Subjective: patient seen. post PEG- is awake, turns head but has no direct response to call no eye cxontact, non verbal butr not in acute distress been afebrile, noted BP onthe high side today, will onitor Platelet observed along with CBC has no BM for few days as repoorted by MELLO, will try colace when peg feeding starts Objective - Vital Signs/Intake and Output Vital Signs (last 24 hours): Temp Pulse Resp BP Pulse Ox 98.4 F 73 22 161/90 H 100 03/27/17 08:32 03/27/17 08:32 03/27/17 08:32 03/27/17 08:32 03/27/17 08:32 Intake and Output: 03/27/17 03/27/17 06:59 18:59 Intake Total 1680 150 Output Total 800 Balance 880 150 - Medications Medications: Current Medications Acetaminophen (Tylenol 325mg Tab) 650 mg PO Q6 PRN PRN Reason: Fever >100.4 F Last Admin: 03/24/17 17:25 Dose: 650 mg Digoxin (Lanoxin) 0.125 mg NG DAILY@1800 [facility] Last Admin: 03/26/17 17:27 Dose: 0.125 mg Famotidine (Pepcid) 20 mg IVP DAILY [facility] Last Admin: 03/26/17 11:08 Dose: 20 mg Ciprofloxacin (Cipro 400mg/200ml Dsw) 400 mg in 200 mls @ 133 mls/hr IVPB DAILY @2200 [facility] Last Admin: 03/26/17 21:17 Dose: 133 mls/hr Potassium Chloride 10 meq/ (Sodium Chloride) 1,005 mls @ 40 mls/hr IV .Q24H [facility] Modafinil (Provigil) 100 mg PO DAILY [facility] Last Admin: 03/26/17 11:08 Dose: 100 mg Potassium Phos/Sodium Phos (Neutra-Phos) 1 pkt PO Q8 [facility] Last Admin: 03/27/17 05:38 Dose: Not Given - Labs Labs: 03/27/17 11:54 03/26/17 08:23 PT 14.8 SECONDS (9.7-12.2) H 03/27/17 11:54 INR 1.3 03/27/17 11:54 APTT 31 SECONDS (21-34) 03/17/17 06:06 - Constitutional Appears: No Acute Distress - Head Exam Head Exam: ATRAUMATIC, NORMOCEPHALIC - Eye Exam Eye Exam: Normal appearance. absent: Nystagmus - ENT Exam ENT Exam: Mucous Membranes Moist - Neck Exam Neck Exam: Full ROM - Respiratory Exam Respiratory Exam: Clear to Ausculation Bilateral, NORMAL BREATHING PATTERN - Cardiovascular Exam Cardiovascular Exam: Irregular Rhythm - GI/Abdominal Exam GI & Abdominal Exam: Soft (had PEG today ) - Extremities Exam Extremities Exam: absent: Joint Swelling, Pedal Edema - Neurological Exam Neurological Exam: Altered, Awake (flat affect non verbal ) Assessment and Plan - Assessment and Plan (Free Text) Assessment: Patient with Hemorrhagic stroke with righ sided paresis-with alterd consciousness placed on PEG- AFIB controlled BP monitoring Bedridden for placement accordingly family aware of conditon and plan
[2017-03-27 16:53] VITALS: RESP 20
[2017-03-27] MEDS: Digoxin 125 mcg (0.125 mg) Tab NG SCH (17:08)
[2017-03-27] MEDS: Ciprofloxacin 400mg/200ml D5W 400 MG/200 ML BAG IVPB SCH (21:22)
[2017-03-28] MEDS: Potassium & Sodium Phosphate PO SCH ×4 (05:29→22:18)
--- NOTE | 2017-03-28 07:53 | PN ---
DATE: 03/28/2017 NEUROLOGICAL PROBLEM: Dominant hemispheric lobar hemorrhage with significant shift left to the right and effacement of the ventricle. The patient did have a PEG placement. Comfortable, getting medication as well as feeding through the PEG tube. The patient seems to be a little lethargic, arousable and she falls asleep. The rest of the examination is unchanged. Hyperreflexic. Plantars are upgoing on both sides. Continue the present management. No anticoagulation and no antiplatelets for next 4 weeks. Continue DVT prophylaxis with sequential stockings. When medically stable, the patient is a good candidate t o go for rehab or shelter placement. Nelson Gaffney MD cc: [id number] TT: 03/28/2017 07:53:34 Confirmation # [id number] Dictation # [id number]
[2017-03-28] MEDS ORDERED: Potassium Chloride 10 mEq ER Tab PO SCH (08:00)
--- NOTE | 2017-03-28 10:02 | CP.PCM.PN ---
<Will Barrow - Last Filed: 03/28/17 10:18> Subjective - Date & Time of Evaluation Date of Evaluation: 03/28/17 Time of Evaluation: 07:30 - Subjective Subjective: Cardiology Progress Note Dr. Kelly (covering for Dr. Ferguson) Patient seen and examined at the bedside. No acute distress. No acute events overnight per nursing. Post-PEG placement day 2. The patient remains at baseline (minimally responsive to pain/loud verbal stimuli). No interval change from prior examination. Minimally responsive to noxious physical stimuli , but not following commands. ROS unable to be obtained at this time due to AMS. Objective - Vital Signs/Intake and Output Vital Signs (last 24 hours): Temp Pulse Resp BP Pulse Ox 97.5 F L 90 20 156/93 H 96 03/28/17 00:00 03/28/17 00:00 03/28/17 00:00 03/28/17 00:00 03/28/17 00:00 Intake and Output: 03/28/17 03/28/17 06:59 18:59 Intake Total 860 Output Total 1700 Balance -840 - Medications Medications: Current Medications Acetaminophen (Tylenol 325mg Tab) 650 mg PO Q6 PRN PRN Reason: Fever >100.4 F Last Admin: 03/24/17 17:25 Dose: 650 mg Digoxin (Lanoxin) 0.125 mg NG DAILY@1800 [facility] Last Admin: 03/27/17 17:08 Dose: 0.125 mg Docusate Sodium (Colace) 100 mg PEG TID [facility] Last Admin: 03/27/17 17:08 Dose: 100 mg Famotidine (Pepcid) 20 mg IVP DAILY [facility] Last Admin: 03/27/17 12:56 Dose: 20 mg Ciprofloxacin (Cipro 400mg/200ml Dsw) 400 mg in 200 mls @ 133 mls/hr IVPB DAILY @2200 [facility] Last Admin: 03/27/17 21:22 Dose: 133 mls/hr Modafinil (Provigil) 100 mg PO DAILY [facility] Last Admin: 03/27/17 14:26 Dose: 100 mg Potassium Chloride (Potassium Chloride Oral Soln) 10 meq PO DAILY [facility] Potassium Phos/Sodium Phos (Neutra-Phos) 1 pkt PO Q8 [facility] Last Admin: 03/28/17 05:29 Dose: 1 pkt - Labs Labs: 03/27/17 11:54 03/26/17 08:23 PT 14.8 SECONDS (9.7-12.2) H 03/27/17 11:54 INR 1.3 03/27/17 11:54 APTT 31 SECONDS (21-34) 03/17/17 06:06 - Additional Findings Additional findings: - Constitutional Appears: Non-toxic, Chronically Ill, Minimally responsive to noxious stimuli otherwise not following commands or responding - Head Exam Head Exam: ATRAUMATIC, NORMAL INSPECTION, NORMOCEPHALIC - Eye Exam Eye Exam: absent: Conjunctival injection, Scleral icterus Pupil Exam: PERRL. absent: Irregular, Unequal Additional comments: unable to assess EOMI as not following commands, able to move eyes to avoid direct light challenge for PERRL assessment - ENT Exam ENT Exam: Mucous Membranes Moist. absent: Mucous Membranes Dry - Neck Exam Neck Exam: Passive ROM intact. absent: JVD - Respiratory Exam Respiratory Exam: Clear to Ausculation Bilateral, NORMAL BREATHING PATTERN. absent: Rales, Rhonchi, Wheezes, Respiratory Distress, Stridor - Cardiovascular Exam Cardiovascular Exam: Tachycardia, Regular Rhythm, +S1, +S2. absent: Bradycardia , RRR, Irregular Rhythm - GI/Abdominal Exam GI & Abdominal Exam: Normal Bowel Sounds, PEG tube in place with feeds running. absent: Distended - Extremities Exam Extremities Exam: Normal Inspection. absent: Pedal Edema - Neurological Exam Additional comments: Minimally responsive to noxious physical stimuli, not following commands, not opening eyes Movement and retraction from pain only in left extremities, holding right extremities flaccidly - Skin Skin Exam: Dry, Intact, Normal Color, Warm Assessment and Plan (1) Hemorrhagic stroke Assessment & Plan: 03/26/[address]: no significant interval change in large L parietal temporal hemorrhage with severe mass effect on lateral ventricle midline shift 03/19/17 Venous Duplex- No evidence of superficial or DVT B/L 03/21/17 CT Head- Stable left brain intraparenchymal hemorrhage surrounding with edema and resulting in mass effect on the lateral ventricles and approximately 9.5 millimeter [id number] midline shift . No significant interval change when compared to the previous exam. 03/19/17 CT Head- Re- demonstration of large heterogeneous intraparenchymal hemorrhage at the left temporal and parietal lobe. Interval further worsening of surrounding edema and mass effect as well as [id number] midline shift compared to the previous exam. Effacement of the left basilar cistern. Findings are concern for subfalcine and mild transtentorial herniation. Diffuse effacement of the sulci at the left brain. 03/17/17 CT Head- Increase size large left temporal and parietal hematoma as detailed above. In addition, there is marked increased mass effect with compression of the left lateral ventricle particularly the left temporal horn and shift of the septum pellucidum from left to right. Overlying sulcal effacement. See above discussion for additional findings and details. 03/16/17 CT Head- Acute left temporal lobe hemorrhage and adjacent subarachnoid hemorrhage. -continue supportive care and medical management per primary team -Anticoagulation contraindicated 2/2 to intraparenchymal hemorrhage Status: Acute (2) A-fib Assessment & Plan: 03/20/17 Echo: LVEF 45%, pulm htn with mild LV diastolic dysfxn, dilated LA and RV , mildly reduced systolic fxn, mild to moderate TR, elevated RA pressures, normal size IVC with poor inspiratory collapse 01/23/15 Echo- normal systolic (EF- 74%) and diastolic function, mild mitral regurgitation 03/16/17 EKG- A-fib with RVR (112bpm), occasional PVC, normal QRS duration, prolonged QTc, left axis deviation, non specific ST/T wave changes -HAS-BLED: 3 (high risk for anticoagulation) -[id number]: Score 8 -hold anticoagulation 2/2 to hemorrhagic stroke -continue rate control with digoxin 0.125mg IV daily; RRR on exam today Case discussed with Dr. Kelly Status: Chronic <Juan Pablo Kelly - Last Filed: 04/26/17 09:31> Objective - Vital Signs/Intake and Output Vital Signs (last 24 hours): Temp Pulse Resp BP Pulse Ox 98.4 F 90 20 126/77 97 03/29/17 15:41 03/29/17 15:41 03/29/17 15:41 03/29/17 15:41 03/29/17 15:41 - Labs Labs: 03/29/17 14:13 03/29/17 14:13 PT 14.8 SECONDS (9.7-12.2) H 03/27/17 11:54 INR 1.3 03/27/17 11:54 APTT 31 SECONDS (21-34) 03/17/17 06:06 Attending/Attestation - Attestation I have personally seen and examined this patient.: Yes I have fully participated in the care of the patient.: Yes I have reviewed all pertinent clinical information, including history, physical exam and plan: Yes Notes (Text): 04/26/17 09:31 rate control no a/c at this time medically contraindicated
--- NOTE | 2017-03-28 11:52 | CP.PCM.PN ---
Subjective - Date & Time of Evaluation Date of Evaluation: 03/28/17 Time of Evaluation: 11:48 - Subjective Subjective: Patient seen, remained bedridden with AMS, non verbal , no unusual event, tolerating feeding after PEG insertion- roberts sbed in Qsack- discussion with staf Objective - Vital Signs/Intake and Output Vital Signs (last 24 hours): Temp Pulse Resp BP Pulse Ox 97.5 F L 90 20 156/93 H 96 03/28/17 00:00 03/28/17 00:00 03/28/17 00:00 03/28/17 00:00 03/28/17 00:00 Intake and Output: 03/28/17 03/28/17 06:59 18:59 Intake Total 860 Output Total 1700 Balance -840 - Medications Medications: Current Medications Acetaminophen (Tylenol 325mg Tab) 650 mg PO Q6 PRN PRN Reason: Fever >100.4 F Last Admin: 03/24/17 17:25 Dose: 650 mg Amlodipine Besylate (Norvasc) 5 mg PEG DAILY [facility] Digoxin (Lanoxin) 0.125 mg NG DAILY@1800 [facility] Last Admin: 03/27/17 17:08 Dose: 0.125 mg Docusate Sodium (Colace) 100 mg PEG TID [facility] Last Admin: 03/27/17 17:08 Dose: 100 mg Famotidine (Pepcid) 20 mg IVP DAILY [facility] Last Admin: 03/27/17 12:56 Dose: 20 mg Ciprofloxacin (Cipro 400mg/200ml Dsw) 400 mg in 200 mls @ 133 mls/hr IVPB DAILY @2200 [facility] Last Admin: 03/27/17 21:22 Dose: 133 mls/hr Modafinil (Provigil) 100 mg PO DAILY [facility] Last Admin: 03/27/17 14:26 Dose: 100 mg Potassium Chloride (Potassium Chloride Oral Soln) 10 meq PO DAILY [facility] Potassium Phos/Sodium Phos (Neutra-Phos) 1 pkt PO Q8 [facility] Last Admin: 03/28/17 05:29 Dose: 1 pkt - Labs Labs: 03/27/17 11:54 03/26/17 08:23 PT 14.8 SECONDS (9.7-12.2) H 03/27/17 11:54 INR 1.3 03/27/17 11:54 APTT 31 SECONDS (21-34) 03/17/17 06:06 - Constitutional Appears: No Acute Distress - Head Exam Head Exam: ATRAUMATIC, NORMOCEPHALIC - Eye Exam Eye Exam: Normal appearance. absent: Nystagmus - ENT Exam ENT Exam: Mucous Membranes Moist - Respiratory Exam Respiratory Exam: Clear to Ausculation Bilateral, NORMAL BREATHING PATTERN - Cardiovascular Exam Cardiovascular Exam: Irregular Rhythm - GI/Abdominal Exam GI & Abdominal Exam: Soft, Normal Bowel Sounds. absent: Distended (peg no spoiling ) - Extremities Exam Extremities Exam: absent: Joint Swelling, Pedal Edema, Tenderness - Back Exam Back Exam: rash noted (sacral area ) Assessment and Plan - Assessment and Plan (Free Text) Assessment: Patient with Hemorrjhagic stroke, with AMS with right side paresis- need blanket washer care- to be transferred to [place]- daughter notied discussed with staff Chronic Hypokalemia- she will need transfusion Uti to complete 10 days of antibiotic and to shift to PO toda Afib contoinue digoxen check level episodically Care as per [place]
--- NOTE | 2017-03-28 11:55 | CP.PCM.DIS ---
Provider - Provider Date of Admission: 03/16/17 18:52 Attending physician: Katia Park MD Time Spent in preparation of Discharge (in minutes): 30 Hospital Course - Lab Results Lab Results: Micro Results 03/21/17 Unknown Urine,Catheterized Urine Culture - Final Escherichia Coli 03/16/17 22:19 Naris MRSA Culture (Admit) - Final MRSA NOT DETECTED Most Recent Lab Values WBC 14.5 K/uL (4.8-10.8) H 03/27/17 11:54 RBC 4.91 Mil/uL (3.80-5.20) 03/27/17 11:54 Hgb 14.5 g/dL (11.0-16.0) 03/27/17 11:54 Hct 43.6 % (34.0-47.0) 03/27/17 11:54 MCV 88.8 fL (81.0-99.0) 03/27/17 11:54 MCH 29.6 pg (27.0-31.0) 03/27/17 11:54 MCHC 33.3 g/dL (33.0-37.0) 03/27/17 11:54 RDW 12.9 % (11.5-14.5) 03/27/17 11:54 Plt Count 562 K/uL (130-400) H D 03/27/17 11:54 MPV 7.0 fL (7.2-11.7) L 03/27/17 11:54 Neut % (Auto) 83.0 % (50.0-75.0) H 03/26/17 08:23 Lymph % (Auto) 4.7 % (20.0-40.0) L 03/26/17 08:23 Cottle % (Auto) 10.7 % (0.0-10.0) H 03/26/17 08:23 Eos % (Auto) 0.8 % (0.0-4.0) 03/26/17 08:23 Baso % (Auto) 0.8 % (0.0-2.0) 03/26/17 08:23 Neut # 11.0 K/uL (1.8-7.0) H 03/26/17 08:23 Lymph # 0.6 K/uL (1.0-4.3) L 03/26/17 08:23 Cottle # 1.4 K/uL (0.0-0.8) H 03/26/17 08:23 Eos # 0.1 K/uL (0.0-0.7) 03/26/17 08:23 Baso # 0.1 K/uL (0.0-0.2) 03/26/17 08:23 Neutrophils % (Manual) 87 % (50-75) H 03/26/17 08:23 Band Neutrophils % 1 % (0-2) 03/26/17 08:23 Lymphocytes % (Manual) 3 % (20-40) L 03/26/17 08:23 Monocytes % (Manual) 8 % (0-10) 03/26/17 08:23 Eosinophils % (Manual) 1 % (0-4) 03/26/17 08:23 Basophils % (Manual) 1 % (0-2) 03/20/17 06:29 Platelet Estimate Normal (NORMAL) 03/26/17 08:23 RBC Morphology Normal 03/26/17 08:23 PT 14.8 SECONDS (9.7-12.2) H 03/27/17 11:54 INR 1.3 03/27/17 11:54 APTT 31 SECONDS (21-34) 03/17/17 06:06 Sodium 133 mmol/L (132-148) 03/26/17 08:23 Potassium 3.6 mmol/L (3.6-5.2) 03/26/17 08:23 Chloride 98 mmol/L (98-107) 03/26/17 08:23 Carbon Dioxide 27 mmol/L (22-30) 03/26/17 08:23 Anion Gap 11 (10-20) 03/26/17 08:23 BUN 14 mg/dL (7-17) 03/26/17 08:23 Creatinine 0.4 MG/DL (0.7-1.2) L 03/26/17 08:23 Est GFR ( Amer) > 60 03/26/17 08:23 Est GFR (Non-Af Amer) > 60 03/26/17 08:23 POC Glucose (mg/dL) 113 mg/dL (65-110) H 03/18/17 11:42 Random Glucose 147 mg/dL (65-105) H 03/26/17 08:23 Hemoglobin A1c 5.5 % (4.2-6.5) 03/19/17 06:32 Calcium 8.6 mg/dl (8.6-10.4) 03/26/17 08:23 Phosphorus 4.0 mg/dL (2.5-4.5) 03/21/17 06:27 Magnesium 2.0 mg/dL (1.6-2.3) 03/21/17 06:27 Total Bilirubin 0.5 mg/dL (0.2-1.3) 03/26/17 08:23 AST 28 U/L (14-36) 03/26/17 08:23 ALT 34 U/L (9-52) 03/26/17 08:23 Alkaline Phosphatase 85 U/L (38-126) 03/26/17 08:23 Troponin I < 0.0120 ng/mL (0.00-0.120) 03/16/17 18:51 Total Protein 6.3 g/dL (6.3-8.3) 03/26/17 08:23 Albumin 3.0 g/dL (3.5-5.0) L 03/26/17 08:23 Globulin 3.3 gm/dL (2.2-3.9) 03/26/17 08:23 Albumin/Globulin Ratio 0.9 (1.0-2.1) L 03/26/17 08:23 Triglycerides 89 mg/dL (0-149) 03/16/17 18:51 Cholesterol 149 mg/dL (0-199) 03/16/17 18:51 LDL Cholesterol Direct 50 mg/dL (0-129) 03/16/17 18:51 HDL Cholesterol 86 mg/dL (30-70) H 03/16/17 18:51 Urine Color Yellow (YELLOW) 03/21/17 08:48 Urine Clarity Hazy (Clear) 03/21/17 08:48 Urine pH 7.0 (5.0-8.0) 03/21/17 08:48 Ur Specific Orange 1.017 (1.003-1.030) 03/21/17 08:48 Urine Protein Negative mg/dL (NEGATIVE) 03/21/17 08:48 Urine Glucose (UA) Normal mg/dL (Normal) 03/21/17 08:48 Urine Ketones Negative mg/dL (NEGATIVE) 03/21/17 08:48 Urine Blood 1+ (NEGATIVE) H 03/21/17 08:48 Urine Nitrate Negative (NEGATIVE) 03/21/17 08:48 Urine Bilirubin Negative (NEGATIVE) 03/21/17 08:48 Urine Urobilinogen 4.0 mg/dL (0.2-1.0) H 03/21/17 08:48 Ur Leukocyte Esterase Trace Palma/uL (Negative) 03/21/17 08:48 Urine WBC (Auto) 9 /hpf (0-5) H 03/21/17 08:48 Urine RBC (Auto) 35 /hpf (0-3) H 03/21/17 08:48 Ur Squamous Epith Cells < 1 /hpf (0-5) 03/18/17 09:59 Amorphous Sediment Rare /ul (<OCC) H 03/21/17 08:48 Urine Bacteria Occ (<OCC) H 03/21/17 08:48 Digoxin < 0.4 ng/mL (0.8-2.0) L 03/16/17 21:02 Blood Type B NEGATIVE 03/16/17 19:28 Antibody Screen Negative 03/16/17 19:28 - Hospital Course Hospital Course: admitted for hemorrhagic stroke- seen by Neurosurgeion but is poor candidate for surgery- patient as per family wishes no further proceure to prolong her sufferings she wremained bedridden with AMS , with no unusal events, Afib controlled on digoxin UTI treated with antibiotic Chronic hypokalemia - for supplementation chronically Discharge Exam - Head Exam Head Exam: ATRAUMATIC, NORMOCEPHALIC - Eye Exam Eye Exam: absent: Nystagmus, Periorbital swelling - ENT Exam ENT Exam: Mucous Membranes Moist - Neck Exam Neck exam: Full Rom - Respiratory Exam Respiratory Exam: Clear to PA & Lateral, NORMAL BREATHING PATTERN - Cardiovascular Exam Cardiovascular Exam: Irregular Rhythm - GI/Abdominal Exam GI & Abdominal Exam: Normal Bowel Sounds, Soft. absent: Distended - Neurological Exam Neurological exam: Altered - Psychiatric Exam Psychiatric exam: Flat Affect Discharge Plan - Follow Up Plan Condition: GUARDED Disposition: REHAB FACILITY/REHAB UNIT
[2017-03-28] MEDS: Potassium Chloride 20 mEq/15 ml LIQ UD PO SCH (11:56)
--- NOTE | 2017-03-28 12:04 | CP.PCM.PN ---
Subjective - Date & Time of Evaluation Date of Evaluation: 03/28/17 Time of Evaluation: 12:01 - Subjective Subjective: CC: Follow up PEG PEG yesterday. Tolerating feeds. No fevers. Discussed with RN and attending MD. Objective - Vital Signs/Intake and Output Vital Signs (last 24 hours): Temp Pulse Resp BP Pulse Ox 97.5 F L 90 20 156/93 H 96 03/28/17 00:00 03/28/17 00:00 03/28/17 00:00 03/28/17 00:00 03/28/17 00:00 Intake and Output: 03/28/17 03/28/17 06:59 18:59 Intake Total 860 Output Total 1700 Balance -840 - Medications Medications: Current Medications Acetaminophen (Tylenol 325mg Tab) 650 mg PO Q6 PRN PRN Reason: Fever >100.4 F Last Admin: 03/24/17 17:25 Dose: 650 mg Amlodipine Besylate (Norvasc) 5 mg PEG DAILY [facility] Digoxin (Lanoxin) 0.125 mg NG DAILY@1800 [facility] Last Admin: 03/27/17 17:08 Dose: 0.125 mg Docusate Sodium (Colace) 100 mg PEG TID [facility] Last Admin: 03/28/17 11:56 Dose: Not Given Famotidine (Pepcid) 20 mg IVP DAILY [facility] Last Admin: 03/28/17 11:55 Dose: 20 mg Ciprofloxacin (Cipro 400mg/200ml Dsw) 400 mg in 200 mls @ 133 mls/hr IVPB DAILY @2200 [facility] Last Admin: 03/27/17 21:22 Dose: 133 mls/hr Modafinil (Provigil) 100 mg PO DAILY [facility] Last Admin: 03/28/17 11:55 Dose: 100 mg Potassium Chloride (Potassium Chloride Oral Soln) 10 meq PO DAILY [facility] Last Admin: 03/28/17 11:56 Dose: 10 meq Potassium Phos/Sodium Phos (Neutra-Phos) 1 pkt PO Q8 [facility] Last Admin: 03/28/17 05:29 Dose: 1 pkt - Labs Labs: 03/27/17 11:54 03/26/17 08:23 PT 14.8 SECONDS (9.7-12.2) H 03/27/17 11:54 INR 1.3 03/27/17 11:54 APTT 31 SECONDS (21-34) 03/17/17 06:06 - Constitutional Appears: Chronically Ill - Head Exam Head Exam: NORMOCEPHALIC - Respiratory Exam Respiratory Exam: NORMAL BREATHING PATTERN - Cardiovascular Exam Cardiovascular Exam: REGULAR RHYTHM - GI/Abdominal Exam GI & Abdominal Exam: Soft, Normal Bowel Sounds (GT intact, clean, dry. Mild incisional tenderness without rebound or guarding) Assessment and Plan (1) Hemorrhagic stroke Status: Acute (2) Dysphagia Assessment & Plan: PEG in place Advance feeds to goal as tolerated Status: Acute
[2017-03-28] MEDS: Digoxin 125 mcg (0.125 mg) Tab NG SCH (18:39)
[2017-03-28] MEDS: Ciprofloxacin 400mg/200ml D5W 400 MG/200 ML BAG IVPB SCH (22:30)
[2017-03-29] MEDS: Potassium & Sodium Phosphate PO SCH ×2 (06:27→15:11)
--- NOTE | 2017-03-29 09:43 | CP.PCM.PN ---
Addendum entered and electronically signed by Kaya Jordan DO 03/29/17 13:10 : Cardizem 60 TID starting now. D/C cardizem CD because non crushable Addendum entered and electronically signed by Kaya Jordan DO 03/29/17 10:47 : Discussed with Dr. Park re: SIRS. repeat U/A, urine culture, and Blood culture x 2 will be drawn. Result of blood cultures will be faxed to Dr. Park. Original Note: <Kaya Jordan - Last Filed: 03/29/17 10:07> Subjective - Date & Time of Evaluation Date of Evaluation: 03/29/17 Time of Evaluation: 09:41 - Subjective Subjective: PGY-[address] Kelly. Pt HR is 110 now. HR 121-135 overnight. Rectal Temp 99.4. WBC 14.5. No cellulitis/phelbitis observed around PEG or #22 L arm. Schofield was d/c last night. Objective - Vital Signs/Intake and Output Vital Signs (last 24 hours): Temp Pulse Resp BP Pulse Ox 99.4 F 101 H 20 123/83 95 03/29/17 09:31 03/29/17 08:07 03/29/17 08:07 03/29/17 08:07 03/29/17 08:07 Intake and Output: 03/29/17 03/29/17 06:59 18:59 Output Total 400 Balance -400 - Medications Medications: Current Medications Acetaminophen (Tylenol 325mg Tab) 650 mg PO Q6 PRN PRN Reason: Fever >100.4 F Last Admin: 03/24/17 17:25 Dose: 650 mg Amlodipine Besylate (Norvasc) 5 mg PEG DAILY [facility] Last Admin: 03/28/17 13:22 Dose: 5 mg Digoxin (Lanoxin) 0.125 mg NG DAILY@1800 [facility] Last Admin: 03/28/17 18:39 Dose: 0.125 mg Docusate Sodium (Colace) 100 mg PEG TID [facility] Last Admin: 03/28/17 18:39 Dose: 100 mg Famotidine (Pepcid) 20 mg IVP DAILY [facility] Last Admin: 03/28/17 11:55 Dose: 20 mg Ciprofloxacin (Cipro 400mg/200ml Dsw) 400 mg in 200 mls @ 133 mls/hr IVPB DAILY @2200 [facility] Last Admin: 03/28/17 22:30 Dose: 133 mls/hr Modafinil (Provigil) 100 mg PO DAILY [facility] Last Admin: 03/28/17 11:55 Dose: 100 mg Potassium Chloride (Potassium Chloride Oral Soln) 10 meq PO DAILY [facility] Last Admin: 03/28/17 11:56 Dose: 10 meq Potassium Phos/Sodium Phos (Neutra-Phos) 1 pkt PO Q8 [facility] Last Admin: 03/29/17 06:27 Dose: 1 pkt - Labs Labs: 03/27/17 11:54 03/26/17 08:23 PT 14.8 SECONDS (9.7-12.2) H 03/27/17 11:54 INR 1.3 03/27/17 11:54 APTT 31 SECONDS (21-34) 03/17/17 06:06 - Constitutional Appears: No Acute Distress - Head Exam Head Exam: ATRAUMATIC, NORMOCEPHALIC - Eye Exam Eye Exam: Normal appearance, PERRL - ENT Exam ENT Exam: Mucous Membranes Moist - Respiratory Exam Respiratory Exam: Clear to Ausculation Bilateral, NORMAL BREATHING PATTERN. absent: Rales, Rhonchi - Cardiovascular Exam Cardiovascular Exam: Tachycardia, Irregular Rhythm, +S1, +S2 - GI/Abdominal Exam GI & Abdominal Exam: Soft, Normal Bowel Sounds. absent: Tenderness Additional comments: PEG intact, no leakage - Extremities Exam Extremities Exam: Normal Capillary Refill. absent: Pedal Edema - Neurological Exam Additional comments: open eyes spontaneously, respond to pain - Psychiatric Exam Psychiatric exam: Normal Affect, Normal Mood - Skin Skin Exam: Dry, Warm Assessment and Plan - Assessment and Plan (Free Text) Plan: (1) A-fib - Digoxin 0.125 HS - Add Cardizem CD 180 daily - D/C Norvasc -HAS-BLED: 3 (high risk for anticoagulation) -[id number]: Score 8 -hold anticoagulation / to hemorrhagic stroke 03/20/17 Echo: LVEF 45%, pulm htn with mild LV diastolic dysfxn, dilated LA and RV , mildly reduced systolic fxn, mild to moderate TR, elevated RA pressures, normal size IVC with poor inspiratory collapse 01/23/15 Echo- normal systolic (EF- 74%) and diastolic function, mild mitral regurgitation 4/28/17 EKG- A-fib with RVR (112bpm), occasional PVC, normal QRS duration, prolonged QTc, left axis deviation, non specific ST/T wave changes (2) Hemorrhagic stroke 03/26/[address]: no significant interval change in large L parietal temporal hemorrhage with severe mass effect on lateral ventricle midline shift 03/19/17 Venous Duplex- No evidence of superficial or DVT B/L 03/21/17 CT Head- Stable left brain intraparenchymal hemorrhage surrounding with edema and resulting in mass effect on the lateral ventricles and approximately 9.5 millimeter [id number] midline shift . No significant interval change when compared to the previous exam. 03/19/17 CT Head- Re- demonstration of large heterogeneous intraparenchymal hemorrhage at the left temporal and parietal lobe. Interval further worsening of surrounding edema and mass effect as well as [id number] midline shift compared to the previous exam. Effacement of the left basilar cistern. Findings are concern for subfalcine and mild transtentorial herniation. Diffuse effacement of the sulci at the left brain. 03/17/17 CT Head- Increase size large left temporal and parietal hematoma as detailed above. In addition, there is marked increased mass effect with compression of the left lateral ventricle particularly the left temporal horn and shift of the septum pellucidum from left to right. Overlying sulcal effacement. See above discussion for additional findings and details. 03/16/17 CT Head- Acute left temporal lobe hemorrhage and adjacent subarachnoid hemorrhage. -continue supportive care and medical management per primary team -Anticoagulation contraindicated 2/2 to intraparenchymal hemorrhage S/R/D/w Dr. Kelly <Juan Pablo Kelly A - Last Filed: 04/26/17 09:30> Objective - Vital Signs/Intake and Output Vital Signs (last 24 hours): Temp Pulse Resp BP Pulse Ox 98.4 F 90 20 126/77 97 03/29/17 15:41 03/29/17 15:41 03/29/17 15:41 03/29/17 15:41 03/29/17 15:41 - Labs Labs: 03/29/17 14:13 03/29/17 14:13 PT 14.8 SECONDS (9.7-12.2) H 03/27/17 11:54 INR 1.3 03/27/17 11:54 APTT 31 SECONDS (21-34) 03/17/17 06:06 Attending/Attestation - Attestation I have personally seen and examined this patient.: Yes I have fully participated in the care of the patient.: Yes I have reviewed all pertinent clinical information, including history, physical exam and plan: Yes Notes (Text): 04/26/17 09:30 d/c IV cardizem start PO cardizem
[2017-03-29] MEDS ORDERED: diltiaZEM 180 mg/24 Hours CD Cap PO SCH (10:00)
--- NOTE | 2017-03-29 11:40 | CP.PCM.PN ---
Subjective - Date & Time of Evaluation Date of Evaluation: 03/29/17 Time of Evaluation: 11:00 - Subjective Subjective: Patient seen, , chronically bedridden quiet, non verbal, tolerating Peg feeding rapid fibrillation noted overnight- WBC has increased mild temperature, but clinically, patient status is the same as with the previous days. Objective - Vital Signs/Intake and Output Vital Signs (last 24 hours): Temp Pulse Resp BP Pulse Ox 99.4 F 110 H 20 123/83 95 03/29/17 09:31 03/29/17 09:52 03/29/17 08:07 03/29/17 08:07 03/29/17 08:07 Intake and Output: 03/29/17 03/29/17 06:59 18:59 Output Total 400 Balance -400 - Medications Medications: Current Medications Acetaminophen (Tylenol 325mg Tab) 650 mg PO Q6 PRN PRN Reason: Fever >100.4 F Last Admin: 03/24/17 17:25 Dose: 650 mg Digoxin (Lanoxin) 0.125 mg NG DAILY@1800 [facility] Last Admin: 03/28/17 18:39 Dose: 0.125 mg Diltiazem HCl (Cardizem Cd) 180 mg PO DAILY [facility] Docusate Sodium (Colace) 100 mg PEG TID [facility] Last Admin: 03/28/17 18:39 Dose: 100 mg Famotidine (Pepcid) 20 mg IVP DAILY [facility] Last Admin: 03/28/17 11:55 Dose: 20 mg Ciprofloxacin (Cipro 400mg/200ml Dsw) 400 mg in 200 mls @ 133 mls/hr IVPB DAILY @2200 [facility] Last Admin: 03/28/17 22:30 Dose: 133 mls/hr Modafinil (Provigil) 100 mg PO DAILY [facility] Last Admin: 03/28/17 11:55 Dose: 100 mg Potassium Chloride (Potassium Chloride Oral Soln) 10 meq PO DAILY [facility] Last Admin: 03/28/17 11:56 Dose: 10 meq Potassium Phos/Sodium Phos (Neutra-Phos) 1 pkt PO Q8 [facility] Last Admin: 03/29/17 06:27 Dose: 1 pkt - Labs Labs: 03/27/17 11:54 03/26/17 08:23 PT 14.8 SECONDS (9.7-12.2) H 03/27/17 11:54 INR 1.3 03/27/17 11:54 APTT 31 SECONDS (21-34) 03/17/17 06:06 - Constitutional Appears: No Acute Distress (same, bedridden, quiet) - Head Exam Head Exam: ATRAUMATIC, NORMOCEPHALIC - Eye Exam Eye Exam: Normal appearance. absent: Nystagmus - ENT Exam ENT Exam: Mucous Membranes Moist - Neck Exam Neck Exam: Full ROM (turns head ) - Respiratory Exam Respiratory Exam: Clear to Ausculation Bilateral, NORMAL BREATHING PATTERN - Cardiovascular Exam Cardiovascular Exam: Irregular Rhythm - GI/Abdominal Exam GI & Abdominal Exam: Soft, Normal Bowel Sounds - Back Exam Back Exam: rash noted (no ulcer) - Neurological Exam Neurological Exam: Altered, Awake Neuro motor strength exam: Right Upper Extremity: 0, Right Lower Extremity: 0 - Psychiatric Exam Psychiatric exam: Flat Affect - Skin Skin Exam: Intact, Normal Color Assessment and Plan - Assessment and Plan (Free Text) Assessment: Patient with Hemorrhagic Stroke with AMS - for fpc care with episode of rapid afib, slight temperature, increase in WBC- will resume IV cipro , repeat Urine and blood culture Afib- as per cardio- meds adjusted UTI- on Cipro Debility, failure to thrive, fpc care
[2017-03-29] MEDS: Potassium Chloride 20 mEq/15 ml LIQ UD PO SCH (12:55)
[2017-03-29 14:31] LABS: BASO # 0.1 K/uL (0.0-0.2); BASO % 0.4 % (0.0-2.0); EOS % 0.3 % (0.0-4.0); LYMPH # 0.8 K/uL (1.0-4.3); LYMPH % 5.4 % (20.0-40.0); MEAN CELL VOLUME 89.3 fL (81.0-99.0); MEAN CORPUSCULAR HEMOGLOBIN 29.6 pg (27.0-31.0); MEAN CORPUSCULAR HGB CONC 33.2 g/dL (33.0-37.0); MONO # 1.3 K/uL (0.0-0.8); MONO % 8.3 % (0.0-10.0); PLATELET COUNT 575 K/uL (130-400); RED CELL DISTRIBUTION WIDTH 13.7 % (11.5-14.5); WHITE BLOOD COUNT 15.4 K/uL (4.8-10.8)
[2017-03-29 14:40] LABS: CHLORIDE 97 mmol/L (98-107); POTASSIUM 3.8 mmol/L (3.6-5.2); SODIUM 133 mmol/L (132-148)
[2017-03-29 14:43] LABS: ALKALINE PHOSPHATASE 84 U/L (38-126); ALT/SGPT 21 U/L (9-52); AST/SGOT 37 U/L (14-36); BLOOD UREA NITROGEN 24 mg/dL (7-17); CARBON DIOXIDE 28 mmol/L (22-30); GFR AFRICAN-AMERICAN > 60; GLUCOSE,RANDOM 129 mg/dL (65-105); TOTAL PROTEIN 6.3 g/dL (6.3-8.3)
[2017-03-29 14:44] LABS: CALCIUM 8.1 mg/dl (8.6-10.4)
[2017-03-29 15:15] LABS: NEUTROPHIL 84 % (50-75); TOTAL CELLS COUNTED 100
[2017-03-29 15:46] VITALS: BP 126/77; PULSE 90; TEMP 98.4; O2SAT 97
[2017-03-29 17:50] VITALS: PULSE 88
[2017-03-29] MEDS: Digoxin 125 mcg (0.125 mg) Tab NG SCH (17:50)
[2017-03-29 21:18] LABS: RBC URINE 5 /hpf (0-3); URINE BACTERIA FEW (<OCC); URINE BILIRUBIN NEGATIVE (NEGATIVE); URINE BLOOD NEGATIVE (NEGATIVE); URINE GLUCOSE (UA) NORMAL (Normal); URINE KETONE NEGATIVE (NEGATIVE); URINE LEUKOCYTE ESTERASE 1+ Leu/uL (Negative); URINE PROTEIN NEGATIVE (NEGATIVE); WBC URINE 19 /hpf (0-5)
[2017-03-29 21:20] LABS: URINE COLOR YELLOW (YELLOW)
[2017-03-29] MEDS ORDERED: POLYETHYLENE GLYCOL 3350 17 GM/Dose PACKET PO PRN (22:00)
--- NOTE | 2017-03-30 15:13 | CP.PCM.DIS ---
Provider - Provider Date of Admission: 03/16/17 18:52 Attending physician: Katia Park MD Time Spent in preparation of Discharge (in minutes): 30 Hospital Course - Lab Results Lab Results: Micro Results 03/29/17 11:39 Blood S.aureus & Coag-Neg Staph PNA FISH - Final 03/29/17 11:39 Blood Blood Culture - Preliminary Gram Positive Cocci 03/29/17 11:39 Blood Gram Stain - Final 03/29/17 15:50 Urine,Catheterized Urine Culture - Preliminary Gram Positive Cocci 03/21/17 Unknown Urine,Catheterized Urine Culture - Final Escherichia Coli 03/16/17 22:19 Naris MRSA Culture (Admit) - Final MRSA NOT DETECTED Most Recent Lab Values WBC 15.4 K/uL (4.8-10.8) H 03/29/17 14:13 RBC 4.93 Mil/uL (3.80-5.20) 03/29/17 14:13 Hgb 14.6 g/dL (11.0-16.0) 03/29/17 14:13 Hct 44.0 % (34.0-47.0) 03/29/17 14:13 MCV 89.3 fL (81.0-99.0) 03/29/17 14:13 MCH 29.6 pg (27.0-31.0) 03/29/17 14:13 MCHC 33.2 g/dL (33.0-37.0) 03/29/17 14:13 RDW 13.7 % (11.5-14.5) 03/29/17 14:13 Plt Count 575 K/uL (130-400) H 03/29/17 14:13 MPV 7.0 fL (7.2-11.7) L 03/29/17 14:13 Neut % (Auto) 85.6 % (50.0-75.0) H 03/29/17 14:13 Lymph % (Auto) 5.4 % (20.0-40.0) L 03/29/17 14:13 Graves % (Auto) 8.3 % (0.0-10.0) 03/29/17 14:13 Eos % (Auto) 0.3 % (0.0-4.0) 03/29/17 14:13 Baso % (Auto) 0.4 % (0.0-2.0) 03/29/17 14:13 Neut # 13.2 K/uL (1.8-7.0) H 03/29/17 14:13 Lymph # 0.8 K/uL (1.0-4.3) L 03/29/17 14:13 Graves # 1.3 K/uL (0.0-0.8) H 03/29/17 14:13 Eos # 0.0 K/uL (0.0-0.7) 03/29/17 14:13 Baso # 0.1 K/uL (0.0-0.2) 03/29/17 14:13 Neutrophils % (Manual) 84 % (50-75) H 03/29/17 14:13 Band Neutrophils % 1 % (0-2) 03/29/17 14:13 Lymphocytes % (Manual) 8 % (20-40) L 03/29/17 14:13 Monocytes % (Manual) 7 % (0-10) 03/29/17 14:13 Eosinophils % (Manual) 1 % (0-4) 03/26/17 08:23 Basophils % (Manual) 1 % (0-2) 03/20/17 06:29 Platelet Estimate Slightly increased (NORMAL) H 03/29/17 14:13 RBC Morphology Normal 03/29/17 14:13 PT 14.8 SECONDS (9.7-12.2) H 03/27/17 11:54 INR 1.3 03/27/17 11:54 APTT 31 SECONDS (21-34) 03/17/17 06:06 Sodium 133 mmol/L (132-148) 03/29/17 14:13 Potassium 3.8 mmol/L (3.6-5.2) 03/29/17 14:13 Chloride 97 mmol/L (98-107) L 03/29/17 14:13 Carbon Dioxide 28 mmol/L (22-30) 03/29/17 14:13 Anion Gap 12 (10-20) 03/29/17 14:13 BUN 24 mg/dL (7-17) H 03/29/17 14:13 Creatinine 0.4 MG/DL (0.7-1.2) L 03/29/17 14:13 Est GFR ( Amer) > 60 03/29/17 14:13 Est GFR (Non-Af Amer) > 60 03/29/17 14:13 POC Glucose (mg/dL) 113 mg/dL (65-110) H 03/18/17 11:42 Random Glucose 129 mg/dL (65-105) H 03/29/17 14:13 Hemoglobin A1c 5.5 % (4.2-6.5) 03/19/17 06:32 Calcium 8.1 mg/dl (8.6-10.4) L 03/29/17 14:13 Phosphorus 4.0 mg/dL (2.5-4.5) 03/21/17 06:27 Magnesium 2.0 mg/dL (1.6-2.3) 03/21/17 06:27 Total Bilirubin 1.0 mg/dL (0.2-1.3) 03/29/17 14:13 AST 37 U/L (14-36) H D 03/29/17 14:13 ALT 21 U/L (9-52) 03/29/17 14:13 Alkaline Phosphatase 84 U/L (38-126) 03/29/17 14:13 Troponin I < 0.0120 ng/mL (0.00-0.120) 03/16/17 18:51 Total Protein 6.3 g/dL (6.3-8.3) 03/29/17 14:13 Albumin 3.1 g/dL (3.5-5.0) L 03/29/17 14:13 Globulin 3.2 gm/dL (2.2-3.9) 03/29/17 14:13 Albumin/Globulin Ratio 1.0 (1.0-2.1) 03/29/17 14:13 Triglycerides 89 mg/dL (0-149) 03/16/17 18:51 Cholesterol 149 mg/dL (0-199) 03/16/17 18:51 LDL Cholesterol Direct 50 mg/dL (0-129) 03/16/17 18:51 HDL Cholesterol 86 mg/dL (30-70) H 03/16/17 18:51 Urine Color Yellow (YELLOW) 03/29/17 20:54 Urine Clarity Hazy (Clear) 03/29/17 20:54 Urine pH 6.0 (5.0-8.0) 03/29/17 20:54 Ur Specific [place] 1.021 (1.003-1.030) 03/29/17 20:54 Urine Protein Negative mg/dL (NEGATIVE) 03/29/17 20:54 Urine Glucose (UA) Normal mg/dL (Normal) 03/29/17 20:54 Urine Ketones Negative mg/dL (NEGATIVE) 03/29/17 20:54 Urine Blood Negative (NEGATIVE) 03/29/17 20:54 Urine Nitrate Negative (NEGATIVE) 03/29/17 20:54 Urine Bilirubin Negative (NEGATIVE) 03/29/17 20:54 Urine Urobilinogen 4.0 mg/dL (0.2-1.0) H 03/29/17 20:54 Ur Leukocyte Esterase 1+ Palma/uL (Negative) H 03/29/17 20:54 Urine WBC (Auto) 19 /hpf (0-5) H 03/29/17 20:54 Urine RBC (Auto) 5 /hpf (0-3) H 03/29/17 20:54 Ur Squamous Epith Cells < 1 /hpf (0-5) 03/29/17 20:54 Amorphous Sediment Rare /ul (<OCC) H 03/21/17 08:48 Urine Bacteria Few (<OCC) H 03/29/17 20:54 Digoxin < 0.4 ng/mL (0.8-2.0) L 03/16/17 21:02 Blood Type B NEGATIVE 03/16/17 19:28 Antibody Screen Negative 03/16/17 19:28 - Hospital Course Hospital Course: admitted for hemorrhagic stroke- with follow up Ct -enlarging -lates pne -stable - has AMS but is awake, stya was uneventful, treated AFIB,UTI,Hypokalemia, tplaced on PEG and transferred to [place] Discharge Exam - Head Exam Head Exam: ATRAUMATIC, NORMOCEPHALIC - Eye Exam Eye Exam: Normal appearance. absent: Nystagmus - ENT Exam ENT Exam: Mucous Membranes Moist - Neck Exam Neck exam: Full Rom (turns head spontaneously) - Respiratory Exam Respiratory Exam: Clear to PA & Lateral, NORMAL BREATHING PATTERN - Cardiovascular Exam Cardiovascular Exam: Irregular Rhythm - GI/Abdominal Exam GI & Abdominal Exam: Normal Bowel Sounds, Soft. absent: Distended - Extremities Exam Extremities exam: pedal pulses present - Neurological Exam Neurological exam: Altered - Psychiatric Exam Psychiatric exam: Flat Affect - Skin Skin Exam: Intact, Normal Color Discharge Plan - Discharge Medications Prescriptions: Ciprofloxacin Lactate [Ciprofloxacin] 400 mg IV Q12 7 Days - Follow Up Plan Condition: GUARDED Disposition: REHAB FACILITY/REHAB UNIT Instructions: How to Use and Care for Your PEG Tube (DC), Hemorrhagic Stroke ( DC), Self Care Measures After a Stroke (DC) Additional Instructions: PLEASE ADMIT PATIENT UNDER DR. DONITA THOMPSON . PLEASE CALL DR. THOMPSON UPON PATIENT ARRIVAL TO THE FACILITY PEG TUBE FEEDING ISSOURCE 1.5 AT 40 ML/HR CHECK DIGOXIN LEVEL 2/ MONTH , BMP Q WEEKLY CONTINUE MEDICATION PER MED. REC.
== END 2017-03-29 18:25 | DRG 64 ==
LOC: C.ER 18:03 → C.9E 18:52 → C.9I 21:06 → C.5T 03-22 01:23
PROVIDERS: ADMIT Internal Medicine; ATTEND Internal Medicine
PROC: 3E0G76Z Introduction of Nutritional Substance into Upper GI, Via Natural or Artificial Opening (ICD-10-PCS; 2017-03-27)
PROC: 0DH63UZ Insertion of Feeding Device into Stomach, Percutaneous Approach (ICD-10-PCS; principal; 2017-03-27 07:30)
DX: I61.8 Other nontraumatic intracerebral hemorrhage (principal); G93.6 Cerebral edema; G81.91 Hemiplegia, unspecified affecting right dominant side; E85.4 Organ-limited amyloidosis; M41.9 Scoliosis, unspecified; I82.591 Chronic embolism and thrombosis of other specified deep vein of right lower extremity; H53.461 Homonymous bilateral field defects, right side; H33.20 Serous retinal detachment, unspecified eye; N39.0 Urinary tract infection, site not specified; F01.50 Vascular dementia, unspecified severity, without behavioral disturbance, psychotic disturbance, mood disturbance, and anxiety; I48.91 Unspecified atrial fibrillation; J44.9 Chronic obstructive pulmonary disease, unspecified; E87.6 Hypokalemia; J45.909 Unspecified asthma, uncomplicated; Z79.01 Long term (current) use of anticoagulants; E78.00 Pure hypercholesterolemia, unspecified; M81.0 Age-related osteoporosis without current pathological fracture; Z66 Do not resuscitate; R29.810 Facial weakness; R47.02 Dysphasia; F80.2 Mixed receptive-expressive language disorder; I68.0 Cerebral amyloid angiopathy; B96.20 Unspecified Escherichia coli [E. coli] as the cause of diseases classified elsewhere